=== PATIENT | female | born 1950 | race Caucasian/White ===

== ENCOUNTER 2019-05-27 09:10 | Outpatient (CLI) | payer MEDICARE, SELFPAY ==
--- NOTE | ~2019-05-27 | MM_ITS ---
EXAMINATION: MM screening ben BI w sharan HISTORY: Screening mammogram TECHNIQUE: Craniocaudal and mediolateral oblique 3-D tomosynthesis images were obtained and synthetic 2-D images were generated. CAD analysis was submitted and interpreted. COMPARISON: 05/25/2018 bilateral digital screening mammogram BREAST PARENCHYMAL COMPOSITION: There are scattered areas of fibroglandular density. FINDINGS: There is an approximately 4.7 mm circumscribed low-density opacity anteriorly in the right breast in the lateral periareolar area and a similar slightly larger approximately 6.6 mm circumscrib ed opacity anteriorly in the left lateral subareolar area. The circumscribed margins are suggestive of benign process. Further supporting benign impression inst ability of these opacities since 05/25/2018. Occasional benign calcifications are noted. No suspicious mass or architectural distortion is evident. IMPRESSION: 1. No mammographic evidence of malignancy. 2. Recommend routine screening mammography in one year. BI-RADS Category 2: Benign finding(s). Reviewed, dictated and finalized at location A. O NEWS WRITER
== END 2019-05-27 09:11 | disposition home or self-care (01) ==
LOC: ANHIMG 09:17
PROVIDERS: PCP Internal Medicine; Visit Provider Obstetrics & Gynecology
DX: Z12.31 Encounter for screening mammogram for malignant neoplasm of breast (principal)
CPT/HCPCS: 77063; 77067

== ENCOUNTER 2019-12-11 10:45 | Emergency (ER) | payer MEDICARE, SELFPAY ==
--- NOTE | ~2019-12-11 | CT_ITS ---
EXAMINATION: CTA BRAIN/CAROTID DATE: 12/11/2019 12:26 INDICATION: Headache, vision changes and paresthesias TECHNIQUE: Computed tomographic angiography (CTA) of the head and neck was performed with 100 mL Omni paque-350 intravenous contrast. Multiplanar reconstructions and maximum intensity projection 3D-recon structions of the carotid arteries and of the intracranial arteries were created by the technologist on a separate workstation. Precontrast CT of the head was also obtained. Automated exposure control and iterative reconstruction technique were employed.The dose-length product was 1477.93 mGy-cm. COMPARISON: None. FINDINGS: Carotid arteries: There is mild atherosclerotic plaque with 0% stenosis of the left and right carotid bulbs relative to normal distal artery lumen diameter (NASCET criteria). Short segments of the more cephalad left and right internal carotid arteries are obscured by motion artifact. Cervical soft tissues are unremarkab le. Moderate cervical spondylosis with straightening of the normal cervical lordosis. Visualized port ions of the airway and apices of lungs are clear. Head: No acute intracranial hemorrhage, acute infarction or abnormal extra axial fluid collection. Ventricl es are normal and symmetric. No mass/mass effect. Abnormally enhancing brain lesions. The orbits, par anasal sinuses and mastoid air cells are normal. Intracranial arteries There is no hemodynamically significant stenosis in the vertebral, basilar and internal carotid arter ies. Vertebral arteries are codominant. There are no aneurysms identified. Both A1 and P1 segments a re patent. Cerebral arterial arborization appears symmetric. IMPRESSION: 1. 0% stenosis of the left and right carotid bulbs relative to normal distal artery lumen diameter (N ASCET criteria). 2. No acute intracranial process or abnormally enhancing brain lesions. 3. Normal cerebral angiogram. Reviewed, dictated and finalized at location A. IMPRESSION: 1. 0% stenosis of the left and right carotid bulbs relative to normal distal ar rosa lumen diameter (NASCET criteria). 2. No acute intracranial process or abnormally enhancing brain lesions. 3. Normal cerebral angiogram.
[2019-12-11 10:54] VITALS: BP 144/69; PULSE 65; RESP 18; TEMP 36.6; O2SAT 100
--- NOTE | 2019-12-11 11:10 | ECG_ITS ---
Measurements Intervals [place] Rate: 60 P: 49 AR: 193 QRS: -47 QRSD: 98 T: 7 QT: 387 QTc: 387 Interpretive Statements SINUS RHYTHM LEFT ANTERIOR FASCICULAR BLOCK BORDERLINE T WAVE ABNORMALITY- ANTERIOR LEADS ABNORMAL ECG Electronically Signed On 12-11-2019 11:58:34 CDT by Ulices Garcia D.O.
--- NOTE | 2019-12-11 11:13 | ED.NEUROSD ---
HPI - Neuro Symptoms/Deficit General Chief Complaint: Neuro Symptoms/Deficit <Yamileth Byrne PA-C - Last Filed: 12/11/19 14:24> Stated Complaint: stroke symptoms <CANDIE Lomas Last Filed: 12/11/19 14:24> Time Seen by Provider: 12/11/19 11:01 <CANDIE Lomas Last Filed: 12/11/19 14:24> Source: patient <CANDIE Lomas Last Filed: 12/11/19 14:24> Mode of arrival: ambulatory <CANDIE Lomas Last Filed: 12/11/19 14:24> Limitations: no limitations <CANDIE Lomas Last Filed: 12/11/19 14:24> History of Present Illness HPI Narrative: This is a 69-year-old female that presents the emergency department for headache since yesterday. Reports yesterday she started to have some flashes in her eyes. Reports she then developed a headache. Reports she started to get very anxious and had tingling in her hands. Reports she then went to see her eye doctor who told her everything looked good with her vision. She had a similar episode this morning which prompted her to be seen in the ED. Reports a mild headache right now, otherwise has no complaints. Denies fever, stiff neck, vomiting, numbness, or weakness. <CANDIE Lomas Last Filed: 12/11/19 14:24> Related Data Home Medications: Home Medications Medication Instructions Recorded Confirmed alprazolam 0.25 mg PO PRN 12/11/19 atorvastatin 20 mg PO DAILY 12/11/19 ergocalciferol (vitamin D2) 1,250 mcg PO 12/11/19 escitalopram oxalate 10 mg PO DAILY 12/11/19 montelukast [Singulair] 4 mg PO 12/11/19 <CANDIE Lomas Last Filed: 12/11/19 14:24> Allergies/Adverse Reactions: Allergies Allergy/AdvReac Type Severity Reaction Status Date / Time No Known Allergies Allergy Unknown Verified 12/11/19 11:01 <CANDIE Lomas Last Filed: 12/11/19 14:24> Review of Systems Review of Systems: Narrative: CONSTITUTIONAL: Denies fever EYES: Reports visual changes ENT: Denies rhinorrhea, congestion, sore throat CARDIOVASCULAR: Denies chest pain RESPIRATORY: Denies dyspnea. GASTROINTESTINAL: Denies vomiting NEUROLOGIC: Reports headache. Denies numbness, or weakness. <Yamileth Byrne PA-C - Last Filed: 12/11/19 14:24> All systems reviewed & are unremarkable except as noted in HPI and below <Yamileth Byrne PA-C - Last Filed: 12/11/19 14:24> PMFSH Past Medical History Medical History: Medical History (Updated 12/11/19 @ 14:24 by Yamileth Byrne PA-C) History of anxiety History of hyperlipidemia <Yamileth Byrne PA-C - Last Filed: 12/11/19 14:24> Social History Social History: Social History (Updated 12/11/19 @ 11:16 by Yamileth Byrne PA-C) Smoking status: Never smoker Alcohol intake: current Substance use: never Gender identity (if verbalized by the patient): Female <Yamileth Byrne PA-C - Last Filed: 12/11/19 14:24> Exam Narrative: Exam Narrative: GENERAL: Well-appearing, well-nourished, and in no acute distress. HEAD: Normocephalic, atraumatic. EYES: PERRLA and EOMI. ENT: Nares clear, no rhinorrhea or epistaxis. Mucous membranes moist. Oropharynx without tonsillar hypertrophy exudate or other lesions. Bilateral TMs pearly becerra non-bulging NECK: Supple. No adenopathy or masses. No carotid bruits or JVD CHEST: Clear to auscultation. No respiratory distress. No wheezes rales or rhonchi HEART: Regular rate and rhythm. No murmur heard. Normal peripheral pulses. ABDOMEN: Soft, nontender, nondistended, normal active bowel sounds. EXTREMITIES: Normal range of motion. No edema. Strength equal in bilateral upper and lower extremities (5/5) SKIN: Warm, dry, no rash. NEURO: No focal deficits. Alert and oriented x3. Cranial nerves II through XII grossly intact. Normal [id number] PSYCH: Normal mood and affect <Yamileth Byrne PA-C - Last Filed: 12/11/19 14:24> Course Vital Signs Vital signs: Vital Signs Temperature 36.6 C
[2019-12-11 11:16] VITALS: BP 115/47; PULSE 61; RESP 26; O2SAT 96
[2019-12-11 11:30] LABS: Glucose Point of Care 101 (65-105)
[2019-12-11 11:35] LABS: Basophils Absolute Auto 0.1 K/mm3 (0.0-0.1); Basophils Percent Auto 0.8 % (0.2-1.2); Eosinophils Absolute Auto 0.1 K/mm3 (0-0.3); Eosinophils Percent Auto 1.1 % (0-4.4); Hemoglobin 12.7 g/dL (12.0-15.0); Immature Granulocyte Absolute 0.02 K/mm3 (0.00-0.031); Immature Granulocyte Percent A 0.3 % (0-0.5); Lymphocytes Absolute Auto 1.29 K/mm3 (0.9-3.2); Mean Corpuscular HGB Conc 33.4 g/dl (32-36); Mean Corpuscular Hemoglobin 26.4 pg (26-34); Mean Platelet Volume 9.4 fl (7.4-10.4); Monocytes Absolute Auto 0.5 K/mm3 (0.1-0.6); Monocytes Percent Auto 7.7 % (2.6-8.5); Neutrophils Absolute Auto 4.2 K/mm3 (1.3-6.7); Neutrophils Percent Auto 69.1 % (45.5-73.1); Platelet Count Result 328 k/mm3 (150-375); Red Blood Count 4.81 M/mm3 (4.2-5.4); Red Cell Distribution Width 13.7 % (11.5-14.5); White Blood Count 6.1 K/mm3 (4.5-10.0)
[2019-12-11 11:45] LABS: INR 1.1; Partial Thromboplastin Time 26.2 SECONDS (22.3-36.8); Prothrombin Time 13.4 Seconds (11.1-14.7)
[2019-12-11 11:49] LABS: Anion Gap 8 mmol/L (8-16); Blood Urea Nitrogen 13 mg/dL (7-17); Calcium 8.8 mg/dL (8.4-10.2); Carbon Dioxide 24 mmol/L (22-30); Chloride 96 mmol/L (98-107); Estimated CRCL calculation 37 ml/min; Estimated Glomerular Filt Rate 49; Glucose 99 mg/dL (65-105); Potassium 4.3 mmol/L (3.4-5.0); Sodium 128 mmol/L (137-145)
[2019-12-11 11:58] LABS: Troponin I < 0.012 ng/mL (0.000-0.034)
[2019-12-11 13:31] VITALS: BP 118/67; PULSE 61; RESP 25; O2SAT 99
[2019-12-11 13:46] VITALS: BP 111/62; PULSE 59; RESP 26; O2SAT 100
== END 2019-12-11 15:04 | disposition home or self-care (01) ==
PROVIDERS: Physician Assistant; Emergency Provider Emergency Medicine; PCP Internal Medicine
DX: R51 Headache (principal); F41.9 Anxiety disorder, unspecified; E78.5 Hyperlipidemia, unspecified; I44.4 Left anterior fascicular block; R94.31 Abnormal electrocardiogram [ECG] [EKG]; E87.1 Hypo-osmolality and hyponatremia
CPT/HCPCS: 36415; 70496; 70498; 80048; 82948; 84484; 85025; 85610; 85730; 93005; 99284; Q9967

== ENCOUNTER 2020-02-10 12:03 | Outpatient (CLI) | payer MEDICARE, SELFPAY ==
--- NOTE | ~2020-02-10 | XR_ITS ---
XR chest 2V DATE: 02/10/2020 12:24 INDICATION: Hypoosmolality TECHNIQUE: PA and lateral views COMPARISON: 06/02/2017 AP and lateral chest FINDINGS: Normal heart size. No hilar or mediastinal enlargement. The lungs are hyperinflated but [place] ar of infiltrate or consolidation. No pleural effusion or pulmonary vascular congestion or pneumothor ax. No hilar or mediastinal enlargement. There is aortic arch calcification. There is thoracic and lumbar scoliosis and degenerative change. IMPRESSION: Bilateral hyperinflation; no active cardiac pulmonary disease Reviewed, dictated and finalized at location A.
== END 2020-02-10 12:04 | disposition home or self-care (01) ==
PROVIDERS: PCP Internal Medicine; Visit Provider Internal Medicine Nephrology
DX: E87.1 Hypo-osmolality and hyponatremia (principal); R91.8 Other nonspecific abnormal finding of lung field
CPT/HCPCS: 71046

== ENCOUNTER 2020-05-31 13:39 | Outpatient (CLI) | payer MEDICARE, SELFPAY ==
--- NOTE | ~2020-05-31 | MM_ITS ---
EXAMINATION: MM screening [facility] BI w sharan HISTORY: Screening TECHNIQUE: Craniocaudal and mediolateral oblique 3-D tomosynthesis images were obtained and synthetic 2-D images were generated. CAD analysis was submitted and interpreted. COMPARISON: Comparison to multiple prior studies sequentially, with oldest reviewed study dated 05/25. BREAST PARENCHYMAL COMPOSITION: There are scattered areas of fibroglandular density. FINDINGS: There are stable benign-appearing bilateral breast masses. There is no evidence of suspicio us mass, calcification, or architectural distortion to suggest malignancy in either breast. There has been no suspicious interval change. IMPRESSION: 1. No mammographic evidence of malignancy. 2. Recommend routine screening mammography in one year. BI-RADS Category 2: Benign finding(s). Reviewed, dictated and finalized at location A. OGRAPHIC PRINTING PRESS OPERATOR
== END 2020-05-31 13:40 | disposition home or self-care (01) ==
LOC: ANHIMG 13:42
PROVIDERS: PCP Internal Medicine; Visit Provider Obstetrics & Gynecology
DX: Z12.31 Encounter for screening mammogram for malignant neoplasm of breast (principal)
CPT/HCPCS: 77063; 77067

== ENCOUNTER 2020-08-06 12:31 | Emergency (ER) | payer MEDICARE, SELFPAY ==
[2020-08-06] VITALS (9 sets, daily range): BP systolic 100–136; BP diastolic 54–59; PULSE 56–71; RESP 16–24; TEMP 36; O2SAT 81–100
--- NOTE | ~2020-08-06 | CT_ITS ---
EXAMINATION: CT brain wo con DATE: 08/06/2020 13:12 INDICATION: Expressive aphasia. TECHNIQUE: Computed tomography (CT) of the head was performed without intravenous contrast. The mA wa s adjusted according to patient size. Iterative reconstruction technique was employed. The dose-lengt h product was 605.33 mGy-cm. COMPARISON: Head CT 12/11/2019 FINDINGS: There is no intracranial hemorrhage, acute infarction, or abnormal intracranial mass lesion . The ventricles are normal in size. There are likely changes of ocular lens replacement surgeries. T he paranasal sinuses are clear. The mastoid air cells are normal. IMPRESSION: 1. Normal brain. Reviewed, dictated and finalized at location A. IMPRESSION: 1. Normal brain.
--- NOTE | ~2020-08-06 | XR_ITS ---
EXAMINATION: XR chest 2V DATE: 08/06/2020 13:30 INDICATION: Slurred speech. Headache. TECHNIQUE: Frontal and lateral views of the chest were obtained. COMPARISON: Chest 2 views 02/10/2020 FINDINGS: The chest demonstrates clear lungs without pneumonia, pleural effusion, or pneumothorax. Th e heart size is normal. There is mild chronic anterior wedging of multiple thoracolumbar vertebral tarah dies. IMPRESSION: 1. No acute cardiopulmonary disease. Reviewed, dictated and finalized at location A.
--- NOTE | 2020-08-06 12:45 | ECG_ITS ---
Measurements Intervals [place] Rate: 61 P: 46 [place]: 135 QRS: -50 QRSD: 101 T: 42 QT: 382 QTc: 385 Interpretive Statements SINUS RHYTHM LEFT ANTERIOR FASCICULAR BLOCK BASELINE ARTIFACT- I, III, V3 ABNORMAL ECG Electronically Signed On 08-06-2020 14:16:43 CDT by Ulices Garcia D.O.
[2020-08-06] MEDS: diphenhydrAMINE HCl INJ 50 MG/ML VIAL 25 MG IV PUSH (13:19)
[2020-08-06] MEDS: KETOROLAC 15 MG/ML VIAL (*BKC) IV PUSH (13:19)
--- NOTE | 2020-08-06 13:19 | ED.NEUROSD ---
HPI - Neuro Symptoms/Deficit General Chief Complaint: Neuro Symptoms/Deficit Stated Complaint: Possible TIA Time Seen by Provider: 08/06/20 12:31 History of Present Illness HPI Narrative: Patient is a 70-year-old female who presents ER with concerns for TIA. She reports that earlier today she began to have visual disturbance where there are lights going through her vision. They are multicolored. They wax and wane in intensity. She is still able to read and she has no double vision. No photophobia. Patient denies headache. She then reports that she started getting a little confused and could not do some math when she was finishing breakfast around 11 AM. She then called her daughter and was having difficulty having a conversation. Patient reports she could physically speak and make sense but she could not carry on a conversation due to inability to express her thoughts because she cannot gather her thoughts. No facial droop or focal weakness in arm or leg. No previous history of CVA. Patient had similar episodes this in November 2019 that were diagnosed as headache, potentially atypical migraine but patient has no history of migraines. At that time she had a CTA that was normal. Related Data Home Medications Medication Instructions Recorded Confirmed alprazolam 0.25 mg PO PRN 12/11/19 atorvastatin 20 mg PO DAILY 12/11/19 ergocalciferol (vitamin D2) 1,250 mcg PO 12/11/19 escitalopram oxalate 10 mg PO DAILY 12/11/19 montelukast [Singulair] 4 mg PO 12/11/19 denosumab 60 mg/mL subcutaneous 60 mg SUB-Q [id number] 12/29/19 syringe cyclosporine [Restasis] drp 08/06/20 loteprednol etabonate [Lotemax SM] drp 08/06/20 Allergies Allergy/AdvReac Type Severity Reaction Status Date / Time No Known Allergies Allergy Unknown Verified 08/06/20 12:42 Review of Systems Review of Systems: All systems reviewed & are unremarkable except as noted in HPI and below Constitutional: Constitutional: Denies chills, Denies fever(s) and Denies weakness Eyes: Eyes: Reports change in vision and Denies photophobia ENT: Denies nasal congestion and Denies sore throat Cardiovascular: Cardiovascular: Denies chest pain and Denies rapid heart rate Respiratory: Respiratory: Denies cough and Denies dyspnea Gastrointestinal: Gastrointestinal: Denies nausea and Denies vomiting Neurologic: Reports confusion, Denies dizziness, Denies headache(s), Denies focal weakness, Denies numbness and Denies weakness PMFSH Past Medical History Medical History (Updated 08/06/20 @ 14:57 by Tyler Bowles MD) History of anxiety History of hyperlipidemia Surgical History Surgical History (Updated 07/25/20 @ 14:58 by Yamilet Becerra [facility]) History of bladder surgery Hx of breast reduction, elective Family History Family History (Updated 07/25/20 @ 14:58 by Yamilet Becerra [facility]) Mother Hypertension Cancer Father Hypertension Grandparent Cancer Alzheimers disease Social History Social History (Updated 07/25/20 @ 14:59 by Yamilet Becerra [facility]) Smoking status: Never smoker Alcohol intake: current Substance use: never Substance use type: does not use Gender identity (if verbalized by the patient): Female Exam Narrative: Exam Narrative: GENERAL: Well-appearing, well-nourished, and in no acute distress. HEAD: Normocephalic, atraumatic. EYES: PERRLA and EOMI. ENT: Mucous membranes moist. CHEST: Clear to auscultation. No respiratory distress. HEART: Regular rate and rhythm. No murmur heard. Normal peripheral pulses. ABDOMEN: Soft, nontender, nondistended. EXTREMITIES: Normal range of motion. No edema. SKIN: Warm, dry, no rash. NEURO: Cranial nerves II through XII intact. No upper or lower extremity drift. Normal finger-nose testing and [id number] testing. No expressive aphasia or dysarthria. Alert and oriented x3.. Course Course Emergency Course: Informed of results. Sx resolved with reglan/toradol/benadryl/iv
[2020-08-06] MEDS: METOCLOPRAMIDE HCL INJ 10 MG/2 ML VIAL IV PUSH (13:20)
[2020-08-06] MEDS: SODIUM CHLORIDE 0.9% IV 1,000 ML 999 ML IV CONT (13:20)
[2020-08-06 13:35] LABS: Basophils Absolute Auto 0.1 K/mm3 (0.0-0.1); Basophils Percent Auto 0.8 % (0.2-1.2); Eosinophils Absolute Auto 0.1 K/mm3 (0-0.3); Eosinophils Percent Auto 1.1 % (0-4.4); Hematocrit 42.2 % (37.0-47.0); Hemoglobin 13.5 g/dL (12.0-15.0); Immature Granulocyte Absolute 0.01 K/mm3 (0.00-0.031); Immature Granulocyte Percent A 0.2 % (0-0.5); Lymphocytes Absolute Auto 1.76 K/mm3 (0.9-3.2); Lymphocytes Percent Auto 28.5 % (18.3-44.2); Mean Corpuscular Hemoglobin 26.4 pg (26-34); Mean Corpuscular Volume 82.4 fl (80-100); Mean Platelet Volume 9.7 fl (7.4-10.4); Monocytes Absolute Auto 0.4 K/mm3 (0.1-0.6); Monocytes Percent Auto 6.6 % (2.6-8.5); Neutrophils Absolute Auto 3.9 K/mm3 (1.3-6.7); Neutrophils Percent Auto 62.8 % (45.5-73.1); Platelet Count Result 323 k/mm3 (150-375); Red Blood Count 5.12 M/mm3 (4.2-5.4); Red Cell Distribution Width 14.1 % (11.5-14.5); White Blood Count 6.2 K/mm3 (4.5-10.0)
[2020-08-06 13:39] LABS: Add Urine Microscopic? YES; Appearance Urine Clear (Clear); Bilirubin Urine Negative (Negative); Blood Urine 1+ (Negative); Color Urine Straw (Yellow); Glucose Urine UA Negative (Negative); Ketones Urine Negative (Negative); Leukocyte Esterase Ur Negative LEU/UL (Negative); Mucus Urine Rare /lpf; Nitrate Urine Negative (Negative); Protein Urine Negative (Negative); RBC Urine 0-2 /hpf (0-2); Specific Grav Ur 1.008 (1.001-1.035); Squamous Epithelial Cell Urine Rare /hpf (Few); Urobilinogen Urine Negative mg/dL (<2.0); WBC Urine 0-3 /hpf
[2020-08-06 13:44] LABS: Anion Gap 6 mmol/L (8-16); Blood Urea Nitrogen 18 mg/dL (7-17); Calcium 9.4 mg/dL (8.4-10.2); Carbon Dioxide 29 mmol/L (22-30); Chloride 101 mmol/L (98-107); Estimated CRCL calculation 31 ml/min; Estimated Glomerular Filt Rate 40; Glucose 121 mg/dL (65-105); Potassium 3.7 mmol/L (3.4-5.0); Sodium 136 mmol/L (137-145)
[2020-08-06 13:50] LABS: INR 0.9; Prothrombin Time 12.7 Seconds (11.1-14.7)
[2020-08-06 13:56] LABS: Troponin I < 0.012 ng/mL (0.000-0.034)
== END 2020-08-06 15:17 | disposition home or self-care (01) ==
PROVIDERS: Emergency Provider Emergency Medicine; PCP Internal Medicine
DX: G43.909 Migraine, unspecified, not intractable, without status migrainosus (principal); F41.9 Anxiety disorder, unspecified; E78.5 Hyperlipidemia, unspecified; I44.4 Left anterior fascicular block
CPT/HCPCS: 36415; 70450; 71046; 80048; 81001; 84484; 85025; 85610; 85730; 93005; 96361; 96374; 96375; 99284; J1200; J1885; J2765; J7030

== ENCOUNTER 2020-11-16 12:34 | Outpatient (CLI) | payer MEDICARE, SELFPAY ==
--- NOTE | ~2020-11-16 | NM_ITS ---
EXAMINATION: NM renal flow and function DATE: 11/16/2020 14:50 INDICATION: Gauge 3 be chronic kidney disease TECHNIQUE: 8 mCi Tc-99m MAG3 was administered IV. The patient was scanned in the supine position. A posterior abdominal radionuclide angiogram was obtained. A subsequent time course of static images of the kidneys, ureters, and bladder was obtained. COMPARISON: None FINDINGS: The posterior abdominal radionuclide angiogram and sequential static images show normal size, positio n, and morphology of the kidneys. Peak renal parenchymal uptake was 2.5 min in left kidney and 2.5 mi n in right kidney (normal peak 3-5 minutes). The relative early renal uptake was 36.9% on the left a nd 63.1% on the right (<40% is abnormal). No abnormalities of the ureters or bladder are seen. T1/2 for clearance of activity from the left kidney and proximal collecting system was 9 minutes. T1/2 for clearance of activity from the right kidney and proximal collecting system was 24 minutes. IMPRESSION: 1. Mildly decreased relative renal function of the left kidney which contributes 36.9% of total tra l function. 2. Delayed activity clearance from the right kidney with T1/2 of 24 minutes. This could be due to no nspecific nephropathy, obstruction or a patulous collecting system. Given that the T1/2 remains lexi l in the left kidney which provides a lesser degree of total renal function and the fact that the jayro ority of the activity on the delayed images at the right kidney appears localized to the renal hilum would favor either obstruction or patulous collecting system. Would recommend renal ultrasound to ass ess for hydronephrosis. Could also consider diuretic renography. Reviewed, dictated and finalized at location A. IMPRESSION: 1. Mildly decreased relative renal function of the left kidney which contribut es 36.9% of total renal function. 2. Delayed activity clearance from the right kidney with T1/2 of 24 minutes. T his could be due to nonspecific nephropathy, obstruction or a patulous collecti ng system. Given that the T1/2 remains normal in the left kidney which provides a lesser degree of total renal function and the fact that the majority of the activity on the delayed images at the right kidney appears localized to the noah al hilum would favor either obstruction or patulous collecting system. Would re commend renal ultrasound to assess for hydronephrosis. Could also consider diur etic renography.
== END 2020-11-16 12:35 | disposition home or self-care (01) ==
LOC: ANHIMG 12:35
PROVIDERS: PCP Internal Medicine; Visit Provider Internal Medicine Nephrology
DX: N18.32 Chronic kidney disease, stage 3b (principal)
CPT/HCPCS: 78707; A9562

== ENCOUNTER 2020-12-06 15:22 | Outpatient (CLI) | payer MEDICARE, SELFPAY ==
--- NOTE | ~2020-12-06 | US_ITS ---
EXAMINATION: US renal BI DATE: 12/06/2020 15:43 INDICATION: Stage III B chronic kidney disease TECHNIQUE: Multiple ultrasound grayscale images of the kidneys were obtained. COMPARISON: 03/10/2018 FINDINGS: The right kidney measures 8.2 x 4.1 x 4.1 cm. The left kidney measures 8.6 x 3.8 x 4.9 cm. The kidney s demonstrate normal echogenicity. There is no hydronephrosis in either kidney. No stones identified . The bladder is normal. IMPRESSION: 1. Likely age-related mild bilateral renal atrophy. Otherwise normal kidneys with no hydronephrosis. Reviewed, dictated and finalized at location B. IMPRESSION: 1. Likely age-related mild bilateral renal atrophy. Otherwise normal kidneys w ith no hydronephrosis.
== END 2020-12-06 15:23 | disposition home or self-care (01) ==
LOC: ANHIMG 15:23
PROVIDERS: PCP Internal Medicine; Visit Provider Internal Medicine Nephrology
DX: N18.32 Chronic kidney disease, stage 3b (principal)
CPT/HCPCS: 76775

== ENCOUNTER 2021-07-12 15:32 | Outpatient (CLI) | payer MEDICARE, SELFPAY ==
--- NOTE | ~2021-07-12 | MM_ITS ---
EXAMINATION: MM screening ben BI w sharan HISTORY: Screening mammogram, family history of breast cancer in her sister. TECHNIQUE: Craniocaudal and mediolateral oblique 3-D tomosynthesis images were obtained and synthetic 2-D images were generated. CAD analysis was submitted and interpreted. COMPARISON: 05/31/2020, 05/27/2019, 05/25/2018 BREAST PARENCHYMAL COMPOSITION: There are scattered areas of fibroglandular density. FINDINGS: There is no suspicious mass, calcification, or architectural distortion to suggest malignan cy in either breast. There has been no suspicious interval change. IMPRESSION: 1. No mammographic evidence of malignancy. 2. Recommend routine screening mammography in one year. BI-RADS Category 1: Negative Reviewed, dictated and finalized at location A.
== END 2021-07-12 15:33 | disposition home or self-care (01) ==
PROVIDERS: PCP Internal Medicine; Visit Provider Obstetrics & Gynecology
DX: Z12.31 Encounter for screening mammogram for malignant neoplasm of breast (principal)
CPT/HCPCS: 77063; 77067

== ENCOUNTER 2021-12-03 13:30 | Outpatient (RCR) | payer MEDICARE, SELFPAY ==
--- NOTE | 2021-11-07 13:31 | PTOPEVAL ---
PHYSICAL THERAPY INITIAL EVALUATION. Thank you for referring Lucia Blas to [facility].? The patient is scheduled to be seen for therapy? 1x/week for 4 weeks. Please review, sign, date and return this plan of care PRIYA. I agree with and certify that the following plan of care is medically necessary. Referring Physician Date Attending Provider: Arie Ramey, MD *PT Outpatient Evaluation Start: 11/07/21 Evaluation Information Diagnosis low back pain Subjective Information Pt reports a long history of Query Text:As Reported By Patient/ mild low back pain with some Family scoliosis. Pt states a couple of months ago she was trying to move her refrigerator away from the wall. She states initially she had pain on both sides with pain radiating down into her R leg. She states the radiating symptoms down her leg have since stopped. She reports the back is still sore, her soreness increases with activity. She is now able to sleep through the night without pain. She states she can sit for as long as she wants, and her standing time has always been limited. Pain Assessment Lower Back Reported Pain Level 0 Pain Description Aching,Soreness,Tightness Lowest Pain Intensity 0 Greatest Pain Intensity 4 Pain Aggravating Factors Bending,Exercise/Activity Lumbar ROM Lumbar Flexion (0-90) 60 Lumbar Flexion Active Floor Lumbar Extension (0-40) 30 Lateral Flexion able to reach lateral knee Query Text:Active Hands to: joint line bilaterally Lateral Rotation Right (0-45) 35 Lateral Rotation Left (0-45) 35 Lumbar ROM 75% of Normal Lumbar Comments Majority of motion through hip flexion Lower Extremity Range of Motion General Lower Extremity Range of Motion WFL/Left,WFL/Right Lower Extremity Muscle Strength Testing General Lower Extremity Strength WFL/Left,WFL/Right Gross Lower Extremity Strength José LE grossly 4+/5 josé hip abduction 3/5 Muscle Length Testing Piriformis w/Hip Flexion <90 Degrees (R) WFL,(L) WFL Right Prone Hip Internal Rotator Length 30 Left Prone Hip Internal Rotator Length ( 30 Right Prone Hip External Rotator Length 60 Left P
--- NOTE | 2021-12-03 14:11 | PTOPEVAL ---
PHYSICAL THERAPY PROGRESS REPORT AND DISCHARGE SUMMARY. Thank you for referring Lucia Blas to [facility].? The patient is to be discharged from skilled physical therapy services at this time. Please review, sign, date and return this plan of care PRIYA. I agree with and certify that the following plan of care is medically necessary. Referring Physician Date Attending Provider: Arie Ramey, MD *PT Outpatient Evaluation Start: 11/07/21 Evaluation Information Diagnosis low back pain Subjective Information Pt states things are getting Query Text:As Reported By Patient/ better. She states her Family exercises help a lot. She states she is as good as she thinks she can get considering the arthritis in her back. She reports being able to stand for at least 20 min still prior to needing to sit. Pt reports she pulled weeds this morning. Pain Assessment Lower Back Reported Pain Level 0 Pain Description Aching Greatest Pain Intensity 2 Lumbar ROM Lumbar Flexion (0-90) 60 Lumbar Flexion Active Floor Lumbar Extension (0-40) 30 Lateral Flexion able to reach lateral knee Query Text:Active Hands to: joint line bilaterally Lateral Rotation Right (0-45) 40 Lateral Rotation Left (0-45) 40 Lumbar ROM 75% of Normal Lumbar Comments Majority of motion through hip flexion Lower Extremity Range of Motion General Lower Extremity Range of Motion WFL/Left,WFL/Right Lower Extremity Muscle Strength Testing General Lower Extremity Strength WFL/Left,WFL/Right Gross Lower Extremity Strength José LE grossly 4+/5 josé hip abduction 4-/5 - able to lift and carry 20lb from ground level without deviations Gait Assessment Gait Pattern Narrow Based Gait Other Gait Observations mild increased lateral hip sway 2 Minute Walk Total Distance Walked (feet) 470 2 Minute Walk Gait Speed Score (feet/s) 3.91 2 Minute Walk Test Comments Initally: 425ft - Increased reports of thoracic pain after 12/03/21: 470ft - no report of increase back pain Stair Climbing Assessment Stair Climbing Assistive Devices None Technique Alternating Steps Stair Climbing Direction Both Up and Down Stair Climbing Comments no notable deviations Yarelis
== END 2021-12-14 15:30 | disposition home or self-care (01) ==
LOC: ANHGOSHPT 13:30
PROVIDERS: PCP Internal Medicine; Visit Provider Internal Medicine
DX: M54.50 Low back pain, unspecified (principal)
CPT/HCPCS: 97110; 97112; 97140; 97161; 97530

== ENCOUNTER 2022-09-10 11:40 | Emergency (ER) | payer MEDICARE, SELFPAY ==
[2022-09-10] VITALS (18 sets, daily range): BP systolic 115–137; BP diastolic 43–70; PULSE 62–76; RESP 13–27; TEMP 36.3; O2SAT 99–100
--- NOTE | ~2022-09-10 | XR_ITS ---
EXAMINATION: XR chest 2V DATE: 09/10/2022 13:14 INDICATION: Chest pain. TECHNIQUE: Frontal and lateral views of the chest were obtained. COMPARISON: Chest 2 views 08/06/2020 FINDINGS: The chest demonstrates clear lungs without pneumonia, pleural effusion, or pneumothorax. Th e heart size is normal. There are prominent paracardial fat pads. There is a chronic compression frac ture in lower thoracic spine. IMPRESSION: 1. No acute cardiopulmonary disease. Reviewed, dictated and finalized at location L.
--- NOTE | 2022-09-10 11:42 | ECG_ITS ---
Measurements Intervals [place] Rate: 57 P: 62 MA: 168 QRS: -50 QRSD: 102 T: 41 QT: 379 QTc: 372 Interpretive Statements SINUS BRADYCARDIA POSSIBLE LEFT ATRIAL ENLARGEMENT LEFT ANTERIOR FASCICULAR BLOCK CANNOT RULE OUT SEPTAL INFARCT, AGE INDETERMINATE ABNORMAL ECG COMPARED TO ECG 08/06/2020 12:44:26 SINUS BRADYCARDIA NOW PRESENT Electronically Signed On 09-10-2022 15:39:32 CDT by Ulices Garcia D.O.
[2022-09-10 12:45] LABS: Alanine Aminotransferase 22 U/L (6-35); Alkaline Phosphatase 61 U/L (38-126); Anion Gap 7 mmol/L (8-16); Aspartate Amino Transferase 30 U/L (14-36); Bilirubin,Total 0.9 mg/dL (0.2-1.3); Blood Urea Nitrogen 15 mg/dL (7-17); Calcium 9.2 mg/dL (8.4-10.2); Carbon Dioxide 27 mmol/L (22-30); Chloride 96 mmol/L (98-107); Estimated Glomerular Filt Rate 49; Glucose 115 mg/dL (65-110); INR 0.9; Lipase 98 U/L (23-300); Sodium 130 mmol/L (137-145)
[2022-09-10 12:46] LABS: Partial Thromboplastin Time 25.4 SECONDS (22.3-36.8)
[2022-09-10 12:54] LABS: Troponin I < 0.012 ng/mL (0.000-0.034)
--- NOTE | 2022-09-10 13:37 | ED.GENADULT ---
HPI - General Adult General Chief complaint: Chest Pain Stated complaint: UPPER CHEST PRESSURE AFTER EATING Time Seen by Provider: 09/10/22 13:03 History of Present Illness HPI narrative: 72-year-old female presented the ED for evaluation of intermittent difficulty swallowing. Patient states over the course of the last few months she has had some increased difficulty swallowing. Patient states over the last few days it acutely worsened. Patient states yesterday she was trying to eat some vegetable soup and felt that she was unable to get it down. Patient is handling her secretions. Patient states she was able to get liquids and ice cream down without issue. Patient denies any emesis. Patient has had a previous scope by GI and did call her primary care physician today and got set up for outpatient follow-up with Dr. Johnson. Does take Raymondcydney RUSSO. Related Data Home Medications Medication Instructions Recorded Confirmed alprazolam 0.25 mg tablet 0.25 mg PO PRN anxiety 12/11/19 01/11/22 atorvastatin 20 mg tablet 20 mg PO DAILY 12/11/19 01/11/22 ergocalciferol (vitamin D2) 1,250 1,250 mcg PO 12/11/19 01/11/22 mcg (50,000 unit) capsule escitalopram oxalate 10 mg tablet 10 mg PO DAILY 12/11/19 01/11/22 denosumab 60 mg/mL subcutaneous 60 mg subcut [id number] 12/29/19 01/11/22 syringe (Prolia) Allergies Allergy/AdvReac Type Severity Reaction Status Date / Time No Known Allergies Allergy Unknown Verified 05/29/22 15:04 Review of Systems Review of Systems: All systems reviewed & are unremarkable except as noted in HPI and below PMFSH Past Medical History Medical History EDER positive (~2019) History of anxiety History of hyperlipidemia Renal insufficiency Surgical History Surgical History History of bladder surgery Hx of breast reduction, elective Family History Family History Mother Hypertension Cancer Father Hypertension Grandparent Cancer Alzheimers disease Social History Social History Smoking status: Never smoker Alcohol intake: current Substance use: never Substance use type: does not use Lack of Transportation: No Lack of Food: Never True Current Housing: I Have Housing Concerned About Future Housing: No Difficulty Paying Gas/Electric Bills: No Difficulty Paying for Meds: No Currently Unemployed: No Education: Associate Degree Difficulty w/ Childcare or Family Care: No Gender identity (if verbalized by the patient): Female Exam Narrative: APPEARANCE: Well appearing, no pain, no distress, well-nourished. HEAD: normocephalic, atraumatic. EYES: PERRLA/EOMI, conjunctivae clear. NOSE: Normal no drainage NECK: Supple. No adenopathy, no masses. RESPIRATORY: Airway patent, respirations nonlabored. Clear to auscultation bilaterally, no rales, rhonchi, wheezing. CARDIOVASCULAR: Regular rate and rhythm without murmurs rubs or gallops. ABDOMINAL: Soft, nontender, nondistended, normal bowel sounds MUSCULOSKELETAL: Moves all extremities. Strength/ROM intact, No edema, No calf tenderness. NEURO: Alert. Cranial nerves II through XII intact. Grossly intact SKIN: Warm, dry. Normal Color Course Course Emergency Course: Attempting a p.o. challenge. Patient has a CMP that is similar to her baseline. Chest x-ray showed no acute cardiopulmonary process. Patient does take Pepcid AC. Patient is able to tolerate liquids. Case was discussed with Dr. Johnson and he was comfortable with the patient having outpatient follow-up. Patient believes she already does have follow-up scheduled but she was told to call her primary care physician just to make sure that the referral has been processed correctly. Vital Signs Vital signs: Vital Signs Temperature 97.3 F L 0
[2022-09-10 13:50] LABS: Basophils Percent Auto 0.4 % (0.2-1.2); Eosinophils Percent Auto 0.3 % (0-4.4); Hemoglobin 12.6 g/dL (12.0-15.0); Immature Granulocyte Absolute 0.04 K/mm3 (0.00-0.031); Immature Granulocyte Percent A 0.5 % (0-0.5); Lymphocytes Absolute Auto 1.25 K/mm3 (0.9-3.2); Lymphocytes Percent Auto 16.9 % (18.3-44.2); Mean Corpuscular HGB Conc 32.3 g/dl (32-36); Mean Corpuscular Hemoglobin 26.6 pg (26-34); Mean Corpuscular Volume 82.3 fl (80-100); Mean Platelet Volume 9.7 fl (7.4-10.4); Monocytes Absolute Auto 0.4 K/mm3 (0.1-0.6); Monocytes Percent Auto 5.3 % (2.6-8.5); Neutrophils Absolute Auto 5.7 K/mm3 (1.3-6.7); Neutrophils Percent Auto 76.6 % (45.5-73.1); Platelet Count Result 352 k/mm3 (150-375); Red Blood Count 4.74 M/mm3 (4.2-5.4); Red Cell Distribution Width 13.8 % (11.5-14.5); White Blood Count 7.4 K/mm3 (4.5-10.0)
[2022-09-10 15:14] LABS: Troponin I < 0.012 ng/mL (0.000-0.034)
== END 2022-09-10 15:56 | disposition home or self-care (01) ==
PROVIDERS: General Practice; Emergency Provider Emergency Medicine; PCP Internal Medicine
DX: R13.10 Dysphagia, unspecified (principal); E78.5 Hyperlipidemia, unspecified; N28.9 Disorder of kidney and ureter, unspecified; F41.9 Anxiety disorder, unspecified
CPT/HCPCS: 36415; 71046; 80053; 83690; 84484; 85025; 85610; 85730; 93005; 99284

== ENCOUNTER 2022-09-19 10:24 | Outpatient (CLI) | payer MEDICARE, SELFPAY ==
--- NOTE | ~2022-09-19 | MM_ITS ---
EXAMINATION: MM screening ben BI w sharan HISTORY: Screening TECHNIQUE: Craniocaudal and mediolateral oblique 3-D tomosynthesis images were obtained and synthetic 2-D images were generated. CAD analysis was submitted and interpreted. COMPARISON: Comparison to multiple prior studies sequentially, with oldest reviewed study dated 05/25. BREAST PARENCHYMAL COMPOSITION: There are scattered areas of fibroglandular density. FINDINGS: There is no evidence of suspicious mass, calcification, or architectural distortion to sugg est malignancy in either breast. There has been no suspicious interval change. IMPRESSION: 1. No mammographic evidence of malignancy. 2. Recommend routine screening mammography in one year. BI-RADS Category 1: Negative Reviewed, dictated and finalized at location A.
== END 2022-09-19 10:25 | disposition home or self-care (01) ==
PROVIDERS: PCP Internal Medicine; Visit Provider Obstetrics & Gynecology
DX: Z12.31 Encounter for screening mammogram for malignant neoplasm of breast (principal)
CPT/HCPCS: 77063; 77067

== ENCOUNTER 2022-10-09 01:43 | Day surgery (SDC) | payer MEDICARE, SELFPAY ==
[2022-09-27 14:30] VITALS: BMI 24.0
--- NOTE | 2022-10-08 16:26 | PM.HPGS ---
History of Present Illness History of Present Illness Consent: Risks, benefits, and alternatives have been discussed and questions answered. Patient agrees to proceed with procedure. Chief complaint: Upper Abdominal Pain Narrative: Lucia Blas is a 72 year old female with difficulty swallowing. Not only is it difficult to get things to go down but she has pressure in her chest afterwards. she notices particularly when she was using Flonase frequently. She has some heartburn for which she usually uses an [id number] medication as needed. Review of Systems Review of Systems: All systems reviewed & are unremarkable except as noted in HPI and below PMFSH Past Medical History Medical History EDER positive (~2019) History of anxiety History of hyperlipidemia Renal insufficiency Surgical History Surgical History History of bladder surgery Hx of breast reduction, elective Family History Family History Mother Hypertension Cancer Father Hypertension Grandparent Cancer Alzheimers disease Social History Social History Smoking status: Never smoker Alcohol intake: current Alcohol use details: occasionally Substance use: never Substance use type: does not use Lack of Transportation: No Lack of Food: Never True Current Housing: I Have Housing Concerned About Future Housing: No Difficulty Paying Gas/Electric Bills: No Difficulty Paying for Meds: No Currently Unemployed: No Education: Associate Degree Difficulty w/ Childcare or Family Care: No Living arrangements: with family Additional living arrangements comments: lives with disabled Gender identity (if verbalized by the patient): Female Spiritual care concerns: No Meds Home Medications and Allergies Home Medications Medication Instructions Recorded Confirmed Type alprazolam 0.25 mg tablet 0.25 mg PO PRN anxiety 12/11/19 09/27/22 History atorvastatin 20 mg tablet 20 mg PO DAILY 12/11/19 09/27/22 History ergocalciferol (vitamin D2) 1,250 See Rx Instructions .Route .COMPLEX 12/11/19 09/27/22 History mcg (50,000 unit) capsule escitalopram oxalate 10 mg tablet 10 mg PO DAILY 12/11/19 10/09/22 History denosumab 60 mg/mL subcutaneous 60 mg subcut [id number] 12/29/19 09/27/22 History syringe (Prolia) aspirin 81 mg tablet 81 mg PO DAILY 09/27/22 09/27/22 History Allergies Allergy/AdvReac Type Severity Reaction Status Date / Time No Known Allergies Allergy Unknown Verified 10/09/22 09:34 Exam Const: General: alert Orientation/consciousness: patient oriented x3 Resp: Auscultation: clear to auscultation bilaterally Cardio: Rhythm: regular rhythm GI: GI Palp: Yes Soft to palpation and No Tenderness to palpation present (GI) Neuro: General: patient oriented x3 Assessment and Plan Assessment and plan (1) Difficulty in swallowing: Code(s): R13.10 - Dysphagia, unspecified Status: Inactive Assessment and Plan: EGD with possible biopsy or dilatation or cautery.
[2022-10-09 09:35] VITALS: BP 127/53; PULSE 67; RESP 16; TEMP 36.1; O2SAT 100
[2022-10-09] MEDS: LACTATED RINGERS 1,000 ML 150 ML IV CONT (09:45)
--- NOTE | 2022-10-09 10:20 | WPDANESEPPF ---
Anes - Initial Pre Proc Eval Procedure: Operation Date: 10/09/22 10:45 Proposed Procedures p Esophagogastroduodenoscopy - Maurizio Johnson MD Date/Time: 10/09/22 10:20 Surgeon: Maurizio Johnson MD Pre Op Diagnosis: Upper Abdominal Pain Patient Data Age: 72 Gender: F Height: 1.63 m Weight: 63.5 kg Last Vital Signs Temp 97 F L 10/09/22 09:35 Pulse 67 10/09/22 09:35 Resp 16 10/09/22 09:35 BP 127/53 L 10/09/22 09:35 Pulse Ox 100 10/09/22 09:35 O2 Del Method Room Air 10/09/22 09:35 Allergies Allergy/AdvReac Type Severity Reaction Status Date / Time No Known Allergies Allergy Unknown Verified 10/09/22 09:34 Home Medications Medication Instructions Recorded Confirmed Type alprazolam 0.25 mg tablet 0.25 mg PO PRN anxiety 12/11/19 09/27/22 History atorvastatin 20 mg tablet 20 mg PO DAILY 12/11/19 09/27/22 History ergocalciferol (vitamin D2) 1,250 See Rx Instructions .Route .COMPLEX 12/11/19 09/27/22 History mcg (50,000 unit) capsule escitalopram oxalate 10 mg tablet 10 mg PO DAILY 12/11/19 10/09/22 History denosumab 60 mg/mL subcutaneous 60 mg subcut [id number] 12/29/19 09/27/22 History syringe (Prolia) aspirin 81 mg tablet 81 mg PO DAILY 09/27/22 09/27/22 History Patient hx anesthesia problems: none Family hx anesthesia problems: none Results Review: All pre-operative results and documents have been reviewed as part of the pre-operative evaluation. [facility] Past Medical History Medical History EDER positive (~2019) History of anxiety History of hyperlipidemia Renal insufficiency Surgical History Surgical History History of bladder surgery Hx of breast reduction, elective Family History Family History Mother Hypertension Cancer Father Hypertension Grandparent Cancer Alzheimers disease Social History Social History Smoking status: Never smoker Alcohol intake: current Alcohol use details: occasionally Substance use: never Substance use type: does not use Lack of Transportation: No Lack of Food: Never True Current Housing: I Have Housing Concerned About Future Housing: No Difficulty Paying Gas/Electric Bills: No Difficulty Paying for Meds: No Currently Unemployed: No Education: Associate Degree Difficulty w/ Childcare or Family Care: No Living arrangements: with family Additional living arrangements comments: lives with disabled Gender identity (if verbalized by the patient): Female Spiritual care concerns: No Anes - Eval Final PreProcedure Day of Procedure 10/09/22 10:20 Patient weight: normal Heart: regular rate and rhythm Lungs: clear to auscultation Neurological: alert and oriented Last oral intake: >/= 8 hours ASA classification: III Emergent: no Anesthetic plan: proceed Anesthesia type and monitoring: general GIVS and standard monitoring Results Review: All pre-operative results and documents have been reviewed as part of the pre-operative evaluation. Informed Consent: The patient's anesthetic plan and its attendant risks and benefits were discussed with the patient/family/POA. Questions were solicited and answers provided to the satisfaction of the patient/family/POA.
[2022-10-09] MEDS: SIMETHICONE ORAL SUSPENSION 20 MG/0.3 ML 30 ML BOTTLE 0.6 ML IRRIGATION (10:46)
[2022-10-09 10:54] VITALS: BP 89/54; PULSE 75; RESP 19; O2SAT 99
[2022-10-09 11:04] VITALS: BP 111/62; PULSE 61; RESP 16; O2SAT 100
[2022-10-09 11:14] VITALS: BP 116/77; PULSE 63; RESP 17; O2SAT 100
== END 2022-10-09 11:22 | disposition home or self-care (01) ==
PROVIDERS: PCP Internal Medicine; Visit Provider Internal Medicine Gastroenterology
PROC: 0DJ08ZZ Inspection of Upper Intestinal Tract, Via Natural or Artificial Opening Endoscopic (ICD-10-PCS; CPT 43235; principal; 2022-10-09 10:45)
DX: R13.10 Dysphagia, unspecified (principal); K44.9 Diaphragmatic hernia without obstruction or gangrene; E78.5 Hyperlipidemia, unspecified; F41.9 Anxiety disorder, unspecified; R76.0 Raised antibody titer; Z79.620 Long term (current) use of immunosuppressive biologic
CPT/HCPCS: 43239; 87081; 88305; J2704; J7120

== ENCOUNTER 2023-05-27 01:07 | Day surgery (SDC) | payer MEDICARE, SELFPAY ==
[2023-03-27 12:12] VITALS: BMI 23.6
--- NOTE | 2023-05-01 09:38 | PC.NURSE ---
Pt's colonoscopy was rescheduled from 04/22/2023 to now 05/27/2023. PAT call was completed in March. Pt states no changes in health history or medications since then. Pt aware of new date and time 05/27/2023 at 0930/1100.
--- NOTE | 2023-05-23 11:09 | SUR.PREOP ---
Patient called regarding upcoming procedure. VOICEMAIL LEFT REGARDING UPCOMING APPOINTMENT. INSTRUCTED TO CALL WITH ANY QUESTIONS. CONFIRMED TIME AND DATE.
[2023-05-27 09:42] VITALS: BMI 22.4
[2023-05-27 09:45] VITALS: BP 103/46; PULSE 75; RESP 20; TEMP 36; O2SAT 100
[2023-05-27] MEDS: LACTATED RINGERS 1,000 ML 150 ML IV CONT (09:47)
--- NOTE | 2023-05-27 10:37 | WPDANESEPPF ---
Anes - Initial Pre Proc Eval Procedure: Operation Date: 05/27/23 11:00 Proposed Procedures p Colonoscopy - Maurizio Johnson MD Date/Time: 05/27/23 10:37 Surgeon: Maurizio Johnson MD Pre Op Diagnosis: Diarrhea Patient Data Age: 73 Gender: F Height: 1.63 m Weight: 59.1 kg Last Vital Signs Temp 96.8 F L 05/27/23 09:45 Pulse 75 05/27/23 09:45 Resp 20 05/27/23 09:45 BP 103/46 L 05/27/23 09:45 Pulse Ox 100 05/27/23 09:45 O2 Del Method Room Air 05/27/23 09:45 Allergies Allergy/AdvReac Type Severity Reaction Status Date / Time No Known Allergies Allergy Unknown Verified 05/27/23 09:40 Home Medications Medication Instructions Recorded Confirmed Type alprazolam 0.25 mg tablet 0.25 mg PO PRN anxiety 12/11/19 05/27/23 History atorvastatin 20 mg tablet 20 mg PO DAILY 12/11/19 05/27/23 History denosumab 60 mg/mL subcutaneous 60 mg subcut [id number] 12/29/19 05/27/23 History syringe (Prolia) escitalopram oxalate 10 mg tablet 5 mg PO DAILY 11/26/22 05/27/23 History aspirin 81 mg tablet 81 mg PO .qed 12/05/22 05/27/23 History tizanidine 4 mg capsule 4 mg PO TID PRN spasms #20 caps 03/05/23 05/27/23 Rx Pepcid AC 10 mg PO DAILY 03/27/23 05/27/23 History Patient hx anesthesia problems: none Family hx anesthesia problems: none Results Review: All pre-operative results and documents have been reviewed as part of the pre-operative evaluation. [facility] Past Medical History Medical History EDER positive (~2019) History of anxiety History of hyperlipidemia Renal insufficiency Surgical History Surgical History History of bladder surgery Hx of breast reduction, elective Family History Family History Mother Hypertension Cancer Father Hypertension Grandparent Cancer Alzheimers disease Social History Social History Social History: Caffeine- coffee/tea Smoking status: Never smoker Alcohol intake: current Drinks per week: 2 Alcohol use details: occasionally Substance use: never Substance use type: does not use Lack of Transportation: No Lack of Food: Never True Current Housing: I Have Housing Concerned About Future Housing: No Difficulty Paying Gas/Electric Bills: No Difficulty Paying for Meds: No Currently Unemployed: No Education: Associate Degree Difficulty w/ Childcare or Family Care: No Living arrangements: with family Additional living arrangements comments: lives with disabled Occupation/Education: retired Gender identity (if verbalized by the patient): Female Spiritual care concerns: No Anes - Eval Final PreProcedure Day of Procedure 05/27/23 10:37 Patient weight: normal Heart: regular rate and rhythm Lungs: clear to auscultation Airway: Mallampati scale class II Neurological: alert and oriented Last oral intake: >/= 8 hours ASA classification: III Emergent: no Anesthetic plan: proceed Anesthesia type and monitoring: general GIVS and standard monitoring Results Review: All pre-operative results and documents have been reviewed as part of the pre-operative evaluation. Informed Consent: The patient's anesthetic plan and its attendant risks and benefits were discussed with the patient/family/POA. Questions were solicited and answers provided to the satisfaction of the patient/family/POA.
[2023-05-27 11:06] VITALS: BP 94/54; PULSE 67; RESP 24; O2SAT 98
[2023-05-27 11:16] VITALS: BP 96/61; PULSE 65; RESP 19; O2SAT 100
[2023-05-27 11:23] VITALS: BP 111/65; PULSE 62; RESP 16; O2SAT 100
--- NOTE | 2023-05-28 16:56 | PM.HPGS ---
History of Present Illness History of Present Illness Consent: Risks, benefits, and alternatives have been discussed and questions answered. Patient agrees to proceed with procedure. Chief complaint: Diarrhea Narrative: Lucia Blas is a 73 year old female referred for colonoscopy due to chronic diarrhea. Review of Systems Review of Systems: All systems reviewed & are unremarkable except as noted in HPI and below PMFSH Past Medical History Medical History EDER positive (~2019) History of anxiety History of hyperlipidemia Renal insufficiency Surgical History Surgical History History of bladder surgery Hx of breast reduction, elective Family History Family History Mother Hypertension Cancer Father Hypertension Grandparent Cancer Alzheimers disease Social History Social History Social History: Caffeine- coffee/tea Smoking status: Never smoker Alcohol intake: current Drinks per week: 2 Alcohol use details: occasionally Substance use: never Substance use type: does not use Lack of Transportation: No Lack of Food: Never True Current Housing: I Have Housing Concerned About Future Housing: No Difficulty Paying Gas/Electric Bills: No Difficulty Paying for Meds: No Currently Unemployed: No Education: Associate Degree Difficulty w/ Childcare or Family Care: No Living arrangements: with family Additional living arrangements comments: lives with disabled Occupation/Education: retired Gender identity (if verbalized by the patient): Female Spiritual care concerns: No Meds Home Medications and Allergies Home Medications Medication Instructions Recorded Confirmed Type alprazolam 0.25 mg tablet 0.25 mg PO PRN anxiety 12/11/19 05/27/23 History atorvastatin 20 mg tablet 20 mg PO DAILY 12/11/19 05/27/23 History denosumab 60 mg/mL subcutaneous 60 mg subcut [id number] 12/29/19 05/27/23 History syringe (Prolia) escitalopram oxalate 10 mg tablet 5 mg PO DAILY 11/26/22 05/27/23 History aspirin 81 mg tablet 81 mg PO .qed 12/05/22 05/27/23 History tizanidine 4 mg capsule 4 mg PO TID PRN spasms #20 caps 03/05/23 05/27/23 Rx Pepcid AC 10 mg PO DAILY 03/27/23 05/27/23 History Allergies Allergy/AdvReac Type Severity Reaction Status Date / Time No Known Allergies Allergy Unknown Verified 05/27/23 09:40 Exam Const: General: alert Orientation/consciousness: patient oriented x3 Resp: Auscultation: clear to auscultation bilaterally Cardio: Rhythm: regular rhythm GI: GI Palp: Yes Soft to palpation and No Tenderness to palpation present (GI) Neuro: General: patient oriented x3 Assessment and Plan Assessment and plan (1) Chronic diarrhea: Code(s): K52.9 - Noninfective gastroenteritis and colitis, unspecified Status: Acute Assessment and Plan: Colonoscopy with possible biopsy or polypectomy or cautery or injection of substances.
== END 2023-05-27 11:43 | disposition home or self-care (01) ==
PROVIDERS: PCP Internal Medicine; Visit Provider Internal Medicine Gastroenterology
PROC: 0DJD8ZZ Inspection of Lower Intestinal Tract, Via Natural or Artificial Opening Endoscopic (ICD-10-PCS; CPT 45378; principal; 2023-05-27 11:00)
DX: K52.832 Lymphocytic colitis (principal); K57.30 Diverticulosis of large intestine without perforation or abscess without bleeding; E78.5 Hyperlipidemia, unspecified; Z79.82 Long term (current) use of aspirin
CPT/HCPCS: 45380; 88305; J2704; J7120

== ENCOUNTER 2023-10-26 08:37 | Emergency (ER) | payer MEDICARE, SELFPAY ==
--- NOTE | ~2023-10-26 | XR_ITS ---
EXAMINATION: XR chest 2V DATE: 10/26/2023 09:17 INDICATION: Productive cough TECHNIQUE: PA and lateral views of the chest were obtained. COMPARISON: Chest radiograph dated 09/10/2022 FINDINGS: Mild linear discoid atelectasis at the right costophrenic angle and at the left lower lung zone. No o ther airspace opacities, pulmonary edema, pleural effusion or pneumothorax. The cardiomediastinal sandra houette is normal. Mild lower thoracic levocurvature and mild kyphosis with chronic mild anterior com pression fracture of a lower thoracic vertebral body. Moderate thoracic spondylosis. IMPRESSION: 1. Minimal scattered discoid atelectasis in the bilateral lower lungs. No other acute cardiopulmonary disease. Reviewed, dictated and finalized at location A.
[2023-10-26 08:50] VITALS: BP 121/73; PULSE 72; RESP 16; TEMP 36.7; O2SAT 99
--- NOTE | 2023-10-26 08:54 | ED.URI ---
HPI - URI/Sore Throat General Chief Complaint: Upper Respiratory Infection Stated Complaint: COUGH/CONGESTION Time Seen by Provider: 10/26/23 08:54 Source: patient, RN notes reviewed and old records reviewed Mode of arrival: ambulatory Limitations: no limitations History of Present Illness HPI Narrative: patient presents today with complaints of productive cough for approximately 1 week. She denies any fever, chills, sweats. She denies any shortness of breath or wheezing. She is a nonsmoker. She voices no other concerns or complaints at this time. Related Data Home Medications Medication Instructions Recorded Confirmed alprazolam 0.25 mg tablet 0.25 mg PO PRN anxiety 12/11/19 10/26/23 atorvastatin 20 mg tablet 20 mg PO DAILY 12/11/19 10/26/23 denosumab 60 mg/mL subcutaneous 60 mg subcut [id number] 12/29/19 10/26/23 syringe (Prolia) escitalopram oxalate 10 mg tablet 5 mg PO DAILY 11/26/22 10/26/23 Pepcid AC 10 mg PO DAILY 03/27/23 10/26/23 multivitamin 1 tablet PO DAILY 10/26/23 10/26/23 Allergies Allergy/AdvReac Type Severity Reaction Status Date / Time No Known Allergies Allergy Unknown Verified 07/22/23 10:56 Review of Systems Review of Systems: All systems reviewed & are unremarkable except as noted in HPI and below Constitutional: Constitutional: Reports no additional constitutional complaints ENT: Reports system reviewed and no additional complaints, except as documented Cardiovascular: Cardiovascular: Reports no additional cardiovascular complaints Respiratory: Respiratory: Reports no additional respiratory complaints, Denies chest congestion, Reports cough, Reports excessive phlegm production and Denies wheezing Gastrointestinal: Gastrointestinal: Reports no additional gastrointestinal complaints [facility] Past Medical History Medical History EDER positive (~2019) History of anxiety History of hyperlipidemia Lymphocytic colitis Renal insufficiency Surgical History Surgical History History of bladder surgery Hx of breast reduction, elective Family History Family History Mother Hypertension Cancer Father Hypertension Grandparent Cancer Alzheimers disease Social History Social History (Reviewed 10/26/23 @ 09:09 by LEEANN Macario Social History: Caffeine- coffee/tea Smoking status: Never smoker Alcohol intake: current Drinks per week: 2 Alcohol use details: occasionally Substance use: never Substance use type: does not use Do You Feel Safe in your Home?: Yes Lack of Transportation: No Lack of Food: Never True Current Housing: I Have Housing Concerned About Future Housing: No Difficulty Paying Gas/Electric Bills: No Difficulty Paying for Meds: No Currently Unemployed: No Education: Associate Degree Difficulty w/ Childcare or Family Care: No Living arrangements: with family Additional living arrangements comments: lives with disabled Occupation/Education: retired Gender identity (if verbalized by the patient): Female Spiritual care concerns: No Comments At the time of my signature, I reviewed and agree with the nursing past medical, surgical, social, and family history. There is no relevant family history pertinent to the patient complaint. Exam Const: General: cooperative, no acute distress, alert and awake Orientation/consciousness: oriented to person, oriented to place and oriented to time HENMT: Head: normal to inspection Resp: Effort & Inspection: normal respiratory effort and able to speak in complete sentences Auscultation: clear to auscultation bilaterally, no crackles, no rales, no rhonchi and no wheezes Cardio: Palpation: normal PMI Rate: regular rate Rhythm: regular rhythm Heart sounds: S1 normal heart sound present and S2 normal heart
== END 2023-10-26 09:50 | disposition home or self-care (01) ==
PROVIDERS: Emergency Provider Nurse Practitioner Family; PCP Internal Medicine
DX: J18.9 Pneumonia, unspecified organism (principal); E78.5 Hyperlipidemia, unspecified; F41.9 Anxiety disorder, unspecified
CPT/HCPCS: 71046; 99213; G0463

== ENCOUNTER 2023-11-05 10:22 | Outpatient (CLI) | payer MEDICARE, SELFPAY ==
--- NOTE | ~2023-11-05 | XR_ITS ---
EXAMINATION: XR chest 2V 11/05/2023 10:35 INDICATION: Pneumonia PROCEDURE: 2 view chest COMPARISON: 10/26/2023 FINDINGS: The lungs are clear. The cardiomediastinal silhouette is within normal limits. There are no pleural effusions. There is no pneumothorax suspected. There is a hiatal hernia. There are multi ple wedge compression deformities which appear chronic in the lower thoracic and upper lumbar spine. IMPRESSION: 1: NO ACUTE CARDIOPULMONARY DISEASE. Reviewed, dictated and finalized at location B.
== END 2023-11-05 10:23 ==
LOC: GOSHIMG 10:24
PROVIDERS: PCP Internal Medicine; Visit Provider Internal Medicine
DX: J18.9 Pneumonia, unspecified organism (principal)
CPT/HCPCS: 71046

== ENCOUNTER 2023-12-05 07:28 | Outpatient (CLI) | payer MEDICARE, SELFPAY ==
--- NOTE | ~2023-12-05 | MM_ITS ---
EXAMINATION: MM screening ben BI w sharan HISTORY: Screening TECHNIQUE: Craniocaudal and mediolateral oblique 3-D tomosynthesis images were obtained and synthetic 2-D images were generated. CAD analysis was submitted and interpreted. COMPARISON: Comparison to multiple prior studies sequentially, with oldest reviewed study dated 05/25. BREAST PARENCHYMAL COMPOSITION: Not dense: There are scattered areas of fibroglandular density. FINDINGS: There are developing asymmetries in the upper outer quadrant of the right breast, middle th ird. Stable small bilateral benign-appearing breast masses. There are benign right breast calcificati ons. IMPRESSION: 1. Developing right breast focal asymmetry upper outer quadrant middle third. 2. Additional mammographic views and possible breast ultrasound are recommended. BI-RADS Category 0: Incomplete: Needs additional imaging evaluation. Reviewed, dictated and finalized at location B. IMPRESSION: 1. Developing right breast focal asymmetry upper outer quadrant middle third. 2. Additional mammographic views and possible breast ultrasound are recommended . BI-RADS Category 0: Incomplete: Needs additional imaging evaluation.
== END 2023-12-05 07:29 | disposition home or self-care (01) ==
PROVIDERS: PCP Internal Medicine; Visit Provider Obstetrics & Gynecology
DX: Z12.31 Encounter for screening mammogram for malignant neoplasm of breast (principal); R92.8 Other abnormal and inconclusive findings on diagnostic imaging of breast
CPT/HCPCS: 77063; 77067

== ENCOUNTER 2023-12-25 11:31 | Outpatient (CLI) | payer MEDICARE, SELFPAY ==
--- NOTE | ~2023-12-25 | MM_ITS ---
EXAMINATION: MM diagnostic ben RT w sharan HISTORY: Asymmetric density right breast TECHNIQUE: Additional 3-D tomosynthesis images of the right breast were performed and synthetic 2-D i mages were generated. CAD analysis was submitted and interpreted. COMPARISON: 12/05/2023, 6023, 07/12/2021, 05/31/2020 BREAST PARENCHYMAL COMPOSITION:Not Dense. There are scattered areas of fibroglandular density. FINDINGS: The area of asymmetry in the right breast effaces with spot compression. It is relatively s imilar to prior exams. No suspicious mass or distortion seen. No suspicious macrocalcification. IMPRESSION: No mammographic evidence for malignancy. BI-RADS Category 1: Negative Reviewed, dictated and finalized at location .
== END 2023-12-25 11:32 | disposition home or self-care (01) ==
PROVIDERS: PCP Internal Medicine; Visit Provider Obstetrics & Gynecology
DX: R92.8 Other abnormal and inconclusive findings on diagnostic imaging of breast (principal)
CPT/HCPCS: 77061; 77065; G0279

== ENCOUNTER 2024-03-30 09:12 | Outpatient (CLI) | payer MEDICARE, SELFPAY ==
--- NOTE | ~2024-03-30 | XR_ITS ---
XR_[id number]_CR Ordering provider: Arie Ramey, History: . Neck pain . Comparison: None. FINDINGS: VERTEBRAL BODIES: Normal height and alignment. No visible fracture or subluxation. The dens is intact . Degenerative changes of the spine. DISK SPACES: Narrowing of the disc C4-C5, C5-C6 and C6-C7. Multilevel uncovertebral joint osteoarthri tic changes. PARASPINOUS SOFT TISSUES: No prevertebral soft tissue swelling. IMPRESSION: No acute osseous abnormality cervical spine. Multilevel degenerative disc disease. Reviewed, dictated and finalized at location A. [employer]
--- NOTE | ~2024-03-30 | XR_ITS ---
XR shoulder RT min 2V Ordering provider: Arie Ramey, History: . R shoulder pain . Comparison: None. FINDINGS: BONES: Lucency in the midshaft of the clavicle which may indicate a fracture. Clinical correlation an d follow-up advised. JOINT SPACES: The acromioclavicular joint is normal. The glenohumeral joint is normal. SOFT TISSUES: Normal. IMPRESSION: Possible fracture in the midshaft of the clavicle. Follow-up advised. Reviewed, dictated and finalized at location A. [employer]TENA[employer]CE
== END 2024-03-30 09:13 | disposition home or self-care (01) ==
PROVIDERS: PCP Internal Medicine; Visit Provider Internal Medicine
DX: M50.321 Other cervical disc degeneration at C4-C5 level (principal); M50.322 Other cervical disc degeneration at C5-C6 level; M50.323 Other cervical disc degeneration at C6-C7 level; M25.511 Pain in right shoulder
CPT/HCPCS: 72040; 73030

== ENCOUNTER 2024-07-12 10:15 | Outpatient (RCR) | payer MEDICARE, SELFPAY ==
--- NOTE | 2024-06-17 11:16 | OPREHPOC ---
Outpatient Therapy Plan of Care This is a Multidisciplinary Plan of Care that may contain components documented by all disciplines (PT, OT, and ST.) PT Problem 1 PT Problem #1 Knowledge Deficit PT Goal 1 Goal / Goal Update 1. Pt to be IND with issued HEP. Target Visit 10 PT Problem 2 PT Problem #2 Pain PT Goal 1 Goal / Goal Update 1. pt to report back/neck pain no greater than 3/ 10 in the last week 2. pt to decline radicular symptoms in the last week 3. pt to be able to sleep through the night without being woken d/t pain. Target Visit 10 PT Problem 3 PT Problem #3 Impaired Strength PT Goal 1 Goal / Goal Update 1. Pt to improve josé shoulder strength to 4/5 globally 2. Pt to be able to lift 5lb overhead Target Visit 10
--- NOTE | 2024-06-17 11:16 | PTOPEVAL1 ---
Assessment and note entered by Dee Freire, PT, DPT Evaluation Information Assessment Status Evaluation Diagnosis neck pain ICD-10 Condition Codes (PT) Cervicalgia M54.2,Radiculopathy, cervical M54.13, Pain in right shoulder M25.511 Subjective Information Pt reports upper back pain with josé radicular symptoms. Imaging shows narrowing of the discs at C3-C7. Pt complains of upper back pain, across her shoulder blades, and into her shoulders. She states this pain has been going on for 6 months, states it is worse at night, she sleeps on her side. Reports frequency L sided tingling down to the wrist, with intermittent R sided symptoms down to the elbow. She also has DDD of the lumbar spine, for this she sees pain management. Reported Pain Level Pain Score 2: Self Report Assessment PT Clinical Summary Pt presents to therapy today for her initial evaluation with a diagnosis of cervical spondylosis. She demonstrates symptoms consistent with this, as well as other symptoms likely d/t her postural asymmetry and potential R shoulder tendonitis. She demonstrates limited cervical ROM, decreased thoracic mobility, postural asymmetries , R shoulder weakness, and L sided radicular symptoms. Skilled therapy services are indicated to address the deficits noted above, to manage pain, and to improve functional mobility. Plan of Care Interventions Electrical Stimulation,Gait Training,Hot Pack/Cold Pack,Manual Therapy,Mechanical Traction,Neuro Re- education,Patient/Caregiver Education,Therapeutic Activities,Therapeutic Exercise PT Services Indicated Yes Treatment Frequency and 2x/wk for 10 visits Duration These treatments will address the objective and functional deficits as defined above. The patient will be advanced safely and appropriately in order for the patient to progress towards his/her prior level of function. Additional exercises will be introduced and as well as a comprehensive home exercise program upon discharge, if needed, ?to ensure carryover of functional gains achieved in the clinic. This treatment plan has been reviewed and agreement upon by the patient.
--- NOTE | 2024-07-12 11:18 | OPREHPOC ---
Outpatient Therapy Plan of Care This is a Multidisciplinary Plan of Care that may contain components documented by all disciplines (PT, OT, and ST.) PT Problem 1 PT Problem #1 Knowledge Deficit PT Goal 1 Goal / Goal Update 1. Pt to be IND with issued HEP. Target Visit 10 Progress Met PT Problem 2 PT Problem #2 Pain PT Goal 1 Goal / Goal Update 1. pt to report back/neck pain no greater than 3/ 10 in the last week 2. pt to decline radicular symptoms in the last week 3. pt to be able to sleep through the night without being woken d/t pain. 07/12/24: 1-3. not met Target Visit 10 PT Problem 3 PT Problem #3 Impaired Strength PT Goal 1 Goal / Goal Update 1. Pt to improve josé shoulder strength to 4/5 globally 2. Pt to be able to lift 5lb overhead 07/07/24: 1. progressing Target Visit 10
--- NOTE | 2024-07-12 11:19 | PTOPDC ---
Assessment and note entered by Dee Freire, PT, DPT Evaluation Information Assessment Status Discharge Diagnosis neck pain ICD-10 Condition Codes (PT) Cervicalgia M54.2,Radiculopathy, cervical M54.13, Pain in right shoulder M25.511 Subjective Information Pt states she feels like she is getting better overall. States she did some raking last week and was pretty sore from that. States even with some prolonged standing yesterday, her back and shoulders hurt today, and are still tingling. Declines pain currently but reports L hand tingling. Reported Pain Level Pain Score 0: Self Report Assessment PT Clinical Summary Pt presents to therapy today for her progress report following 9 visits of skilled therapy to treat her diagnosis of cervical spondylosis. She demonstrates demonstrates improved postural awareness, improved cervical and shoulder ROM, and improved pain reports. Her radicular symptoms have improved as well. She reports independence with her HEP and plans to continue this on her own for now. Plan of Care PT Services Indicated No
== END 2024-07-12 12:23 | disposition home or self-care (01) ==
LOC: ANHGOSHPT 10:15
PROVIDERS: PCP Nurse Practitioner Adult Health; Visit Provider Nurse Practitioner Adult Health
DX: M47.812 Spondylosis without myelopathy or radiculopathy, cervical region (principal)
CPT/HCPCS: 97110; 97140; 97161; 97530

== ENCOUNTER 2024-08-06 06:34 | Outpatient (CLI) | payer MEDICARE, SELFPAY ==
--- NOTE | ~2024-08-06 | MR_ITS ---
MRI of the cervical spine Clinical History: Spondylosis Technique: Axial T2-weighted and gradient images, and sagittal T1-weighted, T2-weighted, and STIR wanda ges were acquired. Findings: No acute fracture seen. There is 3 mm anterolisthesis of C5 over C6. No suspicious bone mar row signal abnormality seen. At C2-C3, there is no significant disc bulge or herniation. No spinal canal stenosis, cord compressio n, or neural foraminal narrowing. At C3-C4, there is no significant disc bulge or herniation. There is mild bilateral facet arthropathy . No spinal canal stenosis, cord compression, or left neural foraminal narrowing. Probable minimal ri ght neural foraminal narrowing. At C4-C5, there is mild degenerative disc narrowing without significant disc bulge or herniation. The re is bilateral facet hypertrophy with mild bilateral neural foraminal narrowing. No canal stenosis o r cord compression. At C5-C6, there is mild disc osteophyte complex. There is bilateral facet arthropathy. There is sever e right neural foraminal narrowing. Left neural foramen preserved. No canal stenosis or cord compress ion. At C6-C7, there is mild disc osteophyte complex. There is probable right neural foraminal narrowing. Left neural foramen preserved. No canal stenosis or cord compression. No abnormal signal seen in the spinal cord. Paravertebral soft tissues are unremarkable. Impression: Mild degenerative spondylosis overall, as above. Reviewed, dictated and finalized at [facility]. Impression: Mild degenerative spondylosis overall, as above.
--- OUTSIDE RECORDS SUMMARY | 2024-08-06 06:36 | XMS_ITS | Clinical Summary ---
Author Organization [facility] Address [address] [place] [address] Phone Care Team Providers Care Business Development Name Role Phone Arie Ramey MD Primary Care Provider [phone] Allergies Active Allergy Reactions Criticality Noted Date Comments Other 02/02/2020 Prochlorperazine 11/10/2019 Other reaction(s): Unknown Medications ALPRAZolam (XANAX) 0.25 MG tablet TK 1 T PO BID PRN 01/25/2020 Active atorvastatin (LIPITOR) 20 MG tablet TK 1 T PO QD 11/11/2019 Active Denosumab (Prolia) 60 MG/ML solution prefilled syringe 1 mL Active ergocalciferol (VITAMIN D2) 1.25 MG (11130 UT) capsule TK 1 C PO Q OTHER WK 11/29/2019 Active fexofenadine (NOVA) 180 MG tablet Take 180 mg by mouth 1 (one) time each day Active pseudoephedrine (SUDAFED) 30 MG tablet Take 30 mg by mouth every 4 (four) hours if needed Active famotidine (PEPCID) 10 MG tablet Take by mouth Active butalbital-acet aminophen-caffe ine 50-300-40 MG capsule butalbital-a cetaminophen -caffeine 50 mg-300 mg-40 mg capsule TAKE 1 CAPSULE BY MOUTH THREE TIMES DAILY NEEDED FOR PAIN Active aspirin (ST VERN) 81 MG EC tablet Take 81 mg by mouth 1 (one) time each day Active escitalopram (LEXAPRO) 10 MG tablet Take 10 mg by mouth 1 (one) time each day Active Active Problems Problem Noted Date Diagnosed Date Microscopic hematuria 03/01/2020 Overview (04/27/2020): Added automatically from request for surgery [id number] Vitamin D deficiency 01/28/2020 Pure hypercholesterolemia 01/28/2020 Gastroesophageal reflux disease 01/28/2020 Stage 3b chronic kidney disease 01/28/2020 Osteoarthritis 07/12/2018 Immunizations Immunization Administration Dates Next Due Fluzone High-Dose 12/31/2019 Influenza (IM) Preservative Free 02/08/2014,01/13 Influenza Split High Dose Pr eservative Free IM 01/21/2021,12/31/2019,12/31/2019,01/11,01/11/2019,01/19/2018,01/19/2018 ,01/21/2017,01/21/2017,01/25/2016,01/12,01/27/2015,01/27/2015 Influenza TIV (IM) 02/05/2021 Pfizer Sars-cov-2 Vaccination 02/21/2021, 021,06/11/2020 Pneumococcal Conjugate 13-Valent 10/21/2017,10/12 Pneumococcal Polysaccharide 11/02/2019 Pneumococcal, Unspecified 11/02/2019 Zoster 09/30/2012,09/30/2012 Zoster Recombinant 12/29/2018, 9,10/13/2018,10/13 Family History Medical History Relation Comments Hyponatremia Neg Hx Kidney disease Neg Hx Social History Tobacco Use Types Packs/Day Years Used Date Smoking Tobacco: Never Smokeless Tobacco: Never Alcohol Use Standard Drinks/Week Comments Yes 0 (1 standard drink = 0.6 oz pur e alcohol) rare Comments Unknown Sex and Gender Information Value Date Recorded Sex Assigned at Female 03/07/2021 6:43 AM MST Legal Sex Female 8:06 AM MDT Gender Identity Female 03/07/2021 6:43 AM [facility] Sexual Orientation Straight 03/07/2021 6: 43 AM [facility] Last Filed Vital Signs Vital Sign Reading Time Taken Comments Blood Pressure 112/70 11/14/2021 3:13 PM CDT Pulse 72 11/14/2021 3:13 PM CDT Temperature 35.8 C (96.5 F) 11/14/2021 3:13 PM CDT Respiratory Rate - - Oxygen Saturation - - Inhaled Oxygen Concentration - - Weight 70.8 kg (156 lb) 11/14/2021 3:13 PM CDT Height 162.6 cm (5' 4 ) 11/14/2021 3:13 PM CDT Body Mass Index 26.78 11/14/2021 3:13 PM CDT Plan of Treatment Health Maintenance Due Date Last Done Comments COVID-19 Vaccine ( season) 2023 02/21/2021, 07/02/2020, 06/11/2020 Influenza Vaccine (Season Ended) 2024 02/05/2021, 02/08/2014, 02/08/2014 Pneumococcal PPSV23/PCV13 65 + Years / Low and Medium Risk Completed 11/02/2019, 10/21/2017, 10/21/2017 Insurance [employer] Care Teams Business Development Relationship Specialty Start Date End Date Arie Ramey MD [address] [address] PCP - General Family Medicine 12/22/19
--- OUTSIDE RECORDS SUMMARY | 2024-08-06 06:36 | XMS_ITS | Encounter Summary ---
Author Organization [facility] Address [address] [place] [address] Care Team Providers Care Assessment Coordinator Name Role Phone Arie Ramey MD Primary Care Provider [phone] Encounter Details Date Type Department Care Team (Latest Contact Info) Description 07/15/2005 Outpatient Historical [facility] Chas Robin MD [address] [facility] [address] [place] [phone] Other Screening Mammogram (Primary Dx) Social History Tobacco Use Types Packs/Day Years Used Date Smoking Tobacco: Never Assessed Comments Unknown Sex and Gender Information Value Date Recorded Sex Assigned at Not on file Legal Sex Female 4:57 AM [employer] OPER[employer] Gender Identity Not on file Sexual Orientation Not on file documented as of this encounter Plan of Treatment Not on file documented as of this encounter Visit Diagnoses Diagnosis Other screening mammogram- Primary documented in this encounter Care Teams Assessment Coordinator Relationship Specialty Start Date End Date Arie Ramey MD [address] [place] [address] PCP - General 05/24/02 documented as of this encounter
--- OUTSIDE RECORDS SUMMARY | 2024-08-06 06:36 | XMS_ITS | Encounter Summary ---
Author Organization [facility] Address [address] [place] [address] Care Team Providers Care Clinic Office Manager Name Role Phone Arie Ramey MD Primary Care Provider [phone] Encounter Details Date Type Department Care Team (Latest Contact Info) Description 09/07/2008 Outpatient Historical [facility] Maria C Domínguez MD [address] [facility] [address] [place] [address] Other Screening Mammogram Social History Tobacco Use Types Packs/Day Years Used Date Smoking Tobacco: Never Assessed Comments Unknown Sex and Gender Information Value Date Recorded Sex Assigned at Not on file Legal 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 [place], [place] [address] Admit Date: 09/07/2008 LUCIA BLAS Sex: F Admit Prov: MARIA C DOMÍNGUEZ Date: 1950 Primary Care Prov: ARIE RAMEY CMRN: [id number] [id number] [facility] Ordering Prov: MARIA C DOMÍNGUEZ Accession Number: [id number] Interpretation BILATERAL FULL FIELD DIGITAL SCREENING MAMMOGRAM WITH CAD. Date: 09/07/2008 History: Routine Screening. Technique: Full field digital craniocaudal and mediolateral oblique projections of both breasts were obtained. Computer aided diagnosis was performed. Comparison: August 2007 and July 2006. Breast Parenchymal Composition: Scattered fibroglandular densities. Findings: No suspicious mass, suspicious microcalcifications, or architectural distortion in either breast is identified. Since the prior study, there has been no significant interval change. The computer aided diagnosis detects no significant abnormality. Overall Assessment: BI-RADS category 1: Negative. Recommendation: Annual mammography is recommended. This exam was reviewed with Dr. Cassandra Tavarez. Dictated by Beka Stanley MD. Assessment BIRADS: 1-Negative Recommendation: Normal interval follow-up Dictated by: CASSANDRA TAVAREZ Electronically signed by: CASSANDRA TAVAREZ 09/12/2008 08:12 Transcribed: 09/09/2008 23:54 SDJ Procedure Note Cassandra Tavarez - 09/12/2008 [place] [place], [place] [address] Admit Date: 09/07/2008 LUCIA BLAS Sex: F Admit Prov: MARIA C DOMÍNGUEZ Date: 1950 Primary Care Prov: ARIE RAMEY CMRN: [id number] [phone] [facility] Ordering Prov: MARIA C DOMÍNGUEZ Interpretation BILATERAL FULL FIELD DIGITAL SCREENING MAMMOGRAM WITH CAD. Date: 09/07/2008 History: Routine Screening. Technique: Full field digital craniocaudal and mediolateral oblique projections of both breasts were obtained. Computer aided diagnosiswas performed. Comparison: August 2007 and July 2006. Breast Parenchymal Composition: Scattered fibroglandular densities. Findings: No suspicious mass, suspicious microcalcifications, or architectural distortion in either breast is identified. Since theprior study, there has been no significant interval change. The computeraided diagnosis detects no significant abnormality. Overall Assessment: BI-RADS category 1: Negative. Recommendation: Annual mammography is recommended. This exam was reviewed with Dr. Cassandra Tavarez. Dictated by MD Zeenat. Assessment BIRADS: 1-Negative Recommendation: Normal interval follow-up Dictated by: CASSANDRA TAVAREZ Electronically signed by: CASSANDRA TAVAREZ 09/12/2008 08:12 Transcribed: 09/09/2008 23:54 SDJ Maria C Domínguez MD MAMMO ORDERABLES Final Result documented in this encounter Visit Diagnoses Diagnosis Other screening mammogram documented in this encounter Care Teams Clinic Office Manager Relationship Specialty Start Date End Date Arie Ramey MD [address] [place] [address] PCP - General 05/24/02 documented as of this encounter
--- OUTSIDE RECORDS SUMMARY | 2024-08-06 06:36 | XMS_ITS | Encounter Summary ---
Author Organization [facility] Address [address] [place] [address] Care Team Providers Care Sales Floor Manager Name Role Phone Arie Ramey MD Primary Care Provider [phone] Encounter Details Date Type Department Care Team (Latest Contact Info) Description 09/09/2007 Outpatient Historical HIS IMG-[facility] Maria C Domínguez MD [address] [facility] [address] [place] [address] Other Screening Mammogram Social History Tobacco Use Types Packs/Day Years Used Date Smoking Tobacco: Never Assessed Comments Unknown Sex and Gender Information Value Date Recorded Sex Assigned at Not on file 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 [place], [place] [address] Admit Date: 09/09/2007 LUCIA BLAS Sex: F Admit Prov: MARIA C DOMÍNGUEZ Date: 1950 Primary Care Prov: ARIE RAMEY CMRN: [id number] [id number] Ordering Prov: MARIA C DOMÍNGUEZ Accession Number: [id number] Interpretation DIGITAL SCREENING MAMMOGRAM WITH COMPUTER ASSISTED DIAGNOSIS FINDINGS The breasts were imaged with digital mammographic technique. The parenchyma is moderately dense. There is no mass, malignant calcification, lymphadenopathy or other sign of malignancy. There has been no significant change since 07/18. The CAD system does not highlight any suspicious areas. CONCLUSION No mammographic evidence of malignancy. Assessment BIRADS: 1-Negative Recommendation: Normal interval follow-up Dictated by: BROCK SUGGS Electronically signed by: BROCK SUGGS 09/10/2007 09:42 Transcribed: 09/10/2007 09:42 [facility] Procedure Note Provider, Historical - 09/10/[address] [address] Admit Date: 09/09/2007 TREVNIJAYNA ELYLB Lema Sex: F Admit Prov: MARIA C DOMÍNGUEZ Date: 1950 Primary Care Prov: ARIE RAMEY CMRN: [id number] [id number] [facility] Ordering Prov: MARIA C DOMÍNGUEZ Interpretation DIGITAL SCREENING MAMMOGRAM WITH COMPUTER ASSISTED DIAGNOSIS FINDINGS The breasts were imaged with digital mammographic technique. Theparenchyma is moderately dense. There is no mass, malignant calcification, lymphadenopathy or other sign of malignancy. There has been nosignificant change since 07/18. The CAD system does not highlight any suspicious areas. CONCLUSION No mammographic evidence of malignancy. Assessment BIRADS: 1-Negative Recommendation: Normal interval follow-up Dictated by: BROCK SUGGS Electronically signed by: BROCK SUGGS 09/10/2007 09:42 Transcribed: 09/10/2007 09:42 [facility] Maria C Domínguez MD MAMMO ORDERABLES Final Result documented in this encounter Visit Diagnoses Diagnosis Other screening mammogram documented in this encounter Care Teams Sales Floor Manager Relationship Specialty Start Date End Date Arie Ramey MD [address] [place] [address] PCP - General 05/24/02 documented as of this encounter
--- OUTSIDE RECORDS SUMMARY | 2024-08-06 06:36 | XMS_ITS | Encounter Summary ---
Author Organization [facility] Address [address] [place] [address] Care Team Providers Care Equipment Detailer Name Role Phone Arie Ramey MD Primary Care Provider [phone] Encounter Details Date Type Department Care Team (Latest Contact Info) Description 08/04/2006 Outpatient Historical HIS IMG-LAB [facility] Chas Robin MD [address] [facility] [address] [place] [id number] Other Screening Mammogram (Primary Dx) Social History Tobacco Use Types Packs/Day Years Used Date Smoking Tobacco: Never Assessed Comments Unknown Sex and Gender Information Value Date Recorded Sex Assigned at Not on file 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
--- OUTSIDE RECORDS SUMMARY | 2024-08-06 06:37 | XMS_ITS | CONTINUITY OF CARE DOCUMENT ---
Author Name sarah smith Address Unknown Organization [facility] Address [id number] [place] [address] [address] [place] [address] Phone [phone] Care Team Providers Care Siderographer Name Role Phone sarah smith Unavailable Unavailable INSURANCE PROVIDERS Payer name Policy type / Coverage type [place] red democrat ID [facility] [id number]
--- OUTSIDE RECORDS SUMMARY | 2024-08-06 06:37 | XMS_ITS | Data Portability ---
Author [facility] Address [address] [place] [address] Care Team Providers Care Silk Screener Name Role Phone ROBERT RAMEY Primary Care Provider ROSANA HAND Fixed Route Bus Operator [facility] Pain Management Assessment Encounter Date Assessment Date Assessment LastModified by Organization Details LastModified Time 07/28/2023 07/28/2023 Up-to-date on immunizations and screenings for chronic medical problems have been discussed in detail and the management of them has been discussed as well all questions have been answered she will follow-up with me in 4 months. [email or web address] Not available 07/28/2023 13:45:57 10/30/2023 10/30/2023 chest x-ray follow up for pneumonia we will get that done a couple of weeks. She will keep her regular follow up unless she develops problems [email or web address] Not available 11/15/2023 13:09:18 12/01/2023 12/01/2023 pneumonia has resolved other medical problems have been discussed we will see her back in about 3 or 4 months continue current therapy mammograms ordered by metalizer [email or web address] Not available 12/06/2023 14:46:02 12/25/2023 12/25/2023 assessments and immunizations and screenings discussed all questions answered ordered screenings and immunizations were appropriate and patient agreeable [email or web address] Not available 12/27/2023 14:43:14 03/29/2024 03/29/2024 x-ray cervical spine x-ray right shoulder healthy lifestyle care instructions other medicines we will continue we will start the taper her generic Lexapro she will drop 1 day a week every week until she is done she has blood work coming up with her kidney doctor in about a week so she wants to hold off on getting anything that I will order until then she will see me back in 3-4 months she has a local chiropractor she wants to see for her neck and for her shoulder I told her that is okay but no rapid movements of the neck [email or web address] Not available 03/29/2024 23:23:56 Plan of Treatment Reminders Order Date Submit Date Provider Last Modified By Organization Details Last Modified Time Details Appointments ANY 15 2024 09:15A M Robert Ramey MD Not available Not available Not available Lab None recorded. Referral None recorded. Procedures None recorded. Surgeries None recorded. Imaging XR, cervical spine 2023 [facility], [address], [place], [address], 03/30/2024 13:16:37 XR, shoulder 2023 024 [facility], [address], [place], [address], 03/30/2024 13:06:24 XR, chest 2023 024 [facility] Not available 11/05/2023 14:28:05 Medication Orders None recorded. Patient TargetsNo targets recorded. Patient Instructions Encounter Date Encounter Id Patient Instructions Last Modified By Organization Details Last Modified Time 12/25/2023 [id number] Medicare Well[employer] [facility] Preventive Checklist [email or web address] Not available 12/25/2023 11:56:18 03/29/2024 [id number] A healthy lifestyle: care instructions [email or web address] Not available 03/29/2024 17:52:57 Reason for Referral None Reported. Results Created Date Observation Date Name Description Value Unit Range Abnormal Flag Note LastModifiedBy Organization Detail LastModifiedTime 10/26/1910/26/2023 XR, chest , 2 view No observ ation record ed. [facility] [address], [place], [address], 10/29/2023 12:42:51 11/05/19 24 11/05/2023 XR, chest No observ ation record ed. [facility] [address], [place], [address], 11/13/2023 16:35:07 12/05/19 24 12/05/2023 MAMMO , scree arina, digit al, bilat eral No observ ation record ed. [facility] [address], [place], [address], 12/11/2023 15:22:12 12/23/19 24 09/06/2022 bone densi ty No observ ation record ed. Not Available 2023 12:56:06 12/25/19 24 12/25/2023 MAMMO , diagn ostic , tomos ynthe sis, unila teral No observ ation record ed. [email or web address] [facility] [address], [place], [address], 12/28/2023 22:01:26 03/30/20 24 03/30/2024 XR, shoul kimberly No observ ation record ed. [facility] [address], [place], [address], 04/13/2024 10:34:03 03/30/20 24 03/30/2024 XR, cervi albertina spine No observ ation record ed. [facility] [address], [place], [address], 04/13/2024 10:34:04 03/30/20 24 03/30/2024 XR, shoul kimberly No observ ation record ed. [facility] [address], [place], [address], 03/31/2024 14:42:36 03/31/20 XR, cervi albertina spine No observ ation record ed. [facility] [address], [place], [address], 03/31/2024 14:42:35 Result Notes None recorded. Problems Name Problem SNOMED Code Status Onset Date Resolution Date Notes Provider Name and Address Organization Details Recorded Time Pneumonia 321501013 Active 2023 Jaycee Castellanos [place] null, [place] - [facility] 4 10:51:22 Gastroesophage al reflux disease without esophagitis 360717563 Active 2023 Jaycee Castellanos [place] [facility] 4 10:52:13 Anxiety 89966649 Active 2023 Jaycee Castell[place] [facility] 4 10:52:19 Hyperlipidemia 00117329 Active 2023 Jaycee Castell[place] [facility] 4 10:52:24 Osteoporosis 33847789 Active 2023 Jaycee Castell[place] [facility] 4 10:52:29 Chronic kidney disease stage 2 283570774 Active 2023 Jaycee Castell[place] [facility] 4 10:52:43 Microscopic colitis 314670486 Active 2023 Jaycee Castellanos [place] [facility] 4 10:53:02 Problem Notes None recorded. Procedures Surgical History Date Name Laterality Status Provider Name and Address Organization Details Recorded Time Eye Surgery completed LUCINA Law - [facility] 07/28/2023 11:20:30 Tonsillectomy completed LUCINA Law - [facility] 07/28/2023 11:20:41 Breast reduction completed LUCINA Law - [facility] 07/28/2023 11:20:52 Imaging Results Imaging Date Name Status LastModified by Organiz ation Details LastModified Time 10/26/2023 XR, chest, 2 view completed [facility] [address], [place], [address], 10/29/2023 12:42:51 11/05/2023 XR, chest completed [facility] [address], [place], [address], 11/13/2023 16:35:07 12/05/2023 MAMMO, screening, digital, bilateral completed [address], [place], [address], 12/11/2023 15:22:12 09/06/2022 bone density completed [facility] Information not available 12/23/2023 12:56:06 12/25/2023 MAMMO, diagnostic, tomosynthesis, unilateral completed [place] [address] [facility] [address] [address], [place], [address], 12/28/2023 22:01:26 03/30/2024 XR, shoulder completed [facility] [address], [place], [address], 04/13/2024 10:34:03 03/30/2024 XR, cervical spine completed [facility] [address], [place], [address], 04/13/2024 10:34:04 03/30/2024 XR, shoulder completed [facility] [address], [place], [address], 03/31/2024 14:42:36 03/31/2024 XR, cervical spine completed [facility] [address], [place], [address], 03/31/2024 14:42:35 Procedure Notes None recorded. Medical Equipment None Reported. Allergies Allergen ID Allergen Name Allergen Category Reaction Reaction Severity Criticality Documentation Date Start Date Code Code System Note Provider Name and Address Organization Details Recorded Time 599620 ragweed pollen environme nt other Not available Not available 07/28/2023 00564 UNK runny nose, sneez ing Sirisha ortiz [place] - [facility] 11:41:36 Medications Name Sig Start Date Stop Date Status Note LastModified by Organization Details LastModified Time atorvastat in 20 mg tablet TAKE 1 TABLET BY MOUTH DAILY 2024 active Not Available Not Available Not Avai lable fluconazol e 150 mg tablet TAKE 1 TABLET BY MOUTH DAILY active Not Available Not Available No t Available sulfametho xazole 800 mg-trimeth oprim 160 mg tablet TAKE 1 TABLET BY MOUTH TWICE DAILY active Not Available Not Available No t Available alprazolam 0.25 mg tablet TAKE 1 TABLET BY MOUTH DAILY 2024 active Not Available Not Available Not Avai lable ergocalcif francisco (vitamin D2) 1,250 mcg (50,000 unit) capsule TAKE 1 CAPSULE BY MOUTH EVERY OTHER WEEK 07/27 completed Not Available Not Available Not Available budesonide DR - ER 3 mg capsule,de layed,exte nded release TAKE 3 CAPSULES BY MOUTH DAILY 11/30 completed Not Available Not Available Not Available estradiol 0.01% (0.1 mg/gram) vaginal cream INSERT 1 GRAM VAGINALL Y 2 NIGHTS PER WEEK active Not Available Not Available No t Available albuterol sulfate HFA 90 mcg/actuat ion aerosol inhaler INHALE 2 PUFFS BY MOUTH FOUR TIMES DAILY NEEDED FOR SHORTNES S OF BREATH OR WHEEZING 12/24 completed Per patient , no longer needed Not Available Not Available Not Available cefdinir 300 mg capsule TAKE 1 CAPSULE BY MOUTH EVERY 12 HOURS 12/24 completed Not Available Not Available Not Available escitalopr am 10 mg tablet TAKE 1 TABLET BY MOUTH EVERY DAY 07/27 completed Not Available Not Available Not Available Pepcid AC 20 mg tablet Take 1 tablet every day by oral route. active Not Available Not Available No t Available escitalopr am 5 mg tablet TAKE 1 TABLET BY MOUTH EVERY DAY 2024 active Not Available Not Available Not Avai lable nitrofuran toin monohydrat e/macrocry stals 100 mg capsule TAKE 1 CAPSULE BY MOUTH TWICE DAILY active Not Available Not Available No t Available tizanidine 4 mg capsule TAKE 1 CAPSULE BY MOUTH THREE TIMES DAILY NEEDED FOR SPASMS 07/27 completed Not Available Not Available Not Available butalbital -acetamino phen-caffe ine 50 mg-300 mg-40 mg capsule TAKE 1 CAPSULE BY MOUTH THREE TIMES DAILY NEEDED FOR PAIN 10/29 completed Not Available Not Available Not Available Prolia 60 mg/mL subcutaneo us syringe Inject 1mL under the skin every six months as directed for osteopor osis active Not Available Not Available No t Available Vitals Date Recorded Body weight Body mass index (BMI) Body height Heart rate Oxygen saturation Oxygen saturation in Arterial blood by Pulse oximetry Systolic blood pressure Diastolic blood pressure Provider Name and Address Organization Details Last Updated DateTime 4 54910.3 4 g 23.9 kg/m2 162.56 cm 63 /min 99 % 99 % 114 mm[Hg] 80 mm[Hg] Kiki Orozco MA [facility] 4 11:27:59 Date Recorded Body height Body mass index (BMI) Body weight Heart rate Oxygen saturation Oxygen saturation in Arterial blood by Pulse oximetry Systolic blood pressure Diastolic blood pressure Provider Name and Address Organization Details Last Updated DateTime 4 162.56 cm 24.2 kg/m2 66359.5 2 g 67 /min 96 % 96 % 118 mm[Hg] 82 mm[Hg] Kiki Orozco MA [facility] 4 10:24:41 Date Recorded Body height Body mass index (BMI) Body weight Heart rate Oxygen saturation Oxygen saturation in Arterial blood by Pulse oximetry Systolic blood pressure Diastolic blood pressure Provider Name and Address Organization Details Last Updated DateTime 4 162.56 cm 24.2 kg/m2 27651.5 2 g 62 /min 99 % 99 % 118 mm[Hg] 76 mm[Hg] Kristel Lopez MA [facility] 4 11:00:48 Date Recorded Body height Heart rate Oxygen saturation Oxygen saturation in Arterial blood by Pulse oximetry Body mass index (BMI) Body weight Systolic blood pressure Diastolic blood pressure Provider Name and Address Organization Details Last Updated DateTime 4 162.56 cm 71 /min 99 % 99 % 24.5 kg/m2 33953.9 9 g 132 mm[Hg] 66 mm[Hg] Rajwinder Vasques MA [facility] 4 11:37:07 Date Recorded Pain severity - 0-10 verbal numeric rating [Score] - Reported Provider Name and Address Organization Details Last Updated DateTime 12/25/2023 0 Sirisha Sesay [facility] 12/25/2023 11:39:59 Date Recorded Body height Body mass index (BMI) Body weight Heart rate Oxygen saturation Oxygen saturation in Arterial blood by Pulse oximetry Systolic blood pressure Diastolic blood pressure Provider Name and Address Organization Details Last Updated DateTime 162.56 cm 25 kg/m2 80157.4 1 g 74 /min 95 % 95 % 118 mm[Hg] 62 mm[Hg] Rajwinder Vasques MA [facility] 11:11:07 Social History Question Answer Notes LastModified by Organizat ion Details LastModified Time Tobacco Smoking Status Never Smoker Kiki Orozco MA null, [place] - [facility] 07/28/2023 11:19:17 Do You Have An Advance Directive? Yes Information not available 07/28/2023 What Is Your Level Of Alcohol Consumption? Occasional Information not available 07/28/2023 Are You Blind Or Do You Have Difficulty Seeing? No Information not available 07/28/2023 What Is Your Level Of Caffeine Consumption? Occasional Information not available 12/25/2023 In The 14 Days Before Symptom Onset, Have You Had Close Contact With A Laboratory-confir med COVID-19 While That Case Was Ill? No Information not available 03/29/2024 In The 14 Days Before Symptom Onset, Have You Had Close Contact With A Person Who Is Under Investigation For COVID-19 While That Person Was Ill? No Information not available 03/29/2024 Have You Been To An Area Known To Be High Risk For COVID-19? No Information not available 03/29/2024 Are You Currently Employed? No Retired Information not available 07/28/2023 Are You Deaf Or Do You Have Serious Difficulty Hearing? No Information not available 07/28/2023 What Type Of Diet Are You Following? REGULAR Information not available 07/28/2023 What Is The Highest Grade Or Level Of School You Have Completed Or The Highest Degree You Have Received? [id number] Information not available 12/25/2023 Are There Any Guns Present In Your Home? No Information not available 12/25/2023 In The Past 7 Days, How Many Days Did You Exercise? 0 Information not available 12/25/2023 In The Past 7 Days, How Much Pain Have You [place]? Some Information not available 12/25/2023 In General, Would You Say You Health Is: Very Good Information not available 12/25/2023 How Would You Describe The Condition Of Your Mouth And Teeth- Including False Teeth Or Dentures? Very Good Information not available 12/25/2023 Each Night, How Many Hours Of Sleep Do You Get? 7 Information no t available 12/25/2023 Has Anyone Ever Told You That You Snore? No Information not available 12/25/2023 In The Past 7 Days, How Often Have You [place] Sleepy In The Daytime? Rarely Information not available 12/25/2023 # Alcohol Drinks Per Week 0 Information not available 12/25/2023 What Was The Date Of Your Most Recent Tobacco Screening? 03/29/2024 Information not available 03/29/2024 What Is Your Relationship Status? Information not available 07/28/2023 Do You Use Your Seat Belt Or Car Seat Routinely? Yes Information not available 07/28/2023 Do You Have Smoke And Carbon Monoxide Detectors In Your Home? Yes Information not available 07/28/2023 Do You Feel Stressed (tense, Restless, Nervous, Or Anxious, Or Unable To Sleep At Night)? [id number] Information not available 10/30/2023 Do You Use Any Illicit Or Recreational Drugs? No Information not available 07/28/2023 Do You Use Sunscreen Routinely? Yes Information not available 07/28/2023 Has Tobacco Cessation Counseling Been Provided? No Information not available 07/28/2023 Do You Or Have You Ever Used Any Other Forms Of Tobacco Or Nicotine? No Information not available 07/28/2023 Sex: Female Functional Status Question Answer Note LastModified by Organizat ion Details LastModified Time Are you able to care for yourself? Yes Information not available 07/28/2023 What is your exercise level? Occasional Information not available 12/25/2023 Mental Status None recorded. Family History Relationship Description Onset Age of this Age Resolved Age Notes LastModified by Organization Details LastModified Time Father Cerebrovascu lar accident bandersonma Not available 0 07/28/2023 11:18:38 Father Hypercholest erolemia bandersonma Not available 07/13 11:18:46 Father Hypertensive disorder bandersonma Not available 07/13 11:18:54 Mother Hypercholest erolemia bandersonma Not available 07/13 11:18:46 Mother Hypertensive disorder bandersonma Not available 07/13 11:18:54 Maternal Grandmother Alzheimer's disease Not available 2023 11:49:48 Maternal Aunt Alzheimer's disease Not available 2023 11:49:48 Medical History Condition Response Coronary Artery Disease N Other N High Blood Pressure Y Atrial Fibrillation N Kidney or Bladder Problems Y Thyroid Problems N GI Problems Y Depression N COPD N Blood Clots N Have you had a mammogram in the last yea r? Y Skin Problems N Anemia N Heart Attack ([place]) N Anxiety Disorder Y Diabetes N Muscle, Joint, or Bone Problems N Seizures/Epilepsy N Have you had a colonoscopy in the last 1 0 years? Y Acid Reflux (GERD) Y Cancer N Stroke N Asthma N Allergies N Have you had a PSA blood test in the las t year? N High Cholesterol Y Hepatitis N Liver Disease N Headaches N Osteoporosis N Heart Failure N Gynecological History Statement/Question Response If Post Menopausal, Age at Menopause 54 Obstetrics History GPAL:G 2 P 2 0 0 1 Type Value Full Term 2 Living 1 Total 2 Immunizations Vaccine Type Date Status Note Provider Nam e and Address Organization Details Recorded Time zoster recombinant 9 completed Kiki Orozco [place], [place] - [facility] 10/30/2023 10:14:25 zoster recombinant 9 completed Kiki Oroz[place] [facility] 10/30/2023 10:14:25 Influenza, high-dose, quadrivalent, PF 0 completed Kiki Oroz[place] [facility] 10/30/2023 10:14:25 Influenza, high-dose, quadrivalent, PF 1 completed Kiki Oroz[place] [facility] 10/30/2023 10:14:25 Influenza, high-dose, quadrivalent, PF 1 completed Kiki Oroz[place] [facility] 10/30/2023 10:14:25 Influenza, adjuvanted, quadrivalent, PF 3 completed Kiki Oroz[place] [facility] 10/30/2023 10:14:25 Influenza, adjuvanted, quadrivalent, PF 2 completed Kiki [place]roz[place] [facility] 10/30/2023 10:14:25 COVID-19, mRNA, LNP-S, PF, 30 mcg/0.3 mL dose 1 completed Kiki [place]roz[place] [facility] 10/30/2023 10:14:25 COVID-19, mRNA, LNP-S, PF, 30 mcg/0.3 mL dose 1 completed Kiki [place] [facility] 10/30/2023 10:14:25 COVID-19, mRNA, LNP-S, PF, 30 mcg/0.3 mL dose 1 completed Kiki [place]roz[place] [facility] 10/30/2023 10:14:25 COVID-19, mRNA, LNP-S, PF, 30 mcg/0.3 mL dose, soniya-sucrose 2 completed Kiki [place] [facility] 10/30/2023 10:14:25 pneumococcal polysaccharide PPV23 0 completed Kiki [place] [facility] 10/30/2023 10:14:25 Pneumococcal conjugate PCV 13 8 completed Kiki [place] [facility] 10/30/2023 10:14:25 zoster live 3 completed Kiki [place] [facility] 10/30/2023 10:14:25 Influenza, high-dose, trivalent, PF 9 completed Kiki [place] [facility] 10/30/2023 10:14:25 Influenza, high-dose, trivalent, PF 8 completed Kiki [place] [facility] 10/30/2023 10:14:25 Influenza, high-dose, trivalent, PF 7 completed Kiki [place] [facility] 10/30/2023 10:14:25 Influenza, high-dose, trivalent, PF 6 completed Kiki Orozco [place] null, [place] [facility] 10/30/2023 10:14:25 Influenza, high-dose, trivalent, PF 5 completed LUCINA Law, [place] [facility] 10/30/2023 10:14:25 Influenza, split virus, trivalent, PF 4 completed LUCINA [place] [facility] 10/30/2023 10:14:25 Past Encounters Encounter ID Performer Location Encounter Start Date Encounter Closed Date Diagnosis/Indication Diagnosis SNOMED-CT Code Diagnosis ICD10 Code Diagnosis Note [id number] Robert Ramey MD [facility] [employer] [facility] [place] [address] [place] [address] 07/28/2023 10:54:04 07/28/2023 12:28:43 Gastroesophageal reflux disease without esophagitis 555836845 K21.9 Anxiety 74849747 F41.9 Hyperlipidemia 77371284 E78.5 Osteoporosis 13374165 M8 1.0 Chronic ki dney disease stage 2 883244104 N18.2 Microscopic colitis 2357 38185 K52.567 [id number] Robert Ramey MD [facility] [employer] [facility] [place] [address] [place] [address] 10/30/2023 10:01:39 10/30/2023 10:50:31 Pneumonia 695172409 J18.9 [id number] Robert Ramey MD [facility] [employer] [facility] [place] [address] [place] [address] 12/01/2023 10:46:53 12/01/2023 12:15:17 Anxiety 11246821 F41.9 Chronic ki dney disease stage 2 751444597 N18.2 Gastroesop hageal reflux disease without esophagitis 464616468 K21.9 Hyperlipidemia 11728546 E78.5 Microscopic colitis 2357 26462 K52.839 Osteoporosis 51577588 M8 1.0 [id number] Robert Ramey MD [facility] [employer] [facility] [place] [address] [place] [address] 12/25/2023 11:30:07 12/25/2023 12:17:30 Adult health examination 772242550 Z00.00 Health Risk Assessment collected and reviewed [id number] Robert Ramey MD [facility] [employer] [facility] [place] [address] [place] [address] 03/29/2024 10:55:55 03/29/2024 12:02:09 Neck pain 97982219 M54.2 Pain of ri ght shoulder joint 1102490425 7351491 M25.511 Overweight 806574016 E66 .3 Anxiety 52968885 F41.9 Gastroesop hageal reflux disease without esophagitis 922972921 K21.9 Chronic ki dney disease stage 2 168659955 N18.2 Hyperlipidemia 32523142 E78.5 Microscopic colitis 2357 52630 K52.839 Health Concerns Section Related Observation LastModified by Organization Detai ls LastModified Time None Recorded Concern Status LastModified by Organization Details LastModified Time None Recorded Advance Directives Directive Y: Payers Encounter Date Sequence Insurance Name Policy Number Policy Jones Covered Member ID Jones Member ID Guarantor Name 07/28/2023 1 [employer] (MEDICARE REPLACEMENT PPO) [id number] Lucia L Roopa [id number] Lucia L Roopa 10/30/2023 1 [employer] (MEDICARE REPLACEMENT PPO) [id number] 1 Lucia L Roopa [id number] Lucia L Roopa 12/01/2023 1 [employer] (MEDICARE REPLACEMENT PPO) [id number] 1 Lucia L Oropa [id number] Lucia L Roopa 12/25/2023 1 [employer] (MEDICARE REPLACEMENT PPO) [id number] 1 Lucia L Roopa [id number] Lucia L Roopa 03/29/2024 1 [employer] (MEDICARE REPLACEMENT PPO) [id number] 1 Lucia Blas [id number] Lucia Blas Notes Date Note Type Note Provider Name and Address Organization Details Recorded Time 07/28/2023 text/html 73-year-old with a history of GERD anxiety hyperlipidemia osteoporosis CKD 2 and microscopic colitis recently diagnosed and been placed on steroids and feeling a little bit better. Regards been doing fine anxiety she lost her in the last couple of months but has been doing great she is good very supportive family hyperlipidemia does try to watch her diet osteoporosis she is taking the Prolia without any side effects. She recently saw her kidney specialist and everything checked out there. Robert Ramey MD Attn: [address] [place], [address], [facility] - [facility] 07/28/2023 13:46:16 10/30/2023 text/html Pneumonia had so me cough she is feeling better. Robert Ramey MD Attn: [address] [place], [address], [facility] - [place] 11/15/2023 13:09:37 12/01/2023 text/html pneumonia improv ed dyslipidemia trying to watch her diet microscopic colitis she still has a little bit of twinge of abdominal discomfort she will consider seeing GI again anxiety has been doing fine osteoporosis taking Prolia Robert Ramey MD Attn: [address] [place], [address], [facility] - [place] 12/06/2023 14:46:23 12/25/2023 text/html MAW 2Reported bypatient.Diet and Nutrition:healthy diet Fracture Risk:no sudden unexplained fractures;history of fractures(7th grade broke collar bone, 2007 broke left wrist) Concentration and Memory:no decreased concentrating ability; no memory lapses or loss; does not forget words Speech/Motor difficulties:no speech difficulties; no difficulty expressing formulated concepts; no difficulty with fine manipulative tasks; no difficulty writing/copying; no slowed reaction time; does not knock things over when trying to pick them up Hearing:no loss of hearing Vision:no vision problems Activities of Daily Living:able to bathe with limited or no assistance; able to contol urination and bowels; able to dress with limited or no assistance; able to feed self with limited or no assistance; able to get out of chair or bed with limited or no assistance; able to groom with limited or no assistance; able to toilet with limited or no assistance Instrumental Activities of Daily Living:able to do house work with limited or no assistance; able to grocery shop with limited or no assistance; able to manage medications with limited or no assistance; able to manage money with limited or no assistance; able to prepare meals with limited or no assistance; able to use the phone with limited or no assistance Falls Risk Assessment:no frequent falls while walking; no fall in the past year; no fall since last visit; no dizziness/vertigo Home Safety:no unsafe travis hazzards; no unsafe stairs; working smoke/CO detectors; practicing 'safer sex'; no fire arms; has hand bars in the bathroom/shower; good lighting in the home Robert Ramey MD Attn: Accounting[address] [place], [address], [facility] [place]/27/2023 14:43:27 03/29/2024 text/html GERD no nausea n o vomiting at this time CKD 2 no referable complaints to that dyslipidemia does eat pretty healthy microscopic colitis she will have diarrhea every 3 or 4 days little bit she will take a couple of Imodium and that is doing fine no blood in her stool no fever no chills. She is not using any anti-inflammatories at this time atraumatic pain in her neck from time to time that radiates to her right shoulder no specific injury Robert Ramey MD Attn: [address]ing[address] [place], [address], [facility] [place] 03/29/2024 23:24:15 OBGyn Episode No OBEpisode recorded.
--- OUTSIDE RECORDS SUMMARY | 2024-08-06 06:37 | XMS_ITS | Encounter Summary ---
Author Organization [facility] Address [address] [place] [address] Care Team Providers Care Sewing Room Supervisor Name Role Phone Arie Ramey MD Primary Care Provider [phone] Encounter Details Date Type Department Care Team (Latest Contact Info) Description 06/16/2003 Outpatient Historical [facility] Chas Robin MD [address] [place] [phone] SCREENING MAMM-MAILG NEOPL-OTHER (Primary Dx) Social History Tobacco Use Types Packs/Day Years Used Date Smoking Tobacco: Never Assessed Comments Unknown Sex and Gender Information Value Date Recorded Sex Assigned at Not on file 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
--- OUTSIDE RECORDS SUMMARY | 2024-08-06 06:37 | XMS_ITS | Encounter Summary ---
Author Organization [facility] Address [address] [place] [address] Care Team Providers Care Structural Technician Name Role Phone Arie Ramey MD Primary Care Provider [phone] Encounter Details Date Type Department Care Team (Latest Contact Info) Description 07/02/2004 Outpatient Historical [facility] Chas Robin MD [address] [facility] [address] [place] [phone] SCREENING MAMM-MAILG NEOPL-OTHER (Primary Dx) Social History Tobacco Use Types Packs/Day Years Used Date Smoking Tobacco: Never Assessed Comments Unknown Sex and Gender Information Value Date Recorded Sex Assigned at Not on file 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
--- OUTSIDE RECORDS SUMMARY | 2024-08-06 06:37 | XMS_ITS | Clinical Summary ---
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 Gender Identity Not on file Sexual Orientation Not on file Occupation Industry Job Start Date Job End Date Not on file Not on file Not on file Not on file Plan of Treatment Health Maintenance Due Date Last Done Comments DTAP/TDAP/TD VACCINES (1 - Tdap) 1968 COLORECTAL SCREENING 1994 Colorectal Cancer Screening 1994 FIT-DNA Q 3 years 1994 FIT/FOBT Q 1 year 1994 Flex Sig/CT Colonography Q 5 years 1994 PNEUMOCOCCAL VACCINE 50+ YEARS (1 of 1 - PCV) 05/01/19 00 ZOSTER VACCINE (1 of 2) 1999 OSTEOPOROSIS SCREENING 2014 INFLUENZA VACCINE (#1) 2023 RSV VACCINE (60+ or ) (1 - 1-dose 75+ series) 2024 Care Teams Computer Systems Support Specialist Relationship Specialty Start Date End Date Arie Ramey MD [address] [place] [address] PCP - General 05/24/02
--- OUTSIDE RECORDS SUMMARY | 2024-08-06 06:37 | XMS_ITS | Data Portability ---
Author Organization [place] - [facility] incred[facility], Main Office Address [address] [place] [address] Care Team Providers Care Phlebotomy Support Tech Name Role Phone ROBERT RAMEY Primary Care Provider [phone] ROBERT RAMEY Referring Provider Assessment Encounter Date Assessment Date Assessment LastModified by Organization Details LastModified Time 08/15/2022 08/15/2022 I will see her in a month start to back off of the Lexapro because of her sodium of 132 she will cut down by 5 mg daily each week which means starting this next week she will take 1 day which she will take 5 mg the rest of the day she will take 10 following week they will be 2 days of 5 mg week after that 3 days of 5 mg and so on. I will get set up with [facility] And as stated I will see her in a month and see are weight is doing [email or web address] Not available 08/17/2022 16:03:17 09/03/2022 09/03/2022 Continuing to deescalate the Lexapro wellness questionnaire completed DEXA and mammogram ordered follow-up 3 my [email or web address] Not available 09/07/2022 16:00:36 11/21/2022 11/21/2022 Continue current therapy discussed her medications will follow-up with me in 4 [email or web address] Not available 11/21/2022 14:48:22 01/30/2023 01/30/2023 X-ray mandible blood work and stool studies for diarrhea CT abdomen pelvis without contrast given her history of renal insufficiency follow-up with me in 3-4 weeks will hold Prolia for a little bit Not available 01/30/2023 21:42:32 03/13/2023 03/13/2023 She has been sent to pain management per her surgeon other medications will continue she will follow-up with me in 4 months. Will get colonoscopy done [email or web address] Not available 03/13/2023 14:09:43 Plan of Treatment Reminders Order Date Submit Date Provider Last Modified By Organization Details Last Modified Time Details Appointments None recorded. Lab O&P (ova & parasites), stool 2022 023 [email or web address] Not available 4 11:03:38 culture, stool 2022 023 LUPE Not available 3 07:58:48 urinalysis, microscopic 2022 023 [email or web address] Not available 4 11:03:39 culture, urine + sensitivity 2022 023 cyahl Not available 4 11:03:39 CMP, serum or plasma 2022 023 LUPE Not available 3 18:25:43 CBC w/ auto diff 2022 023 LUPE Not available 3 18:10:09 T4, free, serum 2022 023 LUPE Not available 3 18:27:09 T3, free, serum or plasma 2022 023 LUPE Not available 3 18:27:14 TSH, serum or plasma 2022 023 LUPE Not available 3 18:45:46 Referral None recorded. Procedures None recorded. Surgeries None recorded. Imaging CT, abdomen + pelvis, w/o contrast - approved [id number] 01/31/23-2022 023 LUPE Not available 3 12:30:34 XR, mandible 2022 023 cyahl Not available 4 10:49:01 DEXA 2022 023 cyahl Not available 3 08:55:23 Medication Orders Prolia 60 mg/mL subcutaneou s syringe 2022 023 [id number], [address] , [place], [place], [id number], 12:21:19 Patient TargetsNo targets recorded. Patient Instructions Encounter Date Encounter Id Patient Instructions Last Modified By Organization Details Last Modified Time 09/03/2022 [id number] dementia rating scale-2* [email or web address] Not available 09/03/2022 12:21:19 alcohol misuse* Not available 09/03/2022 12:21:19 depression screening* [email or web address] Not available 09/03/2022 12:21:19 multi-dimensiona l health assessment questionnaire* [email or web address] Not available 09/03/2022 12:21:19 Personalized Hea lth Plan and Screening Recommendations Advance Directives - Do you have one? Yes Advance Directives - Do we have your advance directive on file in your health record? No, please bring in a copy at your earliest convenience Primary Prevention/Interven tion (prevents or decreases the chance of common diseases from occurring) Smoking Risk: Non Smoker Alcohol Misuse Screening: Negative Weight: Appropriate Physical activity: Need more exercise/physical activity Nutrition: Good Average Fall Risk (screened today): Low Vaccines Pneumococcal: Ordered Recommended today Recommended today, but you have declined No further needed Influenza: Your next one in the fall of this year Chronic Disease Risks Stroke: Low Risk Intermediate Risk I have no recommendations Act yazmin diagnosis, Continue current treatment plan Heart Attack: Low risk Intermediate Risk I have no recommendations Act yazmin diagnosis, Continue current treatment plan Clogging of the Arteries: Low risk Intermediate Risk I have no recommendations Act yazmin diagnosis, Continue current treatment plan Diabetes: Low Risk I have no recommendations Secondary Prevention/Interven tion (detects treatable diseases before they may cause symptoms, disability, or ) Breast Cancer Screening with mammogram: Your next mammogram: Ordered Recommended today Cervical/Uterine/Ov ernie Cancer Screening: No screening necessary Osteoporosis Screening: Your next DEXA in: Ordered Recomme nded today Date Screening Last Performed: Colon Cancer Screening: Colonoscopy Fecal Occult Blood Cologuard (DNA stool test) Date Screening Last Performed: Eye Disease Screening: Dementia Risk: Low I have no recommendations Depression Screening: Negative [email or web address] Not available 09/03/2022 11:08:43 Reason for Referral None Reported. Results Created Date Observation Date Name Description Value Unit Range Abnormal Flag Note LastModifiedBy Organization Detail LastModifiedTime 08/15/1908/14/2022 CBC/C OMPLE TE BLD COUNT W/DIF F white blood cells 7.5 x10'3 /uL 4.2-10 .8 Not Available [facility] (Lab) [address] [place], [address], 08/14/2022 18:22:57 08/15/1908/14/2022 CBC/C OMPLE TE BLD COUNT W/DIF F red blood cells 5.03 x10'6 /uL 3.80-5 .20 Not Available [facility] (Lab) [address] [place], [address], 08/14/2022 18:22:57 08/15/1908/14/2022 CBC/C OMPLE TE BLD COUNT W/DIF F hemoglobin 13.4 g/dL 12.0-1 5.6 Not Available [facility] (Lab) [address] [place], [address], 08/14/2022 18:22:57 08/15/1908/14/2022 CBC/C OMPLE TE BLD COUNT W/DIF F hematocrit 41.9 % 35.7-4 5.7 Not Available [facility] (Lab) [address] [place], [address], 08/14/2022 18:22:57 08/15/1908/14/2022 CBC/C OMPLE TE BLD COUNT W/DIF F mean red cell volume 83.3 fL 82.0-9 9.0 Not Available [facility] (Lab) [address] [place], [address], 08/14/2022 18:22:57 08/15/19 23 08/14/2022 CBC/C OMPLE TE BLD COUNT W/DIF F mean red cell hemoglobin 26.6 pg 27.0-3 3.0 low Not Available [facility] (Lab) [address] [place], [address], 08/14/2022 18:22:57 08/15/19 23 08/14/2022 CBC/C OMPLE TE BLD COUNT W/DIF F mean RBC HGB concentratio n 32.0 g/dL 31.0-3 6.0 Not Available [facility] (Lab) [address] [facility] [place], [address], 08/14/2022 18:22:57 08/15/19 23 08/14/2022 CBC/C OMPLE TE BLD COUNT W/DIF F red cell distribution width 14.3 % 11.8-1 5.5 Not Available [facility] (Lab) [address] [place], [address], 08/14/2022 18:22:57 08/15/19 23 08/14/2022 CBC/C OMPLE TE BLD COUNT W/DIF F platelets 379 x10'3 /uL 150-40 0 Not Available [facility] (Lab) [address] [place], [address], 08/14/2022 18:22:57 08/15/19 23 08/14/2022 CBC/C OMPLE TE BLD COUNT W/DIF F mean platelet volume 9.8 fL 9.0-12 .4 Not Available [facility] (Lab) [address] [place], [address], 08/14/2022 18:22:57 08/15/19 23 08/14/2022 CBC/C OMPLE TE BLD COUNT W/DIF F neutrophils 69.4 % 39.0-7 2.0 Not Available [facility] (Lab) [address] [facility] [place], [address], 08/14/2022 18:22:57 08/15/19 23 08/14/2022 CBC/C OMPLE TE BLD COUNT W/DIF F lymphocytes 22.3 % 16.0-4 7.0 Not Available [facility] (Lab) [address] [place], [address], 08/14/2022 18:22:57 08/15/19 23 08/14/2022 CBC/C OMPLE TE BLD COUNT W/DIF F monocytes 6.4 % 5.0-12 .0 Not Available [facility] (Lab) [address] [place], [address], 08/14/2022 18:22:57 08/15/19 23 08/14/2022 CBC/C OMPLE TE BLD COUNT W/DIF F eosinophils 0.9 % 1.0-7. 0 low Not Available [facility] (Lab) [address] [place], [address], 08/14/2022 18:22:57 08/15/19 23 08/14/2022 CBC/C OMPLE TE BLD COUNT W/DIF F basophils 0.7 % 0.0-2. 0 Not Available [facility] (Lab) [address] [place], [address], 08/14/2022 18:22:57 08/15/19 23 08/14/2022 CBC/C OMPLE TE BLD COUNT W/DIF F immature granulocytes 0.3 % 0.00-0 .50 Not Available [facility] (Lab) [address] [place], [address], 08/14/2022 18:22:57 08/15/19 23 08/14/2022 CBC/C OMPLE TE BLD COUNT W/DIF F neutrophils, absolute count 5.21 x10'3 /uL 1.5-8. 0 Not Available [facility] (Lab) [address] [place], [address], 08/14/2022 18:22:57 08/15/19 23 08/14/2022 CBC/C OMPLE TE BLD COUNT W/DIF F lymphocytes, absolute count 1.67 x10'3 /uL 1.07-3 .43 Not Available [facility] (Lab) [address] [place], [address], 08/14/2022 18:22:57 08/15/19 23 08/14/2022 CBC/C OMPLE TE BLD COUNT W/DIF F monocytes, absolute count 0.48 x10'3 /uL 0.29-0 .99 Not Available [facility] (Lab) [address] [place], [address], 08/14/2022 18:22:57 08/15/19 23 08/14/2022 CBC/C OMPLE TE BLD COUNT W/DIF F eosinophils, absolute count 0.07 x10'3 /uL 0.02-0 .53 Not Available [facility] (Lab) [address] [place], [address], 08/14/2022 18:22:57 08/15/19 23 08/14/2022 CBC/C OMPLE TE BLD COUNT W/DIF F basophils, absolute count 0.05 x10'3 /uL 0.01-0 .08 Not Available [facility] (Lab) [address] [place], [address], 08/14/2022 18:22:57 08/15/19 23 08/14/2022 CBC/C OMPLE TE BLD COUNT W/DIF F immature granulocytes ,absolute 0.02 x10'3 /uL 0.00-0 .05 Not Available [facility] (Lab) [address] [place], [address], 08/14/2022 18:22:57 08/15/19 23 08/14/2022 CBC/C OMPLE TE BLD COUNT W/DIF F nucleated red blood cells 0.0 % -0 Not Available [facility] (Lab) [address] [place], [address], 08/14/2022 18:22:57 08/15/19 23 08/14/2022 CBC/C OMPLE TE BLD COUNT W/DIF F NRBC# 0.00 x10'3 /uL Not Available [facility] (Lab) [address] [place], [address], 08/14/2022 18:22:57 08/15/19 23 08/14/2022 COMPR EHENS YAZMIN METAB OLIC PANEL sodium 132 mmol/ L 137-14 5 low Not Available [facility] (Lab) [address] [place], [address], 08/14/2022 18:23:03 08/15/19 23 08/14/2022 COMPR EHENS YAZMIN METAB OLIC PANEL potassium 4.7 mmol/ L 3.5-5. 1 Not Available [facility] (Lab) [address] [place], [address], 08/14/2022 18:23:03 08/15/19 23 08/14/2022 COMPR EHENS YAZMIN METAB OLIC PANEL chloride 98 mmol/ L 98-107 Not Available [facility] (Lab) [address] [place], [address], 08/14/2022 18:23:03 08/15/19 23 08/14/2022 COMPR EHENS YAZMIN METAB OLIC PANEL carbon dioxide 25 mmol/ L 22-30 Not Available [facility] (Lab) [address] [place], [address], 08/14/2022 18:23:03 08/15/19 23 08/14/2022 COMPR EHENS YAZMIN METAB OLIC PANEL anion gap 13.7 mmol/ L 14-22 low Not Available [facility] (Lab) [address] [place], [address], 08/14/2022 18:23:03 08/15/19 23 08/14/2022 COMPR EHENS YAZMIN METAB OLIC PANEL glucose 100 mg/dL 70-99 high Not Available [facility] (Lab) [address] [place], [address], 08/14/2022 18:23:03 08/15/19 23 08/14/2022 COMPR EHENS YAZMIN METAB OLIC PANEL BUN 13 mg/dL 8-19 Not Available [facility] (Lab) [address] [place], [address], 08/14/2022 18:23:03 08/15/19 23 08/14/2022 COMPR EHENS YAZMIN METAB OLIC PANEL creatinine 1.10 mg/dL 0.66-1 .25 Not Available [facility] (Lab) [address] [place], [address], 08/14/2022 18:23:03 08/15/19 23 08/14/2022 COMPR EHENS YAZMIN METAB OLIC PANEL GFR 49 Refer ence Range : [place] ge GFR Healt hy Adult : >60 mL/mi n/1.7 3 m2 Chron ic Kidne y Disea se: 15-60 mL/mi n/1.7 3 m2 Kidne y Failu re: <15/m L/min /1.73 m2 www.n iddk. nih.g ov The MDRD study equat ion has not been valid ated in child noah <18 years of age; pregn ant women ; the elder ly >85 years of age; or in some racia l or ethni c subgr oups, such as Hispa nics. Outsi de the valid ated luiz eters , estim ated GFR is less accur ate, requi ring clini albertina judgm ent on a case- by-ca se basis . Clini albertina inter preta tion for other races and ages must be made by the clini dali. The MDRD study equat ion has not been valid ated for the evalu ation of serum creat inine relat ed to nutri renetta l statu s or medic ation usage . For perso ns <18 years of age, a pedia tric GFR calcu lator is avail able on the [facility] websi te: https ://ministerio reina.missael myrick/pr ofess ional s/kdo qi/gf r_cal culat or Not Available [facility] (Lab) [address] [place], [address], 08/14/2022 18:23:03 08/15/19 23 08/14/2022 COMPR EHENS YAZMIN METAB OLIC PANEL alkaline phosphatase 67 U/L 38-126 Not Available [facility] (Lab) [address] [place], [address], 08/14/2022 18:23:03 08/15/19 23 08/14/2022 COMPR EHENS YAZMIN METAB OLIC PANEL alanine aminotransfe rase 24 U/L 0-35 Not Available [facility] (Lab) [address] [place], [address], 08/14/2022 18:23:03 08/15/19 23 08/14/2022 COMPR EHENS YAZMIN METAB OLIC PANEL aspartate aminotransfe rase 33 U/L 15-37 Not Available [facility] (Lab) [address] [place], [address], 08/14/2022 18:23:03 08/15/19 23 08/14/2022 COMPR EHENS YAZMIN METAB OLIC PANEL bilirubin, total 1.10 mg/dL 0.20-1 .30 Not Available [facility] (Lab) [address] [place], [address], 08/14/2022 18:23:03 08/15/19 23 08/14/2022 COMPR EHENS YAZMIN METAB OLIC PANEL calcium 9.5 mg/dL 8.4-10 .2 Not Available [facility] (Lab) [address] [place], [address], 08/14/2022 18:23:03 08/15/19 23 08/14/2022 COMPR EHENS YAZMIN METAB OLIC PANEL total protein 7.1 g/dL 6.3-8. 2 Not Available [facility] (Lab) [address] [place], [address], 08/14/2022 18:23:03 08/15/19 23 08/14/2022 COMPR EHENS YAZMIN METAB OLIC PANEL albumin 4.3 g/dL 3.0-4. 4 Not Available [facility] (Lab) [address] [place], [address], 08/14/2022 18:23:03 08/15/19 23 08/14/2022 COMPR EHENS YAZMIN METAB OLIC PANEL globulin 2.8 g/dL 2.6-4. 2 Not Available [facility] (Lab) [address] [place], [address], 08/14/2022 18:23:03 08/15/19 23 08/14/2022 COMPR EHENS YAZMIN METAB OLIC PANEL A/G ratio 1.5 ratio 1.0-2. 0 Not Available [facility] (Lab) [address] [place], [address], 08/14/2022 18:23:03 08/15/19 23 08/14/2022 T3 FREE free T3 4.1 pg/mL 2.77-5 .27 Not Available [facility] (Lab) [address] [place], [address], 08/14/2022 18:43:57 08/15/19 23 08/14/2022 T4 FREE free T4 1.72 NG/dL 0.78-2 .19 Not Available [facility] (Lab) [address] [place], [address], 08/14/2022 18:43:59 08/15/19 23 08/14/2022 TSH thyroid-stim ulating hormone 2.150 uIU/m L 0.465- 4.680 Not Available [facility] (Lab) [address] [place], [address], 08/14/2022 18:48:06 02/04/2002/03/2023 CBC/C OMPLE TE BLD COUNT W/DIF F white blood cells 7.2 x10'3 /uL 4.2-10 .8 Not Available [facility] (Lab) [address] [place], [address], 02/03/2023 18:10:08 02/04/2002/03/2023 CBC/C OMPLE TE BLD COUNT W/DIF F red blood cells 4.85 x10'6 /uL 3.80-5 .20 Not Available [facility] (Lab) [address] [place], [address], 02/03/2023 18:10:08 02/04/2002/03/2023 CBC/C OMPLE TE BLD COUNT W/DIF F hemoglobin 13.1 g/dL 12.0-1 5.6 Not Available [facility] (Lab) [address] [place], [address], 02/03/2023 18:10:08 02/04/2002/03/2023 CBC/C OMPLE TE BLD COUNT W/DIF F hematocrit 41.1 % 35.7-4 5.7 Not Available [facility] (Lab) [address] [place], [address], 02/03/2023 18:10:08 02/04/2002/03/2023 CBC/C OMPLE TE BLD COUNT W/DIF F mean red cell volume 84.7 fL 82.0-9 9.0 Not Available [facility] (Lab) [address] [place], [address], 02/03/2023 18:10:08 02/04/2002/03/2023 CBC/C OMPLE TE BLD COUNT W/DIF F mean red cell hemoglobin 27.0 pg 27.0-3 3.0 Not Available [facility] (Lab) [address] [place], [address], 02/03/2023 18:10:08 02/04/2002/03/2023 CBC/C OMPLE TE BLD COUNT W/DIF F mean RBC HGB concentratio n 31.9 g/dL 31.0-3 6.0 Not Available [facility] (Lab) [address] [place], [address], 02/03/2023 18:10:08 02/04/2002/03/2023 CBC/C OMPLE TE BLD COUNT W/DIF F red cell distribution width 13.9 % 11.8-1 5.5 Not Available [facility] (Lab) [address] [place], [address], 02/03/2023 18:10:08 02/04/2002/03/2023 CBC/C OMPLE TE BLD COUNT W/DIF F platelets 369 x10'3 /uL 150-40 0 Not Available [facility] (Lab) [address] [place], [address], 02/03/2023 18:10:08 02/04/2002/03/2023 CBC/C OMPLE TE BLD COUNT W/DIF F mean platelet volume 9.9 fL 9.0-12 .4 Not Available [facility] (Lab) [address] [place], [address], 02/03/2023 18:10:08 02/04/2002/03/2023 CBC/C OMPLE TE BLD COUNT W/DIF F neutrophils 73.9 % 39.0-7 2.0 high Not Available [facility] (Lab) [address] [place], [address], 02/03/2023 18:10:08 02/04/2002/03/2023 CBC/C OMPLE TE BLD COUNT W/DIF F lymphocytes 18.9 % 16.0-4 7.0 Not Available [facility] (Lab) [address] [place], [address], 02/03/2023 18:10:08 02/04/2002/03/2023 CBC/C OMPLE TE BLD COUNT W/DIF F monocytes 6.4 % 5.0-12 .0 Not Available [facility] (Lab) [address] [place], [address], 02/03/2023 18:10:08 02/04/2002/03/2023 CBC/C OMPLE TE BLD COUNT W/DIF F eosinophils 0.1 % 1.0-7. 0 low Not Available [facility] (Lab) [address] [place], [address], 02/03/2023 18:10:08 02/04/2002/03/2023 CBC/C OMPLE TE BLD COUNT W/DIF F basophils 0.6 % 0.0-2. 0 Not Available [facility] (Lab) [address] [place], [address], 02/03/2023 18:10:08 02/04/2002/03/2023 CBC/C OMPLE TE BLD COUNT W/DIF F immature granulocytes 0.1 % 0.00-0 .50 Not Available [facility] (Lab) [address] [place], [address], 02/03/2023 18:10:08 02/04/2002/03/2023 CBC/C OMPLE TE BLD COUNT W/DIF F neutrophils, absolute count 5.33 x10'3 /uL 1.5-8. 0 Not Available [facility] (Lab) [address] [place], [address], 02/03/2023 18:10:08 02/04/2002/03/2023 CBC/C OMPLE TE BLD COUNT W/DIF F lymphocytes, absolute count 1.36 x10'3 /uL 1.07-3 .43 Not Available [facility] (Lab) [address] [place], [address], 02/03/2023 18:10:08 02/04/2002/03/2023 CBC/C OMPLE TE BLD COUNT W/DIF F monocytes, absolute count 0.46 x10'3 /uL 0.29-0 .99 Not Available [facility] (Lab) [address] [place], [address], 02/03/2023 18:10:08 02/04/2002/03/2023 CBC/C OMPLE TE BLD COUNT W/DIF F eosinophils, absolute count 0.01 x10'3 /uL 0.02-0 .53 low Not Available [facility] (Lab) [address] [place], [address], 02/03/2023 18:10:08 02/04/2002/03/2023 CBC/C OMPLE TE BLD COUNT W/DIF F basophils, absolute count 0.04 x10'3 /uL 0.01-0 .08 Not Available [facility] (Lab) [address] [place], [address], 02/03/2023 18:10:08 02/04/2002/03/2023 CBC/C OMPLE TE BLD COUNT W/DIF F immature granulocytes ,absolute 0.01 x10'3 /uL 0.00-0 .05 Not Available [facility] (Lab) [address] [place], [address], 02/03/2023 18:10:08 02/04/2002/03/2023 CBC/C OMPLE TE BLD COUNT W/DIF F nucleated red blood cells 0.0 % -0 Not Available [facility] (Lab) [address] [place], [address], 02/03/2023 18:10:08 02/04/2002/03/2023 CBC/C OMPLE TE BLD COUNT W/DIF F NRBC# 0.00 x10'3 /uL Not Available [facility] (Lab) [address] [place], [address], 02/03/2023 18:10:08 02/04/2002/03/2023 URINE MICRO SCOPI C EXAM/ IRIS white blood cells 0-8 /i??h pfi?? 0-8 Not Available [facility] (Lab) [address] [facility] [place], [address], 02/03/2023 18:11:00 02/04/2002/03/2023 URINE MICRO SCOPI C EXAM/ IRIS red blood cells 11-20 /i??h pfi?? 0-4 abnormal Not Available [facility] (Lab) [address] [place], [address], 02/03/2023 18:11:00 02/04/2002/03/2023 URINE MICRO SCOPI C EXAM/ IRIS bacteria NONE Not Available [facility] (Lab) [address] [place], [address], 02/03/2023 18:11:00 02/04/2002/03/2023 URINE MICRO SCOPI C EXAM/ IRIS mucous MODERA TE /i??l pfi?? abnormal Not Available [facility] (Lab) [address] [place], [address], 02/03/2023 18:11:00 02/04/2002/03/2023 URINE MICRO SCOPI C EXAM/ IRIS squamous epithelial FEW /i??l pfi?? abnormal Not Available [facility] (Lab) [address] [place], [address], 02/03/2023 18:11:00 02/04/2002/03/2023 URINE MICRO SCOPI C EXAM/ IRIS hyaline cast PACKED FIELD /i??l pfi?? none seen- abnormal Not Available [facility] (Lab) [address] [place], [address], 02/03/2023 18:11:00 02/04/2002/03/2023 URINE MICRO SCOPI C EXAM/ IRIS calcium oxalate crystal MODERA TE /i??h pfi?? none seen- abnormal Not Available [facility] (Lab) [address] [place], [address], 02/03/2023 18:11:00 02/04/2002/03/2023 COMPR EHENS YAZMIN METAB OLIC PANEL sodium 135 mmol/ L 137-14 5 low Not Available [facility] (Lab) [address] [place], [address], 02/03/2023 18:25:43 02/04/2002/03/2023 COMPR EHENS YAZMIN METAB OLIC PANEL potassium 4.1 mmol/ L 3.5-5. 1 Not Available [facility] (Lab) [address] [place], [address], 02/03/2023 18:25:43 02/04/2002/03/2023 COMPR EHENS YAZMIN METAB OLIC PANEL chloride 102 mmol/ L 98-107 Not Available [facility] (Lab) [address] [place], [address], 02/03/2023 18:25:43 02/04/2002/03/2023 COMPR EHENS YAZMIN METAB OLIC PANEL carbon dioxide 28 mmol/ L 22-30 Not Available [facility] (Lab) [address] [place], [address], 02/03/2023 18:25:43 02/04/2002/03/2023 COMPR EHENS YAZMIN METAB OLIC PANEL anion gap 9.1 mmol/ L 14-22 low Not Available [facility] (Lab) [address] [place], [address], 02/03/2023 18:25:43 02/04/2002/03/2023 COMPR EHENS YAZMIN METAB OLIC PANEL glucose 95 mg/dL 70-99 Not Available [facility] (Lab) [address] [place], [address], 02/03/2023 18:25:43 02/04/2002/03/2023 COMPR EHENS YAZMIN METAB OLIC PANEL BUN 17 mg/dL 8-19 Not Available [facility] (Lab) [address] [place], [address], 02/03/2023 18:25:43 02/04/2002/03/2023 COMPR EHENS YAZMIN METAB OLIC PANEL creatinine 1.15 mg/dL 0.66-1 .25 Not Available [facility] (Lab) [address] [place], [address], 02/03/2023 18:25:43 02/04/2002/03/2023 COMPR EHENS YAZMIN METAB OLIC PANEL GFR 46 Refer ence Range : [place] ge GFR Healt hy Adult : >60 mL/mi n/1.7 3 m2 Chron ic Kidne y Disea se: 15-60 mL/mi n/1.7 3 m2 Kidne y Failu re: <15/m L/min /1.73 m2 www.n iddk. nih.g ov The MDRD study equat ion has not been valid ated in child noah <18 years of age; pregn ant women ; the elder ly >85 years of age; or in some racia l or ethni c subgr oups, such as Hispa nics. Outsi de the valid ated luiz eters , estim ated GFR is less accur ate, requi ring clini albertina judgm ent on a case- by-ca se basis . Clini albertina inter preta tion for other races and ages must be made by the clini dali. The MDRD study equat ion has not been valid ated for the evalu ation of serum creat inine relat ed to nutri renetta l statu s or medic ation usage . For perso ns <18 years of age, a pedia tric GFR calcu lator is avail able on the [facility] websi te: https ://ministerio w.carey nuno.o rg/pr ofess ional s/kdo qi/gf r_cal culat or Not Available [facility] (Lab) [address] [place], [address], 02/03/2023 18:25:43 02/04/2002/03/2023 COMPR EHENS YAZMIN METAB OLIC PANEL alkaline phosphatase 61 U/L 38-126 Not Available [facility] (Lab) [address] [place], [address], 02/03/2023 18:25:43 02/04/2002/03/2023 COMPR EHENS YAZMIN METAB OLIC PANEL alanine aminotransfe rase 21 U/L 0-35 Not Available [facility] (Lab) [address] [place], [address], 02/03/2023 18:25:43 02/04/2002/03/2023 COMPR EHENS YAZMIN METAB OLIC PANEL aspartate aminotransfe rase 29 U/L 15-37 Not Available [facility] (Lab) [address] [place], [address], 02/03/2023 18:25:43 02/04/2002/03/2023 COMPR EHENS YAZMIN METAB OLIC PANEL bilirubin, total 1.00 mg/dL 0.20-1 .30 Not Available [facility] (Lab) [address] [place], [address], 02/03/2023 18:25:43 02/04/2002/03/2023 COMPR EHENS YAZMIN METAB OLIC PANEL calcium 9.9 mg/dL 8.4-10 .2 Not Available [facility] (Lab) [address] [place], [address], 02/03/2023 18:25:43 02/04/2002/03/2023 COMPR EHENS YAZMIN METAB OLIC PANEL total protein 6.7 g/dL 6.3-8. 2 Not Available [facility] (Lab) [address] [place], [address], 02/03/2023 18:25:43 02/04/2002/03/2023 COMPR EHENS YAZMIN METAB OLIC PANEL albumin 4.0 g/dL 3.0-4. 4 Not Available [facility] (Lab) [address] [place], [address], 02/03/2023 18:25:43 02/04/2002/03/2023 COMPR EHENS YAZMIN METAB OLIC PANEL globulin 2.7 g/dL 2.6-4. 2 Not Available [facility] (Lab) [address] [place], [address], 02/03/2023 18:25:43 02/04/2002/03/2023 COMPR EHENS YAZMIN METAB OLIC PANEL A/G ratio 1.5 ratio 1.0-2. 0 Not Available [facility] [facility] [address] [place], [address], 02/03/2023 18:25:43 02/04/2002/03/2023 T4 FREE free T4 1.42 NG/dL 0.78-2 .19 Not Available [facility] (Lab) [address] [place], [address], 02/03/2023 18:27:09 02/04/2002/03/2023 T3 FREE free T3 4.8 pg/mL 2.77-5 .27 Not Available [facility] (Lab) [address] [place], [address], 02/03/2023 18:27:14 02/04/2002/03/2023 TSH thyroid-stim ulating hormone 2.070 uIU/m L 0.465- 4.680 Not Available [facility] (Lab) [address] [place], [address], 02/03/2023 18:45:46 02/05/2002/05/2023 SHIGA (E.CO LI) TOXIN STOOL toxin 1 NEGATI VE Not Available [facility] (Lab) [address] [place], [address], 02/05/2023 08:31:08 02/05/2002/05/2023 SHIGA (E.CO LI) TOXIN STOOL toxin 2 NEGATI VE THIS TEST IS FOR THE RAPID DETEC TION OF SHIGA TOXIN -PROD UCING STRAI NS OF ENTER OHEMO RRAGH IC E. COLI. Not Available [facility] (Lab) [address] [place], [address], 02/05/2023 08:31:08 02/05/2002/05/2023 SHIGA (E.CO LI) TOXIN STOOL QC pos POSITI VE Not Available [facility] (Lab) [address] [place], [address], 02/05/2023 08:31:08 02/05/2002/05/2023 SHIGA (E.CO LI) TOXIN STOOL QC neg NEGATI VE Not Available [facility] (Lab) [address] [place], [address], 02/05/2023 08:31:08 02/05/2002/14/2023 OVA + NAYE ITE EXAM ova + parasite exam Final report These resul ts were obtai denise using wet prepa ratio n(s) and trich david stain ed smear . This test does not inclu de testi ng for Crypt ospor idium parvu m, Cyclo spora , or Micro spori rasheed. Not Available [facility] (Lab) [address] [place], [address], 02/14/2023 19:08:35 02/05/20 23 02/14/2023 OVA + NAYE ITE EXAM result 1 Commen t No ova, cysts , or naye ites seen. . One negat yazmin speci men does not rule out the possi bilit y of a naye itic infec tion. Perfo rmed at: - [facility] [address] [facility], [place] [id number] [facility] Lab Direc tor: Bossman francisco PhD, Phone : [phone] Not Available [facility] (Lab) [address] [place], [address], 02/14/2023 19:08:35 09/07/19 23 [facility] [address] [place] [address] [phone] Patien t Name: JAYSON BLAS Access ion #: [id number] Sex: F : 1950 6 Locati on: RA2 Attend ing Physic yaneth: CHU RAMEY Orderi Physic yaneth: CHU RAMEY Exam Date: 023 9:56 AM Exam Name: XR DEXA AXIAL/ HIP/PE LVIS/S PINE Admitt ing Diagno sis(es ): RADIOL OGY REPORT - FINAL EXAM: XR DEXA AXIAL/ HIP/PE LVIS/S PINE HISTOR Y: osteop enia 72-yea r-old female with osteop orosis screen ing. COMPAR HOMAR: DEXA scan dated 2020 TECHNI QUE: Dual energy x-ray of absorp tion examin ation of the bilate ral hips and lumbar spine in AP projec tion was perfor med. FINDIN GS: Lumbar Spine (L1-L4 ): The mean bone minera l densit y is 1.305 g/cm2 hydrox yapati te, correl ating with a T-scor e of 0.9. BMD of the lumbar spine is increa sed 2.7% since the prior study. Bilate ral hips: The mean bone minera l densit y is 0.829 g/cm2 calciu m Page 1 of 2 [facility] Mare t Name: JAYSON BLAS ion #: [id number] Sex: F : 1950 6 Exam Date: 9:56 AM Exam Name: XR DEXA AXIAL/ HIP/PE LVIS/S PINE Admitt ing Diagno sis(es ): hydrox yapati te, correl ating with a T-scor e of -1.4. BMD of hips is decrea sed 1.7% since the prior study. IMPRES SANTY: 1. The patien t's lumbar spine T-scor e is consis tent with normal bone minera l densit y. 2. The patien t's bilate ral hip T-scor e is consis tent with osteop enia. Accord ing to the World Health Organi zation , T-scor e values greate r than -1.0 are normal , values betwee n -1.0 and -2.5 are catego rized as osteop enia, T-scor e of -2.5 or more are catego rized as osteop orosis . Create d and electr onical ly signed by: Jj freedman MD Signed Date: 10:12 AM (CT) Dictat ed by: Jj freedman MD DD: 10:12 AM (CT) DT: 10:12 AM (CT) Page 2 of 2 [facility] (Imaging) [address] [place], [address], 01/01/2023 08:55:22 09/11/19 23 09/10/2022 XR, chest , 2 view No observ ation record ed. [address], [place], [address], 02/22/2023 18:28:48 09/20/1909/19/2022 MAMMO , scree arina, digit al, bilat eral No observ ation record ed. [address], [place], [address], 02/22/2023 18:28:49 02/04/20 XR, kenneth ble [facility] [address] [place] [address] Patien t Name: ROOPA , JAYSON Vernon Access ion #: [id number] Sex: F : 1950 4 Dictat ed By: Clay Hanson Attend ing Physic yaneth: CHU RAMEY Orderi Physic yaneth: CHU RAMEY Exam Date: 2022 10:48 AM Exam Name: XR MANDIB LE 4V+ Admitt ing Diagno sis(es ): Mandib le radiog raph CLINIC AL INDICA TION: Pain TECHNI QUE: 2 radiog raphic views of the bilate ral jaw were obtain ed. Compar homar: FINDIN GS: There is no eviden ce of acute fractu re or disloc ation. The visual ized joint space is well mainta ined. The alignm ent is anatom ical. Soft tissue s are unrema rkable . IMPRES SANTY: No acute fractu re or disloc ation. Electr onical ly Signed by: Clay Hanson at 2022 15:31: 30 PM Page 1 [facility] (Imaging) [address] [facility], [place], [address], 04/30/2023 10:49:00 02/05/20 CT, abdom en + pelvi s, w/o contr ast [facility] [address] [place] [address] [phone] Patien t Name: ROOPA JAYSON Access ion #: [id number] Sex: F : 1950 8 Dictat ed By: Wong Parry Attend ing Physic yaneth: CHU RAMEY Physic yaneth: CHU RAMEY Exam Date: 2022 09:41 AM Exam Name: CT ABDOME N/PELV IS WO Admitt ing Diagno sis(es ): Exam: CT abdome n and Pelvis withou t contra st Clinic al Indica tion: pain CT imagin g perfor med at this locati on utiliz es radiat ion dose optimi zation techni ques which includ e one or more of the follow ing: -Autom ated exposu re contro l -Adjus tment of the mA and/or kV accord ing to patien t size -Use of iterat yazmin recons tructi on techni que CT Radiat ion Dose DLP Compar homar: None Techni que: Multi- detect or CT imagin g of the abdome n and pelvis is perfor med withou t contra st. Moore l and sagitt al recons tructi ons were obtain ed. IV CONTRA ST: none GI CONTRA ST: Oral contra st was admini stered . FINDIN GS: CT ABDOME N : LUNG BASES: Unrema rkable . ABDOMI NAL SOLID ORGANS : The liver shows no focal mass lesion s. The gallbl adder is normal Normal appear ing pancre as with no inflam matory change s. Normal adrena l glands . No mass lesion s are seen The pancre as shows no focal mass or inflam matory change s. No ductal dilita tion. The spleen is intact . The kidney s show normal size contou r and axis. No renal calcul i or hydron ephros is. Page 1 [facility] [address] [place] [phone] Patien t Name: JAYSON BLAS Access ion #: [id number] Sex: F : 1950 8 Dictat ed By: Wong Parry Attend ing Physic yaneth: SHIRA DAY Physic yaneth: CHU RAMEY Exam Date: 2022 09:41 AM Exam Name: CT ABDOME N/PELV IS WO Admitt ing Diagno sis(es ): STOMAC H AND BOWEL: The stomac h is unrema rkable . Small bowel loops visual ized are normal calibe r. The colon in the abdome n are unrema rkable . PERITO NEUM AND RETROP ERITON EUM: There is no abdomi nal lympha denopa thy. There is no pneumo perito neum or abdomi nal ascite s. There are no retrop eriton eal abnorm alitie s. VASCUL AR STRUCT URES: The abdomi nal aorta is unrema rkable withou t aneury sm. The inferi or vena cava is unrema rkable . The mesent tamar vessel s and portal veinou s struct ures are grossl y patent . OSSEOU S STRUCT URES: There are no signif icant osseou s abnorm alitie s seen. ------ - CT PELVIS : BOWEL: Rectos igmoid colon is unrema rkable . PERITO CHAVA AND EXTRAP ERITON EAL REGION S: There is no pelvic free fluid or lympha denopa thy. The inguin al region s are unrema rkable . BLADDE R / : The bladde r is unrema rkable . OSSEOU S STRUCT URES: There are no signif icant osseou s abnorm alitie s seen. ----- IMPRES SANTY: 1. No acute abdomi nal or pelvic findin gs. END IMPRES SANTY: Electr onical ly Signed by: Wong Parry at 2022 11:29: 19 AM Page [address] (Imaging) [address] [place], [address], 02/05/2023 17:03:41 11/05/1911/05/2023 XR, chest , 2 view No observ ation record ed. [email or web address] [facility] [address], [address], 12/25/2023 11:31:12 Result Notes None recorded. Problems Name Problem SNOMED Code Status Onset Date Resolution Date Notes Provider Name and Address Organization Details Recorded Time Renewal of prescripti on Active 2021 Not Available [facility] 3 22:47:58 Gastroesop hageal reflux disease 931186608 Active Not Available [facility] 3 22:47:58 Pure hyperchole sterolemia 758278283 Active Not Available [facility] 3 22:47:58 Low back pain 546256590 Active Not Available [facility] 3 22:47:58 Chest discomfort 321461161 Active Not Available [facility] 3 22:47:58 Osteopenia 951431512 Active Not Available [facility] 3 22:47:58 Pain in right hand 6940268760151 09 Active 2021 Not Available [facility] 3 22:47:58 Vitamin D deficiency 07809297 Active Not Available [facility] 3 22:47:58 Osteoarthr itis 982763685 Active 2018 Not Available [facility] 3 22:47:58 Anxiety 72914533 Active 2018 Not Available [facility] 3 22:47:58 Dysuria 12101406 Active 2021 Not Available [facility] 3 22:47:58 COVID-19 578351336 Active 2022 Not Available [facility] 3 22:47:58 Fatigue 97868886 Active 2022 Not Available [facility] 3 22:47:58 Abnormal weight 84554519 Active 2022 Not Available [facility] 3 22:47:58 Upper abdominal pain 19314677 Active 2022 Not Available [facility] 3 22:47:58 Jaw pain 920382833 Active 2022 Not Available [facility] 3 22:47:58 Diarrhea 95938013 Active 2022 Not Available [facility] 3 22:47:58 Abdominal pain 11193335 Active 2022 Not Available [facility] 3 22:47:58 Problem Notes None recorded. Procedures Surgical History Date Name Laterality Status Provider Name and Address Organization Details Recorded Time Medicare Wellness CPT Code, subsequent completed Marguerite Duncan RN [facility] 09/03/2022 11:01:46 9 Oncology colorectal scr completed Not Available [facility] 06/12/2022 04:44:13 other completed Not Available [facility] 04/2022 04:44:13 Imaging Results Imaging Date Name Status LastModified by Organiz ation Details LastModified Time 09/06/2022 DEXA completed [facility] (Imaging) [address] [place], [address], 01/01/2023 08:55:22 09/10/2022 XR, chest, 2 view [address], [address], 02/22/2023 18:28:48 09/19/2022 MAMMO, screening, digital, bilateral completed [address], [address], 02/22/2023 18:28:49 02/03/2023 XR, mandible completed [facility] (Imaging) [address] [place], [address], 04/30/2023 10:49:00 02/04/2023 CT, abdomen + pelvis, w/o contrast completed [address] (Imaging) [address] [place], [address], 02/05/2023 17:03:41 11/05/2023 XR, chest, [address] [facility] [address] [place] [address], [address], 12/25/2023 11:31:12 Procedure Notes None recorded. Medical Equipment None Reported. Allergies No known drug allergies Medications Name Sig Start Date Stop Date Status Note LastModified by Organization Details LastModified Time cyclobenz aprine 10 mg tablet active Not Available Not Available No t Available amoxicill in 500 mg capsule Take 1 capsule 3 times a day by oral route for 7 days. active Not Available Not Available No t Available atorvasta tin 20 mg tablet TAKE 1 TABLET BY MOUTH EVERY DAY active Not Available Not Available No t Available azithromy josias 250 mg tablet TAKE 2 TABLETS (500 MG) BY ORAL ROUTE ONCE DAILY FOR 1 DAY THEN 1 TABLET (250 MG) BY ORAL ROUTE ONCE DAILY FOR 4 DAYS 03/18 completed Not Available Not Available Not Available tizanidin e 4 mg tablet take one tablet by mouth twice a day as needed for back pain active Not Available Not Available No t Available hydrocodo ne 5 mg-acetam inophen 325 mg tablet 09/11 completed Not Available Not Available Not Available topiramat e 25 mg tablet TK 1 T PO QD FOR 7 DAYS THEN 1 T BID active Not Available Not Available No t Available ciproflox acin 500 mg tablet 04/13 completed Not Available Not Available Not Available sulfameth oxazole 800 mg-trimet hoprim 160 mg tablet TAKE 1 TABLET BY MOUTH TWICE DAILY 03/14 completed Not Available Not Available Not Available omeprazol e 40 mg capsule,d elayed release TAKE 1 CAPSULE BY MOUTH EVERY DAY 06/04 completed Not Available Not Available Not Available alprazola m 0.25 mg tablet TAKE 1 TABLET BY MOUTH TWICE DAILY active Not Available Not Available No t Available Kenalog 10 mg/mL suspensio n for injection In office injectio n administ ered by the provider 03/14 completed [facility]: [id number] Not Available Not Available Not Available nitrofura ntoin macrocrys mindy 100 mg capsule TK 1 C PO BID 03/18 completed Not Available Not Available Not Available omeprazol e 20 mg capsule,d elayed release TAKE ONE CAPSULE BY MOUTH EVERY DAY active Not Available Not Available No t Available ergocalci ferol (vitamin D2) 1,250 mcg (50,000 unit) capsule TAKE 1 CAPSULE BY MOUTH EVERY OTHER WEEK active Not Available Not Available No t Available budesonid e DR - ER 3 mg capsule,d elayed,ex tended release TAKE 3 CAPSULES BY MOUTH DAILY active Not Available Not Available No t Available Pepcid 20 mg tablet Take 1 tablet twice a day by oral route. 07/25 completed Not Available Not Available Not Available cefuroxim e axetil 500 mg tablet TK 1 T PO BID 05/27 completed Not Available Not Available Not Available methylpre dnisolone 4 mg tablets in a dose pack FOLLOW PACKAGE DIRECTIO NS 11/27 completed Not Available Not Available Not Available cefdinir 300 mg capsule Take 1 capsule twice a day by oral route for 7 days. active Not Available Not Available No t Available amoxicill in 875 mg-potass ium clavulana te 125 mg tablet 02/02 completed Not Available Not Available Not Available escitalop ankit 10 mg tablet TAKE 1 TABLET BY MOUTH EVERY DAY 11/21 completed pt taking 5mg Not Available Not Available Not Available Restasis 0.05 % eye drops in a dropperet te INSTILL 1 DROP IN BOTH EYES TWICE DAILY active Not Available Not Available No t Available escitalop ankit 5 mg tablet TAKE 1 TABLET BY MOUTH EVERY DAY active Not Available Not Available No t Available nitrofura ntoin monohydra te/macroc rystals 100 mg capsule 05/23 completed Not Available Not Available Not Available Vytorin 10 mg-20 mg tablet TK 1 T PO ONCE D 05/12 completed switched to atorvast atin Not Available Not Available Not Available tizanidin e 4 mg capsule TAKE 1 CAPSULE BY MOUTH THREE TIMES DAILY NEEDED FOR SPASMS active Not Available Not Available No t Available Besivance 0.6 % eye drops,timur pension INSTILL 1 GTT IN OPERATIV E EYE TID STARTING 2 DAYS PRIOR TO SURGERY 07/25 completed Not Available Not Available Not Available butalbita l-acetami nophen-ca ffeine 50 mg-300 mg-40 mg capsule TAKE 1 CAPSULE BY MOUTH THREE TIMES DAILY NEEDED FOR PAIN active Not Available Not Available No t Available Prolia 60 mg/mL subcutane ous syringe INJECT 1 ML UNDER THE SKIN DIRECTED active Not Available Not Available No t Available ropivacai ne (PF) 5 mg/mL (0.5 %) injection solution Take 1 mg by injectio n route. 03/14 completed Not Available Not Available Not Available Fluzone High-Dose (PF) 180 mcg/0.5 mL intramusc ular syringe active Not Available Not Available Not Available BromSite 0.075 % eye drops INSTILL 1 DROP IN APPOERAT YAZMIN EYE TWICE DAILY STARTING 2 DAYS PRIOR TO SURGERY active Not Available Not Available No t Available Shingrix (PF) 50 mcg/0.5 mL intramusc ular suspensio n, kit 03/18 completed Not Available Not Available Not Available Lotemax SM 0.38 % eye gel drops INSTILL 1 DROP IN OPERATIV E EYE THREE TIMES DAILY STARTING 2 DAYS PRIOR TO SURGERY 11/28 completed Not Available Not Available Not Available Fluzone Quad (PF) 60 mcg (15 mcg x 4)/0.5 mL IM syringe active Not Available Not Available Not Available ID NOW COVID-19 Test Kit TEST DIRECTED TODAY 05/30 completed Not Available Not Available Not Available Fluzone High-Dose Quad (PF) 240 mcg/0.7 mL IM syringe PHARMACY ADMINIST ERED 03/21 completed Not Available Not Available Not Available aspirin 81 mg capsule Take 1 capsule every day by oral route. 2021 active Not Available Not Available Not Avai lable Paxlovid 300 mg (150 mg x 2)-100 mg tablets in a dose pack Take 3 tablets twice a day by oral route for 5 days. 05/30 completed Not Available Not Available Not Available Vitals Date Recorded Body height Body mass index (BMI) Body weight Body temperature Heart rate Systolic blood pressure Diastolic blood pressure Provider Name and Address Organization Details Last Updated DateTime 3 162.56 cm 24.9 kg/m2 08243.8 9 g 97.6 [degF] 63 /min 118 mm[Hg] 84 mm[Hg] ANGELA Scales [facility] [employer] [facility] 3 11:15:35 Date Recorded Body height Body mass index (BMI) Body weight Body temperature Heart rate Oxygen saturation Oxygen saturation in Arterial blood by Pulse oximetry Systolic blood pressure Diastolic blood pressure Provider Name and Address Organization Details Last Updated DateTime 3 162.56 cm 24.7 kg/m2 19579.3 g 96.8 [degF] 78 /min 99 % 99 % 116 mm[Hg] 76 mm[Hg] Yuki Duke RN [facility] [employer] [facility] 3 10:51:37 Date Recorded Pain severity - 0-10 verbal numeric rating [Score] - Reported Provider Name and Address Organization Details Last Updated DateTime 09/03/2022 0 Marguerite Ducnan RN [facility] [email or web address] [facility] 09/03/2022 11:02:04 Date Recorded Body height Body mass index (BMI) Body weight Body temperature Heart rate Systolic blood pressure Diastolic blood pressure Provider Name and Address Organization Details Last Updated DateTime 3 162.56 cm 24.4 kg/m2 17035.1 2 g 97.2 [degF] 73 /min 112 mm[Hg] 70 mm[Hg] ANGELA Scales [facility] [email or web address] [facility] 3 14:12:00 Date Recorded Body height Body mass index (BMI) Body weight Body temperature Heart rate Systolic blood pressure Diastolic blood pressure Provider Name and Address Organization Details Last Updated DateTime 3 162.56 cm 23.5 kg/m2 10863.1 5 g 97.5 [degF] 67 /min 120 mm[Hg] 70 mm[Hg] ANGELA Scales [facility] [email or web address] [facility] 3 11:12:22 Date Recorded Body height Body mass index (BMI) Body weight Body temperature Heart rate Systolic blood pressure Diastolic blood pressure Provider Name and Address Organization Details Last Updated DateTime 3 162.56 cm 23.3 kg/m2 33117.5 6 g 97.7 [degF] 73 /min 120 mm[Hg] 84 mm[Hg] ANGELA Scales [facility] [email or web address] [facility] 3 10:46:22 Social History Question Answer Notes LastModified by Organization Details LastModified Time Tobacco Smoking Status Never Smoker ANGELA Lopes [facility] [email or web address] [facility] 07/25/2022 13:58:41 Do You Have An Advance Directive? Yes Patient To Bring Copy In For Chart. [id number] Information not available 06/12/2022 What Is Your Level Of Alcohol Consumption? Occasional Small Glass Of Wine [id number] Information not available 06/12/2022 Do You Wear A Helmet When Biking? No Does Not Bike Information not available 07/25/2022 Are You Blind Or Do You Have Difficulty Seeing? No Information not available 07/25/2022 What Is Your Level Of Caffeine Consumption? Moderate 2 Cups Coffee Daily And A Cup Of Tea Daily [id number] Information not available 06/12/2022 How Much Tobacco Do You Chew? None [id number] Information not available 06/12/2022 In The 14 Days Before Symptom Onset, Have You Had Close Contact With A Laboratory-confi rmed COVID-19 While That Case Was Ill? No Information not available 07/25/2022 In The 14 Days Before Symptom Onset, Have You Had Close Contact With A Person Who Is Under Investigation For COVID-19 While That Person Was Ill? No Information not available 07/25/2022 Are You Currently Employed? No [email or web address] Information not available 09/03/2022 Are You Deaf Or Do You Have Serious Difficulty Hearing? No Information not available 07/25/2022 What Type Of Diet Are You Following? REGULAR [id number] Information not available 06/12/2022 Which Illicit Or Recreational Drugs Have You Used? None Information not available 07/25/2022 Do You Or Have You Ever Used E-cigarettes Or Vape? Never Used Electronic Cigarettes Information not available 07/25/2022 What Is The Highest Grade Or Level Of School You Have Completed Or The Highest Degree You Have Received? [id number] Information not available 07/25/2022 What Is Your Occupation? Retired Information not available 07/25/2022 Have There Been Any Changes To Your Family Or Social Situation? No Information not available 07/25/2022 What Is The Fluoride Status Of Your Home? Unknown Information not available 07/25/2022 Are There Any Guns Present In Your Home? No Information not available 07/25/2022 Do You Use Insect Repellent Routinely? No Information not available 07/25/2022 Where Do You Live? SingleLevelHouse Information not available 07/25/2022 Do You Have A Medical Power Of Curriculum Specialist? Yes Information not available 07/25/2022 What Was The Date Of Your Most Recent Tobacco Screening? 03/13/2023 [email or web address] Information not available 03/13/2023 Have You Ever Been Counseled For Unhealthy Alcohol Use? No Information not available 07/25/2022 Do You Have Any Pets? Yes Information not available 07/25/2022 What Is Your Relationship Status? [id number] Information not available 06/12/2022 Do You Use Your Seat Belt Or Car Seat Routinely? Yes Information not available 07/25/2022 Do You Have Smoke And Carbon Monoxide Detectors In Your Home? Yes Information not available 07/25/2022 Are You Passively Exposed To Smoke? No Information not available 07/25/2022 Do You Or Have You Ever Used Smokeless Tobacco? Never Used Smokeless Tobacco [id number] Information not available 06/12/2022 Are There Any Smokers In Your House? No Information not available 07/25/2022 How Much Tobacco Do You Smoke? No [id number] Information not available 06/12/2022 What Types Of Sporting Activities Do You Participate In? None Information not available 07/25/2022 Do You Feel Stressed (tense, Restless, Nervous, Or Anxious, Or Unable To Sleep At Night)? [id number] Information not available 07/25/2022 Do You Use Any Illicit Or Recreational Drugs? No Information not available 07/25/2022 Do You Use Sunscreen Routinely? No Information not available 07/25/2022 Has Tobacco Cessation Counseling Been Provided? No Not Needed-ne aida Smoked Information not available 07/25/2022 How Many Years Have You Smoked Tobacco? 0 Information not available 07/25/2022 Have You Recently Traveled Abroad? No Information not available 07/25/2022 Do You Have Any Dietary Restrictions? No Information not available 07/25/2022 Do You Or Have You Ever Used Any Other Forms Of Tobacco Or Nicotine? No Information not available 07/25/2022 Sex: Female Functional Status Question Answer Note LastModified by Organizat ion Details LastModified Time Do you have difficulty walking or climbing stairs? No Information not available 07/25/2022 Do you have transportation difficulties? No Information not available 07/25/2022 Are you able to walk? YESWOREST Information not available 07/25/2022 Do you have difficulty doing errands alone? No Information not available 07/25/2022 Are you able to care for yourself? Yes Information n ot available 07/25/2022 Do you have difficulty dressing or bathing? No Information not available 07/25/2022 What is your exercise level? Moderate stretch and active with dog [id number] Information not available 06/12/2022 Mental Status Question Answer Note LastModified by Organization D etails LastModified Time Do you have difficulty concentrating, remembering or making decisions? No Information no t available 07/25/2022 Family History Relationship Description Onset Age of this Age Resolved Age Notes LastModified by Organization Details LastModified Time Father Heart disease [id number] Not available 06/12/2022 04:44:20 Mother Family history of malignant neoplasm cyahl Not available 2022 13:58:37 Mother Hypertensive disorder [id number] Not available 06/12/2022 04:44:20 Medical History Condition Response NERVE DISEASE N BLINDNESS N RHEUMATIC FEVER N KIDNEY STONES N BLADDER PROBLEMS N MRSA N OTHER # 1 Y POLIO N LUNG DISEASE/DISORDER N RADIATION / CHEMOTHERAPY N COPD N Other # 2 Y BLOOD DISEASES N SURGERY N EAR OR HEARING PROBLEMS N MUMPS N BOWEL PROBLEMS N DEPRESSION (INCLUDING POST ) N STROKE/TIA N ULCERS N BENIGN PROSTATIC HYPERPLASIA N MEASLES N MYOCARDIAL INFARCTION N OBESITY N GERD/NAUSEA Y ANEURYSM N URINARY/BLADDER/KIDNEY PROBLEMS N CORONARY ARTERY DISEASE (CAD) N ADDICTION CONCERNS N Impotence N ENDOMETRIOSIS N USE OF BLOOD THINNERS N SKIN PROBLEMS N GASTROINTESTINAL DISORDER N PERIPHERAL VASCULAR DISEASE N MUSCLE,JOINT OR BONE PROBLEMS N GASTROINTESTINAL BLEEDING N BLOOD CLOTS N ASTHMA N CATARACTS N ERECTILE DYSFUNCTION N VARICOSITIES N GI PROBLEMS N Low Testosterone N INFERTILITY N AIDS/HIV N CHEMOTHERAPY / RADIATION N LIVER DISEASE N MALE HYPOGONADISM N HYPERTENSION N Deficiency Y ANXIETY DISORDER Y BLOOD TRANSFUSION N ANEMIA/BLOOD DISORDER N CHRONIC EAR INFECTIONS N BRONCHITIS N TUBERCULOSIS N GLAUCOMA N FOOT PROBLEM N DIVERTICULITIS N SLEEP APNEA N CHICKENPOX N INFECTIOUS DISEASE N PROSTATE N HEART ARRHYTHMIA N INSOMNIA N HIGH CHOLESTEROL / HYPERLIPIDEMIA Y EYE PROBLEMS N HYPERTHYROIDISM N NEUROLOGICAL PROBLEMS N EDEMA N CHRONIC PAIN SYNDROME N HYPOTHYROIDISM N CONSTIPATION N CAROTID BLOCKAGE N BACK / NECK PROBLEMS Y HAVE YOU BEEN HOSPITALIZED OR SEEN IN [facility] IN THE PAST YEAR ? N ATHEROSCLEROSIS N BREAST PROBLEMS N DIALYSIS N ECZEMA N OSTEOPOROSIS Y ARTHRITIS Y NO SIGNIFICANT PAST MEDICAL HISTORY N APPENDICITIS N DIABETES, TYPE N BAD TEETH N ENT N HEARTBURN / REFLUX Y AUTISM SPECTRUM DISORDER (ASD) N HEPATITIS / LIVER DISEASE N GOUT N SLEEP DISORDER N ALZHEIMER'S DISEASE N Brain Problems N DEMENTIA N HERPES N SEIZURES/EPILEPSY N HEADACHES/MIGRAINES N VASCULAR DISEASE N PACEMAKER N Blood Disorder N DIZZINESS N HEART DISEASE/HEART PROBLEMS N KIDNEY DISEASE N MULTIPLE SCLEROSIS N CANCER: SPECIFY N CARDIAC ARRHYTHMIA N ATRIAL FIBRILLATION N Gall Stones N PULMONARY EMBOLISM N AUTOIMMUNE DISEASE N Gynecological History Statement/Question Response Date of Last Pap 05/15/2018 Date of Last Mammogram 05/31/2020 Date of Last Colonoscopy Most Recent Bone Density Obstetrics History GPAL:G 2 P 2 0 0 0 Type Value Full Term 2 Total 2 Immunizations Vaccine Type Date Status Note Provider Nam e and Address Organization Details Recorded Time COVID-19, mRNA, LNP-S, PF, 30 mcg/0.3 mL dose 1 completed Not Available [facility] 02/14/2023 22:47:58 COVID-19, mRNA, LNP-S, PF, 10 mcg/0.2 mL dose, soniya-sucrose 2 completed Not Available [facility] 02/14/2023 22:47:58 Influenza, high-dose, quadrivalent, PF 1 completed Not Available [facility] 02/14/2023 22:47:58 COVID-19, mRNA, LNP-S, PF, 30 mcg/0.3 mL dose 1 completed Not Available [facility] 02/14/2023 22:47:58 COVID-19, mRNA, LNP-S, PF, 30 mcg/0.3 mL dose 1 completed Not Available [facility] 02/14/2023 22:47:58 Influenza, high-dose, quadrivalent, PF 0 completed Not Available [facility] 02/14/2023 22:47:58 Influenza, high-dose, trivalent, PF 9 completed Not Available [facility] 02/14/2023 22:47:58 zoster recombinant 9 completed Not Available [facility] 02/14/2023 22:47:58 zoster recombinant 9 completed Not Available [facility] 02/14/2023 22:47:58 Influenza, high-dose, trivalent, PF 5 completed Not Available [facility] 02/14/2023 22:47:58 zoster live 3 completed Not Available [facility] 02/14/2023 22:47:58 pneumococcal polysaccharide PPV23 0 completed Not Available [facility] 02/14/2023 22:47:58 Influenza, high-dose, trivalent, PF 8 completed Not Available [facility] 02/14/2023 22:47:58 Pneumococcal conjugate PCV 13 8 completed Not Available [facility] 02/14/2023 22:47:58 Influenza, high-dose, trivalent, PF 7 completed Not Available [facility] 02/14/2023 22:47:58 Influenza, high-dose, trivalent, PF 6 completed Not Available [facility] 02/14/2023 22:47:58 Influenza, split virus, trivalent, PF 4 completed Not Available [facility] 02/14/2023 22:47:58 Past Encounters Encounter ID Performer Location Encounter Start Date Encounter Closed Date Diagnosis/Indication Diagnosis SNOMED-CT Code Diagnosis ICD10 Code Diagnosis Note [id number] Robert Ramey MD [facility] Internal Med [place] [address], [place] [address] 07/25/2020 00:00:00 08/05/2020 14:29:41 [id number] Robert Ramey MD [facility] Internal Med [place] [address] [place] [address] 11/28/2020 00:00:00 12/18/2020 15:26:38 [id number] Robert Ramey MD [facility] Internal Med [place] [address] [place] [address] 03/27/2021 00:00:00 04/13/2021 15:10:03 [id number] Robert Ramey MD [facility] Internal Med [place] [address] [facility] [place] [address] 07/24/2021 00:00:00 08/21/2021 09:45:14 [id number] Robert Ramey MD [facility] Internal [place] [address] [place] [address] y , [place] [address] 09/11/2021 00:00:00 09/29/2021 16:06:00 [id number] Robert Ramey MD [facility] Internal [place] [address] [place] [address] [place] [address] 11/27/2021 00:00:00 11/27/2021 15:02:19 [id number] Travis Randhawa MD [facility] [place] [address] [place] [address] 01/30/2022 00:00:00 01/30/2022 16:20:33 [id number] Robert Ramey MD [facility] Internal [place] [address] [place] [address] [place] [address] 03/14/2022 00:00:00 03/15/2022 22:06:59 [id number] Robert Ramey MD [facility] Internal [place] [address] [place] [address] y , [place] [address] 03/21/2022 00:00:00 03/21/2022 19:11:50 [id number] Travis Randhawa MD [facility] [place] [address] [place] [address] 05/07/2022 00:00:00 05/08/2022 06:35:19 [id number] Robert Ramey MD [facility] Internal [place] [address] [facility] [place] [address] 05/30/2022 00:00:00 06/01/2022 21:56:37 [id number] Robert Ramey MD [facility] Internal [place] [address] [place] [address] y , [place] [address] 07/25/2022 13:55:00 07/25/2022 14:36:00 Anxiety 98491861 F41.9 Osteoarthritis 394984539 M19.90 Gastroesop hageal reflux disease 685601707 K21.9 Pure hypercholesterolemia 577553830 E78.00 [id number] Robert Ramey MD [facility] Internal [place] [address] [place] [address] y , [place] [address] 08/15/2022 11:06:11 08/15/2022 12:25:07 Abnormal weight 43436222 R63.4 [id number] Robert Ramey MD [facility] Internal [place] [address] [place] [address] , [place] [address] 09/03/2022 10:45:24 09/03/2022 11:34:09 Adult health examination 229217944 Z00.00 Screening for disorder 795162111 Z13.9 Osteopenia 728892344 M85 .80 Anxiety 71195625 F41.9 [id number] Robert Ramey MD [facility] Internal [place] [address] [place] [address] , [place] [address] 11/21/2022 13:54:20 11/21/2022 14:37:22 Pure hypercholesterolemia 746763374 E78.00 Gastroesop hageal reflux disease 951339233 K21.9 Osteopenia 986511783 M85 .80 Vitamin D deficiency 347 38741 E55.9 Anxiety 22512546 F41.9 [id number] Robert Ramey MD [facility] Internal [place] [address] [place] [address] [place] [address] 01/30/2023 10:44:44 01/30/2023 12:16:50 Jaw pain 593009651 R68.84 Diarrhea 90474218 R19.7 Fatigue 21214358 R53.83 Low back pain 895301717 M54.50 Abdominal pain 99061086 R10.9 [id number] [facility] [place] [address] [facility] [place] [address] 03/13/2023 10:40:52 03/13/2023 11:48:36 Anxiety 60090052 F41.9 Osteoarthritis 998055265 M19.90 Diarrhea 27374393 R19.7 Gastroesop hageal reflux disease 059658817 K21.9 Pure hypercholesterolemia 953519882 E78.00 Health Concerns Section Related Observation LastModified by Organization Detai ls LastModified Time None Recorded Concern Status LastModified by Organization Details LastModified Time None Recorded Advance Directives Directive Y: Patient to bring copy in for chart. Payers Encounter Date Sequence Insurance Name Policy Number Policy Jones Covered Member ID Jones Member ID Guarantor Name 08/15/2022 1 [employer] (MEDICARE REPLACEMENT PPO) [id number] 1 Lucia L Roopa [id number] Lucia L Roopa 09/03/2022 1 [employer] (MEDICARE REPLACEMENT PPO) [id number] 1 Lucia L Roopa [id number] Lucia L Roopa 11/21/2022 1 [employer] (MEDICARE REPLACEMENT PPO) [id number] 1 Lucia L Roopa [id number] Lucia L Roopa 01/30/2023 1 [employer] (MEDICARE REPLACEMENT PPO) [id number] 1 Lucia L Roopa [id number] Lucia L Roopa 03/13/2023 1 [employer] (MEDICARE REPLACEMENT PPO) [id number] 1 Lucia L Roopa [id number] Lucia L Roopa Notes Date Note Type Note Provider Name and Address Organization Details Recorded Time 08/15/2022 text/html anxious not eati ng worried about a lot of things lost about 10 lb Robert Ramey MD [address] [facility], [facility] [address], [place], [address], [facility] [email or web address] 08/17/2022 16:03:34 09/03/2022 text/html she states that she is feeling better we are deescalating the Lexaproosteopenia in Prolia DEXA Robert Ramey MD [address], [place], [address], [employer] 09/07/2022 16:01:30 11/21/2022 text/html GERD upper endos copy nothing suspicious she is continuing to take [id number]-digiqau Pepcid. Osteopenia Prolia shots no side effects anxiety doing fine alprazolam she is now down to 5 mg on the generic Lexapro. Dyslipidemia Try to follow low-fat diet no side effects from the atorvastatin low vitamin-D she is on supplementation overall she is doing well Robert Ramey MD [address], [place], [address], [employer] 11/21/2022 14:48:47 01/30/2023 text/html She has had some jaw pain I believe she did see the dentist recentlySome fatigueLoose stools for a couple weeks to maybe a month with no blood maybe a twinge of pain but it is not a predominant feature no mucus that is consistent does not have well waterAnxiety about the same Robert Ramey MD [address], [place], [address], [employer] [facility] [employer] 01/30/2023 21:42:52 03/13/2023 text/html GERD upper endos copy nothing suspicious she is continuing to take nqsi-mhd-czwpcpa Pepcid. Osteopenia Prolia shots no side effects anxiety doing fine alprazolam she is now down to 5 mg on the generic Lexapro. Dyslipidemia Try to follow low-fat diet no side effects from the atorvastatin low vitamin-D she is on supplementation overall she is doing well lab problems with the low back. She continues to have some problems intermittently with loose stool Robert Ramey MD [address], [place], [address], [employer] [facility] [employer] 03/13/2023 14:10:24 OBGyn Episode No OBEpisode recorded.
--- OUTSIDE RECORDS SUMMARY | 2024-08-06 06:37 | XMS_ITS | Continuity of Care Document ---
Author Organization [facility] Address [address] [place] [address] Phone Care Team Providers Care Pipe Setter Name Role Phone Daniele Mendez MD Unavailable [...] Date Provider Providers Copied on Encounter [facility], [address], [id number], [place] tel:[phone] [facility] No Information 7 Vanessa Sanabria. [address] [facility], [facility] [address], [place], [place], [id number] , [place]. tel:[phone] [facility], [address] [place] [address], [id number], [place] tel:[phone] [facility] No Information 7 Vanessa Sanabria. [address] [facility], [address], [place], [place], [id number] , [place]. tel: [phone] [facility], [address] [facility] [address], [place], [place], [id number], [place] [phone] [facility] No Information 200 7 Vanessa Sanabria. [address] [facility], [address], [place], [place], [id number] , [place]. tel: [phone] [facility], [address] [facility] [address], [place], [id number], [place] tel:[phone] [facility] No Information 7 Vanessa Sanabria. [address] [facility], [facility] [address], [place], [place], [id number] , [place]. tel: [phone] Office consultation, [facility], [address] [address], [place], [place], [id number], [place] [phone] [facility] No Information 5 7 Vanessa Sanabria. [address] [facility], [address] [address], [place], [place], [id number] , [place]. tel: [phone] Family History Family Member Type Diagnosis Age [...]
--- OUTSIDE RECORDS SUMMARY | 2024-08-06 06:37 | XMS_ITS | Continuity of Care Document ---
Author Organization [facility] Address [address] [place] [address] [place] [address] Phone Care Team Providers Care Sheet Metal Foreman Name Role Phone [facility] Unavailable Unavail able Alicia Saab Unavailable Unavailable Advance Directives Directive Yes / No Effective Date File Name No Information Encounters Encounter Description Practice Location Reason(s) For Visit Diagnoses Date Provider Providers Copied on Encounter [facility], [address], [place], [place], [id number], [place] tel:[phone] [facility] No Information Sep- 2-200 6 [facility] [address] [facility], [address], [place], [place], [id number] , [place]. [phone] Referring Provider: Pito Ashley MD, [facility] [place] [address] [facility], [address], [place], [address]. tel:[phone] g Provider: Alicia Saab, [address] [place] [address], [address]. tel:[phone] Family History Family Member Type Diagnosis Age At Onset No Information Payers Payer name Insurance type Covered libertarian ID Authoriza tion(s) No Information Social History [...]
--- OUTSIDE RECORDS SUMMARY | 2024-08-06 06:37 | XMS_ITS | Encounter Summary ---
Author Organization [facility] Address [address] [place] [address] Care Team Providers Care Director Of Corporate Sponsorships Name Role Phone Arie Ramey MD Primary Care Provider [phone] Encounter Details Date Type Department Care Team (Latest Contact Info) Description 05/24/2002 Outpatient Historical [facility] Chas Robin MD [address] [facility] [address] [place] [address] SCREENING MAMM-MAILG NEOPL-OTHER (Primary Dx) Social History Tobacco Use Types Packs/Day Years Used Date Smoking Tobacco: Never Assessed Comments Unknown Sex and Gender Information Value Date Recorded Sex Assigned at Not on file Legal Sex 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
--- OUTSIDE RECORDS SUMMARY | 2024-08-06 06:37 | XMS_ITS | Clinical Summary ---
Author Organization [facility] Address [address] [place] [address] Care Team Providers Care Manufacturing Leader Name Role Phone Arie Ramey MD Primary Care Provider [phone] Allergies No known active allergies Medications escitalopram 10 MG tablet Take 10 mg by mouth daily. 10/15/2019 Active atorvastatin 20 MG tablet Take 20 mg by mouth daily. 11/11/2019 Active vitamin D2, ergocalciferol, [address]174 UNITS capsule TK 1 C PO Q OTHER WK 11/29/2019 Active ALPRAZolam 0.25 MG tablet 0.25 mg nightly as needed. 01/25/2020 Active famotidine 10 MG tablet Take 10 mg by mouth 2 (two) times daily. Active RESTASIS 0.05 % ophthalmic emulsion Place 1 drop into both eyes 2 (two) times daily. 05/03/2020 Active denosumab (PROLIA) 60 MG/ML injection 1 mL. Acti ve fexofenadine 180 MG tablet Take 180 mg by mouth. Active pseudoephedrine 30 MG tablet Take 30 mg by mouth. 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 Gender Identity Not on file Sexual Orientation Not on file Last Filed Vital Signs Vital Sign Reading Time Taken Comments Blood Pressure 117/64 05/16/2020 9:07 AM BEE ROBBER Pulse 55 05/16/2020 9:07 AM BEE ROBBER Temperature 36 C (96.8 F) 05/16/2020 9:07 AM BEE ROBBER Respiratory Rate 18 05/16/2020 9:07 AM BEE ROBBER Oxygen Saturation 100% 05/16/2020 9:07 AM BEE ROBBER Inhaled Oxygen Concentration - - Weight 68 kg (150 lb) 05/08/2020 9:32 AM BEE ROBBER Height 162.6 cm (5' 4 ) 05/08/2020 9:32 AM BEE ROBBER Body Mass Index 25.75 05/08/2020 9:32 AM BEE ROBBER Plan of Treatment Health Maintenance Due Date Last Done Comments Colorectal Cancer Screening Colonoscopy (10 Years) 1950 Hepatitis C 1967 DTaP, Tdap and Td Vaccines ( 1 - Tdap) 1968 Annual Medicare Wellness Visit 2014 Dexa Scan (General) 2014 COVID-19 Vaccine (2023-2 5 season) 2023 RSV Immunization or 60+ Years (1 - 1-dose 75+ series) 2024 Zoster Vaccines Completed 12/29/2018, 10/13/2018, 09/30/2012 Pneumococcal Vaccine: 50+ Years Completed 11/02/2019, 10/21/2017 Meningococcal B Vaccine Aged Out No l onger eligible based on patient's age to complete this topic Meningococcal Vaccine Aged Out No misty real eligible based on patient's age to complete this topic RSV Immunizations Under 20 Months Aged Out No longer eligible b ased on patient's age to complete this topic Insurance [employer] Care Teams Manufacturing Leader Relationship Specialty Start Date End Date Arie Ramey MD [address] [place] [address] PCP - General INTERNAL MEDICINE 01/04/20
== END 2024-08-06 06:35 | disposition home or self-care (01) ==
PROVIDERS: PCP Internal Medicine; Visit Provider Nurse Practitioner Adult Health
DX: M47.812 Spondylosis without myelopathy or radiculopathy, cervical region (principal)
CPT/HCPCS: 72141

== ENCOUNTER 2024-10-07 09:52 | Emergency (ER) | payer MEDICARE, SELFPAY ==
--- NOTE | ~2024-10-07 | CT_ITS ---
EXAMINATION: CT brain wo con DATE: 10/07/2024 10:45 INDICATION: Headache and vision changes TECHNIQUE: Computed tomography (CT) of the head was performed without intravenous contrast. Sagittal and coronal reconstructions were performed. The mA was adjusted according to patient size. Iterative reconstruction technique was employed. The dose-length product was 529.67 mGy-cm. COMPARISON: head CT dated 08/06/2020 FINDINGS: No acute intracranial hemorrhage, acute infarction or abnormal extra axial fluid collection. Symmetri c prominence of the sulci and and subarachnoid spaces overlying the convexities consistent with mild age-appropriate diffuse cerebral volume loss. Ventricles are normal and symmetric. No mass/mass effec t. Mild dystrophic calcification is at the bilateral basal ganglia. Changes of bilateral intraocular lens replacement. The orbits, paranasal sinuses and mastoid air cells are normal. IMPRESSION: 1. Normal aging brain. No acute intracranial process. Reviewed, dictated and finalized at location A.
[2024-10-07 10:14] VITALS: BP 146/66; PULSE 72; RESP 16; TEMP 36.8; O2SAT 99
--- NOTE | 2024-10-07 10:15 | ED_ITS ---
HPI - Headache General Chief Complaint: Headache Stated Complaint: atypical migraines Time Seen by Provider: 10/07/24 10:07 History of Present Illness HPI Narrative: 74-year-old female history of anxiety, HLD, atypical migraines presents to the ER complaining of sudden onset of visual disturbances. Patient states that she has an aura. States the visual disturbances are transient. Denies unilateral weakness of. Patient was able to drive herself to the ER without difficulty. Denies a headache, photophobia or nausea. States that she has had similar symptoms in the past was diagnosed with the atypical migraine. Patient states that she was prescribed Fioricet which has helped in the past. Patient denies confusion. Does not torso to occasionally having difficulty finding her words. No history of CVA. Related Data Home Medications ?Medication ?Instructions ?Recorded ?Confirmed ?Last Taken ?Type alprazolam 0.25 mg tablet 0.25 mg PO PRN anxiety 12/11/19 08/25/24 05/27/23 History atorvastatin 20 mg tablet 20 mg PO DAILY 12/11/19 08/25/24 05/26/23 History denosumab 60 mg/mL subcutaneous 60 mg subcut [id number] 12/29/19 08/25/24 05/26/23 History syringe (Prolia) multivitamin 1 tablet PO DAILY 10/26/23 08/25/24 Unknown History fexofenadine 60 mg tablet (Lupe 60 mg PO Q12H 12/02/23 08/25/24 Unknown History Allergy) loperamide 2 mg capsule (Imodium 2 mg PO Q6H PRN 12/02/23 08/25/24 Unknown History A-D) famotidine 10 mg tablet (Pepcid AC) 10 mg PO DAILY 04/05/24 08/25/24 Unknown History escitalopram oxalate 5 mg tablet mg PO DAILY 04/08/24 08/25/24 Unknown History Allergies Allergy/AdvReac Type Severity Reaction Status Date / Time No Known Allergies Allergy Unknown Verified 08/25/24 13:17 Review of Systems 2 Review of Systems: All systems reviewed & are unremarkable except as noted in HPI and below PMFSH Past Medical History Medical History Lymphocytic colitis Renal insufficiency EDER positive (~2019) History of hyperlipidemia History of anxiety Surgical History Surgical History History of bladder surgery Hx of breast reduction, elective Family History Family History Mother Hypertension Cancer Father Hypertension Grandparent Cancer Alzheimers disease Social History Social History Social History: Caffeine- coffee/tea Smoking status: Never smoker Alcohol intake: current Drinks per week: 2 Alcohol use details: occasionally Substance use: never Substance use type: does not use Do You Feel Safe in your Home?: Yes Lack of Transportation: No Lack of Food: Never True Current Housing: I Have Housing Concerned About Future Housing: No Difficulty Paying Gas/Electric Bills: No Difficulty Paying for Meds: No Currently Unemployed: No Education: Associate Degree Difficulty w/ Childcare or Family Care: No Living arrangements: with family Additional living arrangements comments: lives with disabled Occupation/Education: retired Gender identity (if verbalized by the patient): Female Spiritual care concerns: No Exam 2 Const: General: healthy appearing, no acute distress and alert Nutritional Appearance: well nourished Orientation/consciousness: patient oriented x3 Limitations: no limitations HENMT: Head: normal to inspection Eyes: Conjunctivae: conjunctivae normal Pupils: Equal, round and reactive pupils present EOM: EOMs intact bilaterally Direct Ophthalmoscopy: no photophobia Resp: Effort & Inspection: normal respiratory effort Auscultation: clear to auscultation bilaterally Cardio: Rate: regular rate Rhythm: regular rhythm Skin: General skin exam: normal color Neuro: General: patient oriented x3, moves all extremities, no meningeal signs, no focal motor deficits and CN's II-XI intact bilaterally Speech: n ormal speech Gait exam (Neuro): Normal gait present Extrem: General: normal to inspection Psych: Mental Status: mental status grossly normal Affect: normal affect Attitude: cooperative Course Vital Signs Vital signs: Vital Signs Temperature 36.8 C 10/07/24 10:14 Pulse Rate 72 10/07/24 10:14 Respiratory Rate 16 10/07/24 10:14 Blood Pressure 146/66 H 10/07/24 10:14 Pulse Oximetry 99 10/07/24 10:14 Temperature 36.8 C 10/07/24 10:14 Pulse Rate 65 10/07/24 11:13 Respiratory Rate 24 H 10/07/24 11:13 Blood Pressure 97/64 L 10/07/24 11:13 Pulse Oximetry 100 10/07/24 11:13 MDM - Headache MDM Narrative Medical decision making narrative: [age] year presents to ER complaining of atypical migraine with aura. Patient states she has had these symptoms in the past. No neuro deficits on exam. The CBC was reassuring. Chemistry shows a sodium of 127, chloride 94, creatinine 1.1, GFR 48, consistent with chronic kidney disease. Patient was given headache cocktail with improvement of her symptoms. Head CT showed no acute intracranial process. He will of refer patient to PCP for further management. Rx for Fioricet given. Considered migraine, tension headache, cluster headache, CVA, TIA. Patient given explicit return to ER instructions Lab Data 10/07/24 10:27 10/07/24 10:27 Labs: Lab Results 10/07/24 Range/Units 10:27 WBC 5.8 (4.5-10.0) K/mm3 RBC 5.10 (4.2-5.4) M/mm3 Hgb 13.5 (12.0-15.0) g/dL Hct 41.7 (37.0-47.0) % MCV 81.8 (80-100) fl MCH 26.5 (26-34) pg MCHC 32.4 (32-36) g/dl RDW 14.4 (11.5-14.5) % Plt Count 326 (150-375) k/mm3 MPV 9.0 (7.4-10.4) fl Immature Gran % (Auto) 1.2 H (0-0.5) % Neut % (Auto) 58.5 (45.5-73.1) % Lymph % (Auto) 28.2 (18.3-44.2) % [place] % (Auto) 8.7 H (2.6-8.5) % Eos % (Auto) 2.4 (0-4.4) % Baso % (Auto) 1.0 (0.2-1.2) % Lymph # (Auto) 1.63 (0.9-3.2) K/mm3 [place] # (Auto) 0.5 (0.1-0.6) K/mm3 Eos # (Auto) 0.1 (0-0.3) K/mm3 Baso # (Auto) 0.1 (0.0-0.1) K/mm3 Abs Immat Gran (auto) 0.07 H (0.00-0.031) K/mm3 Absolute Neuts (auto) 3.4 (1.3-6.7) K/mm3 Absolute Nucleated RBC 0.000 (0.0-0.012) K/mm3 Nucleated RBC % 0.0 (0.0-0.2) % Sodium 127 L (137-145) mmol/L Potassium 3.7 (3.4-5.0) mmol/L Chloride 94 L (98-107) mmol/L Carbon Dioxide 24 (22-30) mmol/L Anion Gap 9 (4-12) mmol/L BUN 12 (7-17) mg/dL Creatinine 1.11 H (0.7-1.0) mg/dL Estim Creat Clear Calc 36 ml/min Estimated GFR 48 L (59 - ) Glucose 114 H (65-110) mg/dL Calcium 9.5 (8.4-10.2) mg/dL Total Bilirubin 0.7 (0.2-1.3) mg/dL AST 32 (14-36) U/L ALT 21 (6-35) U/L Alkaline Phosphatase 73 (38-126) U/L Total Protein 7.1 (6.3-8.2) g/dL Albumin 4.1 (3.5-5.1) g/dL Urine Color Yellow (Yellow) Urine Appearance Clear (Clear) Urine pH 6.5 (5.0-9.0) Ur Specific [place] 1.018 (1.001-1.035) Urine Protein Negative (Negative) mg/dL Urine Glucose (UA) Negative (Negative) mg/dL Urine Ketones Trace H (Negative) mg/dL Ur Blood (Man) 2+ H (Negative) Urine Nitrate Negative (Negative) Urine Bilirubin Negative (Negative) Urine Urobilinogen 0.2 (<2.0) mg/dL Add Ur Microanalysis Reviewed Leukocyte Esterase Rfl 1+ H (Negative) TONYA/UL Urine RBC 11-20 H (0-2) /hpf Urine WBC 0-5 (0-3) /hpf Ur Squamous Epith Cells None seen (Few) /hpf Urine Bacteria None seen /hpf Urine Casts 0-2 Discharge Plan Discharge Clinical Impression: Migraine with aura Patient Disposition: Home Condition: Stable Instructions: Antibiotic Form, Migraine Headache (ED) Patient Language: Finnish Prescriptions: New tofojlfsjd-lrljhekudzyaz-qvwr [Fioricet] 50-300-40 mg capsule 1 cap PO Q8H PRN (Reason: pain) Qty: 30 0RF No Action multivitamin [One A Day Vitamin] Tablet 1 tablet PO DAILY Prolia 60 mg/mL syringe 60 mg SUB-Q [id number] fexofenadine [Lupe Allergy] 60 mg tablet 60 mg PO Q12H loperamide [Imodium A-D] 2 mg capsule 2 mg PO Q6H PRN famotidine [Pepcid AC] 10 mg tablet 10 mg PO DAILY escitalopram oxalate 5 mg tablet PO DAILY atorvastatin 20 mg tablet 20 mg PO DAILY alprazolam 0.25 mg tablet 0.25 mg PO PRN methylprednisolone [Medrol (Randall)] 4 mg tablets,dose pack See Rx Instructions PO PER PKG DIR Qty: 21 0RF Rx Instructions: PO PER PKG DIR Follow-up/Referrals: Tanvir,MD Arie [Primary Care Provider] - Time of Disposition: 11:53
--- NOTE | 2024-10-07 10:17 | ECG_ITS ---
Test Date: 2024-10-07 11:26:32 Measurements Intervals [place] Rate: 61 P: 78 WA: 169 QRS: 36 QRSD: 102 T: 25 QT: 419 QTc: 423 Interpretive Statements SINUS RHYTHM WITH ATRIAL AND VENTRICULAR PREMATURE COMPLEXES BORDERLINE ST-T WAVE ABNORMALITY- ANT/INF LEADS BASELINE ARTIFACT- I, II, III, AVR, AVL, AVF, V1, V5 BORDERLINE ECG No previous ECG available for comparison Electronically Signed On 10-07-2024 12:03:40 CDT by Ulices Garcia D.O.
[2024-10-07] MEDS: diphenhydrAMINE HCl INJ 50 MG/ML VIAL 25 MG IV PUSH (10:37)
[2024-10-07] MEDS: METOCLOPRAMIDE HCL INJ 10 MG/2 ML VIAL IV PUSH (10:37)
[2024-10-07] MEDS: SODIUM CHLORIDE 0.9% IV 1,000 ML 999 ML IV CONT (10:37)
[2024-10-07] MEDS: KETOROLAC 30 MG/ML VIAL (*BKC) IV PUSH (10:37)
[2024-10-07 10:38] LABS: Basophils Absolute Auto 0.1 K/mm3 (0.0-0.1); Eosinophils Absolute Auto 0.1 K/mm3 (0-0.3); Eosinophils Percent Auto 2.4 % (0-4.4); Hematocrit 41.7 % (37.0-47.0); Hemoglobin 13.5 g/dL (12.0-15.0); Immature Granulocyte Absolute 0.07 K/mm3 (0.00-0.031); Immature Granulocyte Percent A 1.2 % (0-0.5); Lymphocytes Absolute Auto 1.63 K/mm3 (0.9-3.2); Lymphocytes Percent Auto 28.2 % (18.3-44.2); Mean Corpuscular HGB Conc 32.4 g/dl (32-36); Mean Corpuscular Hemoglobin 26.5 pg (26-34); Mean Corpuscular Volume 81.8 fl (80-100); Monocytes Absolute Auto 0.5 K/mm3 (0.1-0.6); Monocytes Percent Auto 8.7 % (2.6-8.5); Neutrophils Absolute Auto 3.4 K/mm3 (1.3-6.7); Neutrophils Percent Auto 58.5 % (45.5-73.1); Platelet Count Result 326 k/mm3 (150-375); Red Cell Distribution Width 14.4 % (11.5-14.5); White Blood Count 5.8 K/mm3 (4.5-10.0)
[2024-10-07 10:49] LABS: Alanine Aminotransferase 21 U/L (6-35); Albumin Level 4.1 g/dL (3.5-5.1); Alkaline Phosphatase 73 U/L (38-126); Anion Gap 9 mmol/L (4-12); Aspartate Amino Transferase 32 U/L (14-36); Bilirubin,Total 0.7 mg/dL (0.2-1.3); Blood Urea Nitrogen 12 mg/dL (7-17); Calcium 9.5 mg/dL (8.4-10.2); Carbon Dioxide 24 mmol/L (22-30); Chloride 94 mmol/L (98-107); Estimated CRCL calculation 36 ml/min; Estimated Glomerular Filt Rate 48; Glucose 114 mg/dL (65-110); Potassium 3.7 mmol/L (3.4-5.0); Sodium 127 mmol/L (137-145); Total Protein 7.1 g/dL (6.3-8.2)
[2024-10-07 11:06] LABS: Add Urine Microscopic? YES; Appearance Urine Clear (Clear); Bacteria Urine None Seen /hpf; Bilirubin Urine Negative (Negative); Blood Urine 2+ (Negative); Color Urine Yellow (Yellow); Glucose Urine UA Negative (Negative); Ketones Urine Trace mg/dL (Negative); Leukocyte Esterase Ur 1+ LEU/UL (Negative); Need Manual Microscopic Reviewed; Nitrate Urine Negative (Negative); Non Pathogenic Casts 0-2; Protein Urine Negative (Negative); Specific Grav Ur 1.018 (1.001-1.035); Squamous Epithelial Cell Urine None Seen /hpf (Few); Urobilinogen Urine 0.2 mg/dL (<2.0); WBC Urine 0-5 /hpf (0-3); pH Urine 6.5 (5.0-9.0)
[2024-10-07] MEDS: dexAMETHasone SOD PHOS INJ 10 MG/ML 1 ML VIAL IV PUSH (11:12)
[2024-10-07] MEDS: MAGNESIUM SULF 2 GM/WATER 50ML 2 GM/50 ML BAG IVPB (11:12)
[2024-10-07 11:13] VITALS: BP 97/64; PULSE 65; RESP 24; O2SAT 100
--- NOTE | 2024-10-07 11:19 | PC.NURSE ---
Bedside report received from Eduar RN-patient resting commfortably
--- NOTE | 2024-10-07 11:35 | ECG_ITS ---
Test Date: 2024-10-07 11:35:30 Measurements Intervals [place] Rate: 63 P: 54 NE: 156 QRS: -42 QRSD: 110 T: 13 QT: 421 QTc: 433 Interpretive Statements SINUS RHYTHM LEFT AXIS DEVIATION INCOMPLETE RIGHT BUNDLE BRANCH BLOCK DELAYED PRECORDIAL R/S TRANSITION BORDERLINE ECG Compared to ECG 10/07/2024 11:26:32 NO SIGNIFICANT CHANGE Electronically Signed On 10-07-2024 12:55:39 CDT by Ulices Garcia D.O.
[2024-10-07 12:03] VITALS: BP 98/60; PULSE 70; RESP 23; O2SAT 98
== END 2024-10-07 12:04 | disposition home or self-care (01) ==
PROVIDERS: Emergency Provider Nurse Practitioner Family; PCP Internal Medicine
DX: G43.109 Migraine with aura, not intractable, without status migrainosus (principal); E78.5 Hyperlipidemia, unspecified; N28.9 Disorder of kidney and ureter, unspecified; F41.9 Anxiety disorder, unspecified; Z79.899 Other long term (current) drug therapy; Z79.620 Long term (current) use of immunosuppressive biologic; I45.10 Unspecified right bundle-branch block; R94.31 Abnormal electrocardiogram [ECG] [EKG]
CPT/HCPCS: 36415; 70450; 80053; 81001; 85025; 87086; 93005; 96365; 96366; 96375; 99284; J1100; J1200; J1885; J2765; J3475; J7030

== ENCOUNTER 2024-10-28 08:26 | Outpatient (CLI) | payer MEDICARE, SELFPAY ==
--- NOTE | ~2024-10-28 | DEXA_ITS ---
Bone Density Report Name: DELANO ZHONG Age: 74 Sex: Female Ethnicity: White Date of : 1950 Indication: osteopenia; monitoring treatment; height loss; Referring Provider: Arie Allen Study: Bone densitometry was performed. Exam Date: October 28, 2024 Accession number: [id number] Bone Density: Region BMD T-score Z-score Classification AP Spine(L1-L4) 1.133 0.8 3.2 Normal Femoral Neck (Left) 0.576 -2.5 -0.4 Osteoporosis Total Hip (Left) 0.829 -0.9 0.9 Normal Femoral Neck (Right) 0.572 -2.5 -0.4 Osteoporosis Total Hip (Right) 0.824 -1.0 0.8 Normal Total Hip Mean 0.827 -1.0 0.9 Normal World Health Organization criteria for BMD impression classify patients as: Normal (T-score at or above -1.0), Osteopenia (T-score between -1.0 and -2.5), or Osteoporosis (T-score at or below -2.5). 10-year Fracture Risk: FRAX not reported because: Some T-score for Spine Total or Hip Total or Femoral Neck at or below -2.5 Treated for osteoporosis Previous Exams: -- Region Exam Age BMD T-score BMD Change BMD Change Date g/cm2 vs Baseline vs Previous -- AP Spine (L1-L4) 10/28/2024 74 1.133 0.8 20.2%* 20.2%* 02/04/2017 66 0.942 -1.0 Total Hip(Left) 10/28/2024 74 0.829 -0.9 7.1%* 7.1%* 02/04/2017 66 0.774 -1.4 Total Hip(Right) 10/28/2024 74 0.824 -1.0 5.7%* 5.7%* 02/04/2017 66 0.780 -1.3 -- *Denotes significance at 95% confidence level, LSC for AP Spine = 0.022 g/cm2, LSC for Total Hip = 0.027 g/cm2 Clinical Information Provided by Patient: Is being treated for osteoporosis Has used the following medications: Prolia (i.e. denosumab), Vitamin D, Calcium Patient maximum height was 65 Menopause Age: 56 No regular weight bearing exercise Onset of menses at age 12 Number of children 2 Impression: The patient has osteoporosis, based on the Left Femoral Neck T-score. No significant bone loss was observed. Discussion: PATIENT UNDER TREATMENT WITH NO SIGNIFICANT BMD LOSS SINCE LAST EXAM. In an untreated patient, BMD typically declines with age. A lack of decline or gain is usually a sign that treatment is efficacious and fracture risk is reduced. It is important to ask patients whether they are taking their medications and to encourage continued and appropriate compliance with their osteoporosis therapies to reduce fracture risk. It is also important to review their risk factors and encourage appropriate calcium and vitamin D intakes, exercise, fall prevention and other lifestyle measures. Follow-Up: Consider a repeat BMD and Vertebral Fracture Assessment (VFA) exam in 2 years or sooner if medically necessary, to reassess this patient's status. Reported by: ASAD on 10/28/2024 9:15:00 AM. Reviewed, dictated and finalized at location A.
== END 2024-10-28 08:27 | disposition home or self-care (01) ==
PROVIDERS: PCP Internal Medicine; Visit Provider Internal Medicine
DX: M81.0 Age-related osteoporosis without current pathological fracture (principal); Z78.0 Asymptomatic menopausal state
CPT/HCPCS: 77080

== ENCOUNTER 2025-01-05 14:33 | Outpatient (CLI) | payer MEDICARE, SELFPAY ==
--- OUTSIDE RECORDS SUMMARY | 2005-09-22 19:00 | XMS_ITS | Continuity of Care Document ---
Author Organization Formerly [facility] Address [address] [place] [address] [place] [address] Phone Care Team Providers Care Licensed Final Expense Agents Name Role Phone [facility] Unavailable Unavail able Alicia Saab Unavailable Unavailable Advance Directives Directive Yes / No Effective Date File Name No Information Encounters Encounter Description Practice Location Reason(s) For Visit Diagnoses Date Provider Providers Copied on Encounter [facility], [address], [place], [place], [id number], [place] tel:[phone] [facility] No Information Sep- 2-200 6 [facility] [employer] [address] [facility], [address], [place], [place], [id number] , [place]. [phone] Referring Provider: Pito Ashley MD, [facility] [place] [address] [facility], [address], [place], [address]. tel:[phone] g Provider: Alicia Saab, [address] [place] [address], [address]. tel:[phone] Family History Family Member Type Diagnosis Age At Onset No Information Payers Payer name Insurance type Covered republican ID Authoriza tion(s) No Information Social History Type Description Quantity Date Captured Comments Sex Female Smoking Status No Information Chief Complaint And Reason For Visit No Information Reason For Referral Reason For Referral No Information History Of Present Illness Encounter Date Complaint History Of Prese nt Illness No Information Functional Status Date Functional Assessmen t No Information Instructions Date Instruction Additional Infor mation No Information Assessments Type Assessment Date No Information Patient Care Teams Name Effective Dates (start - stop) Status Members No Information
--- OUTSIDE RECORDS SUMMARY | 2006-07-18 05:01 | XMS_ITS | Continuity of Care Document ---
Author Organization [facility] Address [address] [place] [address] Phone Care Team Providers Care Store Administrative Assistant Name Role Phone Daniele Mendez MD Unavailable Unavailable Procedures Procedure Date Postop followup visit Postop followup visit X-ray exam of wrist, complete 7 Postop followup visit Application of forearm cast Cast Supplies, Short Arm, Adult 11yrs +, Fiberglass X-ray exam of wrist, 2 views Postop followup visit X-ray exam of wrist, 2 views Office consultation, moderate 7 Clsd trtmnt distal rdl Fx w/manip Advance Directives Directive Yes / No Effective Date File Name No Information Encounters Encounter Description Practice Location Reason(s) For Visit Diagnoses Date Provider Providers Copied on Encounter [facility], [address], [id number], [place] tel:[phone] [facility] No Information 7 Vanessa Sanabria. [address] [facility], [facility] [address], [place], [place], [id number] , [place]. tel:[phone] [facility], [address] [place] [address], [id number], [place] tel:[phone] [facility] No Information 7 Vanessa Sanabria. [address] [facility], [address], [place], [place], [id number] , [place]. tel: [phone] [facility], [address] [facility] [address], [place], [place], [id number], [place] [phone] [facility] No Information 200 7 Vanessa Sanabria. [address] [facility], [address], [place], [place], [id number] , [place]. tel: [phone] [facility], [address] [facility] [address], [place], [id number], [place] tel:[phone] [facility] No Information 7 Vanessa Sanabria. [address] [facility], [facility] [address], [place], [place], [id number] , [place]. tel: [phone] Office consultation, [facility], [address] [address], [place], [place], [id number], [place] [phone] [facility] No Information 5 7 Vanessa Sanabria. [address] [facility], [address] [address], [place], [place], [id number] , [place]. tel: [phone] Family History Family Member Type Diagnosis Age At Onset No Information Payers Payer name Insurance type Covered green party ID Authoriza tion(s) No Information Social History [...]
--- NOTE | ~2025-01-05 | MM_ITS ---
EXAMINATION: MM screening ben BI w sharan HISTORY: Screening TECHNIQUE: Craniocaudal and mediolateral oblique 3-D tomosynthesis images were obtained and synthetic 2-D images were generated. CAD analysis was submitted and interpreted. COMPARISON: 05/31/2020 BREAST PARENCHYMAL COMPOSITION: There are scattered areas of fibroglandular density. FINDINGS: There is no evidence of suspicious mass, calcification, or architectural distortion to suggest malignancy. There has been no suspicious interval change. IMPRESSION: 1. No mammographic evidence of malignancy. Recommend routine screening mammography in one year. BI-RADS Category 2: Benign finding(s) Reviewed, dictated and finalized at location Q. IMPRESSION: 1. No mammographic evidence of malignancy. Recommend routine screening mammogra phy in one year. BI-RADS Category 2: Benign finding(s)
--- OUTSIDE RECORDS SUMMARY | 2025-01-05 14:37 | XMS_ITS | Encounter Summary ---
Author Organization [facility] Address [address] [place] [address] Care Team Providers Care Undertaker Assistant Name Role Phone Arie Ramey MD Primary Care Provider [phone] Encounter Details Date Type Department Care Team (Latest Contact Info) Description 09/09/2007 Outpatient Historical HIS IMG-LAB [facility] Maria C Domínguez MD [address] [facility] [address] [place] [address] Other Screening Mammogram Social History Tobacco Use Types Packs/Day Years Used Date Smoking Tobacco: Never Assessed Comments Unknown Sex and Gender Information Value Date Recorded Sex Assigned at Not on file Legal Sex Female 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 [place], [place] [address] Admit Date: 09/09/2007 LUCIA BLAS Sex: F Admit Prov: MARIA C DOMÍNGUEZ Date: 1950 Primary Care Prov: ARIE RAMEY CMRN: [id number] [id number] [facility] Ordering Prov: MARIA C DOMÍNGUEZ Accession Number: [id number] Interpretation DIGITAL SCREENING MAMMOGRAM WITH COMPUTER ASSISTED [...] BROCK SUGGS 09/10/2007 09:42 Transcribed: 09/10/2007 09:42 [facility] Procedure Note Provider, Historical - 09/10/[address] [address] Admit Date: 09/09/2007 TREVINJAYNA ELYLB Lema Sex: F Admit Prov: MARIA C DOMÍNGUEZ Date: 1950 Primary Care Prov: ARIE RAMEY CMRN: [id number] [facility] [id number] [facility] Ordering Prov: MARIA C DOMÍNGUEZ [...] BROCK SUGGS 09/10/2007 09:42 Transcribed: 09/10/2007 09:42 [facility] Maria C Domínguez MD MAMMO ORDERABLES Final Result documented in this encounter Visit Diagnoses Diagnosis Other screening mammogram documented in this encounter Care Teams Undertaker Assistant Relationship Specialty Start Date End Date Arie Ramey MD [address] [place] [address] PCP - General 05/24/02 documented as of this encounter
--- OUTSIDE RECORDS SUMMARY | 2025-01-05 14:37 | XMS_ITS | Clinical Summary ---
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
--- OUTSIDE RECORDS SUMMARY | 2025-01-05 14:37 | XMS_ITS | Encounter Summary ---
Author Organization [facility] Address [address] [place] [address] Care Team Providers Care Slag Expander Name Role Phone Arie Ramey MD Primary Care Provider [phone] Encounter Details Date Type Department Care Team (Latest Contact Info) Description 08/04/2006 Outpatient Historical HIS IMG-LAB [facility] Chas Robin MD [address] [facility] [address] [place] [phone] Other Screening Mammogram (Primary Dx) Social History Tobacco Use Types Packs/Day Years Used Date Smoking Tobacco: Never Assessed Comments Unknown Sex and Gender Information Value Date Recorded Sex Assigned at Not on file Legal Sex Female 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
--- OUTSIDE RECORDS SUMMARY | 2025-01-05 14:37 | XMS_ITS | Encounter Summary ---
Author Organization [facility] Address [address] [place] [address] Care Team Providers Care Business Area Manager Name Role Phone Arie Ramey MD Primary Care Provider Encounter Details Date Type Department Care Team (Latest Contact Info) Description 09/07/2008 Outpatient Historical HIS IMG-LAB [facility] Maria C Domínguez MD [address] [facility] [address] [place] [address] Other Screening Mammogram Social History Tobacco Use Types Packs/Day Years Used Date Smoking Tobacco: Never Assessed Comments Unknown Sex and Gender Information Value Date Recorded Sex Assigned at Not on file Legal Sex Female 4:57 AM RN ONCOLOGY Gender Identity Not on file Sexual Orientation [...] AM CDT Narrative 09/12/2008 8:14 AM CDT [facility] [address] [place], [place] [address] Admit Date: 09/07/2008 LUCIA BLAS Sex: F Admit Prov: MARIA C DOMÍNGUEZ Date: 1950 Primary Care Prov: ARIE RAMEY CMRN: [id number] [id number] Ordering Prov: MARIA C DOMÍNGUEZ Accession Number: [id number] Interpretation BILATERAL FULL FIELD DIGITAL SCREENING MAMMOGRAM [...] SDJ Procedure Note Cassandra Tavarez - 09/12/2008 [id number] [place], [place] [address] Admit Date: 09/07/2008 LUCIA BLAS Sex: F Admit Prov: MARIA C DOMÍNGUEZ Date: 1950 Primary Care Prov: ARIE RAMEY CMRN: [id number] [id number] [facility] Ordering Prov: MARIA C DOMÍNGUEZ [...] mammogram documented in this encounter Care Teams Business Area Manager Relationship Specialty Start Date End Date Arie Ramey MD [address] [place] [address] PCP - General 05/24/02 documented as of this encounter
--- OUTSIDE RECORDS SUMMARY | 2025-01-05 14:37 | XMS_ITS | Clinical Summary ---
Author Organization [facility] Address [facility] [place] [address] Care Team Providers Care Soft Drink Powder Mixer Name Role Phone Arie Ramey MD Primary Care Provider [phone] Allergies No known active allergies Medications escitalopram 10 MG tablet Take 10 mg by mouth daily. 10/15/2019 Active atorvastatin 20 MG tablet Take 20 mg by mouth daily. 11/11/2019 Active vitamin D2, ergocalciferol, 18119 UNITS capsule TK 1 C PO Q [...] (03/01/2020): Added automatically from request for surgery [id number] Social History Tobacco Use Types Packs/Day Years Used Date Smoking Tobacco: Never Smokeless Tobacco: Never Alcohol Use Standard Drinks/Week Comments Yes 0 (1 standard drink = 0.6 oz pur e alcohol) Comments No Sex and Gender Information Value Date Recorded Sex Assigned at Not on file Legal Sex Female 5:53 PM BLOOD BANK LABORATORY TECHNOLOGIST Gender Identity Not on file Sexual Orientation Not on file Last Filed Vital Signs Vital Sign Reading Time Taken Comments Blood Pressure 117/64 05/16/2020 9:07 AM BLOOD BANK LABORATORY TECHNOLOGIST Pulse 55 05/16/2020 9:07 AM BLOOD BANK LABORATORY TECHNOLOGIST Temperature 36 C (96.8 F) 05/16/2020 9:07 AM BLOOD BANK LABORATORY TECHNOLOGIST Respiratory Rate 18 05/16/2020 9:07 AM BLOOD BANK LABORATORY TECHNOLOGIST Oxygen Saturation 100% 05/16/2020 9:07 AM BLOOD BANK LABORATORY TECHNOLOGIST Inhaled Oxygen Concentration - - Weight 68 kg (150 lb) 05/08/2020 9:32 AM BLOOD BANK LABORATORY TECHNOLOGIST Height 162.6 cm (5' 4) 05/08/2020 9:32 AM BLOOD BANK LABORATORY TECHNOLOGIST Body Mass Index 25.75 05/08/2020 9:32 AM BLOOD BANK LABORATORY TECHNOLOGIST Plan of Treatment Health Maintenance Due Date Last Done Comments Colorectal Cancer Screening Colonoscopy (10 Years) 1950 Hepatitis C 1967 DTaP, Tdap and Td Vaccines ( 1 - Tdap) 1968 Annual Medicare Wellness Visit 2014 Dexa Scan (General) 2014 RSV Immunization or 60+ Years (1 - 1-dose 75+ series) 2024 COVID-19 Vaccine ( - 2023-2 5 season) 2024 Zoster Vaccines Completed 12/29/2018, 10/13/2018, 09/30/2012 [...] complete this topic Insurance [employer] Care Teams Soft Drink Powder Mixer Relationship Specialty Start Date End Date Arie Ramey MD PCP - General INTERNAL MEDICINE 01/04/20
--- OUTSIDE RECORDS SUMMARY | 2025-01-05 14:37 | XMS_ITS | Encounter Summary ---
Author Organization [facility] Address [address] [place] [address] Care Team Providers Care Handle Attacher Name Role Phone Arie Ramey MD Primary Care Provider [phone] Encounter Details Date Type Department Care Team (Latest Contact Info) Description 07/15/2005 Outpatient Historical HIS IMG-LAB [facility] Chas Robin MD [address] [facility] [address] [place] [phone] Other Screening Mammogram (Primary Dx) Social History Tobacco Use Types Packs/Day Years Used Date Smoking Tobacco: Never Assessed Comments Unknown Sex and Gender Information Value Date Recorded Sex Assigned at Not on file Legal Sex Female 4:57 AM NATUROPATH Gender Identity Not on file Sexual Orientation Not on file documented as of this encounter Plan of Treatment Not on file documented as of this encounter Visit Diagnoses Diagnosis Other screening mammogram- Primary documented in this encounter Care Teams Handle Attacher Relationship Specialty [place] [address] [place] [phone] PCP - General 05/24/02 documented as of this encounter
--- OUTSIDE RECORDS SUMMARY | 2025-01-05 14:37 | XMS_ITS | Encounter Summary ---
Author Organization [facility] Address [address] [place] [address] Care Team Providers Care Touch Up Painter Name Role Phone Arie Ramey MD Primary Care Provider [phone] Encounter Details Date Type Department Care Team (Latest Contact Info) Description 06/16/2003 Outpatient Historical HIS IMG-LAB [facility] Chas Robin MD [address] [facility] [address] [place] [phone] SCREENING MAMM-MAILG NEOPL-OTHER (Primary Dx) Social History Tobacco Use Types Packs/Day Years Used Date Smoking Tobacco: Never Assessed Comments Unknown Sex and Gender Information Value Date Recorded Sex Assigned at Not on file Legal Sex Female 4:57 AM ELECTRICAL CONTROL ASSEMBLER Gender Identity Not on file Sexual Orientation Not on file documented as of this encounter Plan of Treatment Not on file documented as of this encounter Visit Diagnoses Diagnosis Other screening mammogram- Primary documented in this encounter Care Teams Touch Up Painter Relationship Specialty [place] [address] [place] [phone] PCP - General 05/24/02 documented as of this encounter
--- OUTSIDE RECORDS SUMMARY | 2025-01-05 14:37 | XMS_ITS | Clinical Summary ---
Author Organization [facility] Address [address] [place] [address] Phone Care Team Providers Care Subsurface Augmentee Operator Name Role Phone Arie Ramey MD Primary Care Provider [phone] Allergies Active Allergy Reactions Criticality Noted Date Comments Other 02/02/2020 Prochlorperazine 11/10/2019 Other reaction(s): Unknown Medications ALPRAZolam (XANAX) 0.25 MG tablet TK 1 T PO BID PRN 01/25/2020 Active atorvastatin (LIPITOR) 20 MG tablet TK 1 T PO QD 11/11/2019 Active Denosumab (Prolia) 60 MG/ML solution prefilled syringe 1 mL Active ergocalciferol (VITAMIN D2) 1.25 MG (28127 UT) capsule TK 1 C PO Q [...] (04/27/2020): Added automatically from request for surgery [id number] Vitamin D deficiency 01/28/2020 Pure hypercholesterolemia 01/28/2020 [...] MDT Gender Identity Female 03/07/2021 6:43 AM [facility] Sexual Orientation Straight 03/07/2021 6: 43 AM [facility] Last Filed Vital Signs Vital Sign Reading Time Taken Comments Blood Pressure 112/70 11/14/2021 3:13 PM CDT Pulse 72 11/14/2021 3:13 PM CDT Temperature 35.8 C (96.5 F) 11/14/2021 3:13 PM CDT Respiratory Rate - - Oxygen Saturation - - Inhaled Oxygen Concentration - - Weight 70.8 kg (156 lb) 11/14/2021 3:13 PM CDT Height 162.6 cm (5' 4) 11/14/2021 3:13 PM CDT Body Mass Index 26.78 11/14/2021 3:13 PM CDT Plan of Treatment Health Maintenance Due Date Last Done Comments COVID-19 Vaccine ( season) 2024 02/21/2021, 07/02/2020, 06/11/2020 Influenza Vaccine (#1) 2024 , 02/08/2014, 02/08/2014 Pneumococcal PPSV23/PCV13 65 + Years / Low and Medium Risk Completed 11/02/2019, 10/21/2017, 10/21/2017 Insurance [employer] Care Teams Subsurface Augmentee Operator Relationship Specialty Start Date End Date Arie Ramey MD [address] [address] PCP - General Family Medicine 12/22/19
--- OUTSIDE RECORDS SUMMARY | 2025-01-05 14:37 | XMS_ITS | Encounter Summary ---
Author Organization [facility] Address [address] [place] [address] Care Team Providers Care Echo Tech Name Role Phone Unavailable Primary Care Provider Unavailabl e Reason for Visit * Reason Onset Date Comments Appointment 10/11/2024 Encounter Details Date Type Department Care Team (Late st Contact Info) Description 10/11/2024 Telephone [facility] - Centralized Scheduling [address] [place] [id number] None, Physician Appointment Social History Tobacco Use Types Packs/Day Years Used Date Smoking Tobacco: Never Smokeless Tobacco: Never Alcohol Use Standard Drinks/Week Comments Never 0 (1 standard drink = 0.6 oz pur e alcohol) Comments Unknown Sex and Gender Information Value Date Recorded Sex Assigned at Not on file Legal Sex Female 9:57 AM CDT Gender Identity Not on file Sexual Orientation Not on file documented as of this encounter Miscellaneous Notes * Telephone Encounter - Nayeli Phoenix - 10/11/2024 3:22 PM CDT Patient called stating that she would like to cancel her appt for tomorrow documented in this encounter Plan of Treatment Not on file documented as of this encounter Visit Diagnoses Not on filedocumented in this encounter
--- OUTSIDE RECORDS SUMMARY | 2025-01-05 14:37 | XMS_ITS | Encounter Summary ---
Author Organization [facility] Address [address] [place] [address] Care Team Providers Care Preforms Laminator Name Role Phone Unavailable Primary Care Provider Unavailabl e Encounter Details Date Type Department Care Team (Late st Contact Info) Description 10/09/2024 Ophth Exam [facility] - Ophthalmology [address] [place] [address] Elmira Bedolla MD [address] [place] [address] Social History Tobacco Use Types Packs/Day Years [...]
--- OUTSIDE RECORDS SUMMARY | 2025-01-05 14:37 | XMS_ITS | Clinical Summary ---
Author Organization [facility] Address [address] [place] [address] Care Team Providers Care Gravel Truck Driver Name Role Phone Unavailable Primary Care Provider Unavailabl e Source Comments [facility],non-owned Affiliates and Associated Physician Practices is amultiple site organization consisting of ambulatory clinics and hospital sitesin [place], [place], [place]. This disclosure is being madepursuant to the Care Everywhere program and may not contain all information available regarding this patient. Last updated 18.[facility] Allergies No known active allergies Encounters Date Type Department Care Team Description 10/11/2024 Telephone [facility] - Centralized Scheduling [address] [place] [address] None, Physician Appointment 10/09/2024 1:44 AM CDT - 10/09/2024 3:54 AM CDT Emergency [facility] [address] [place] [phone] Karen Simons MD Visual disturbance Discharge Disposition: Home or Self Care 10/09/2024 Ophth Exam [facility] - Ophthalmology [address] [facility], [place] [phone] Elmira Bedolla MD 10/09/2024 Travel from Last 3 Months Social History Tobacco Use Types Packs/Day Years Used Date Smoking Tobacco: Never Smokeless Tobacco: Never Tobacco Cessation:Counseling Given: Not Answered Alcohol Use Standard Drinks/Week Comments Never 0 (1 standard drink = 0.6 oz pur e alcohol) Comments Unknown Sex and Gender Information Value Date Recorded Sex Assigned at Not on file Legal Sex Female 9:57 AM CDT Gender Identity Not on file Sexual Orientation Not on file Last Filed Vital Signs Vital Sign Reading Time Taken Comments Blood Pressure 115/89 10/09/2024 12:54 AM CDT Pulse 72 10/09/2024 12:54 AM CDT Temperature 36.8 C (98.3 F) 10/09/2024 12:54 AM CDT Respiratory Rate 18 10/09/2024 12:54 AM CDT Oxygen Saturation 99% 10/09/2024 12:54 AM CDT Inhaled Oxygen Concentration - - Weight 64.4 kg (142 lb) 10/09/2024 12:54 AM CDT Height 162.6 cm (5' 4) 10/09/2024 12:54 AM CDT Body Mass Index 24.37 10/09/2024 12:54 AM CDT Plan of Treatment Health Maintenance Due Date Last Done Comments BONE DENSITY TESTING 1949 COLON MONITORING 1949 COLONOSCOPY - COLON CA SCREENING 1949 CT COLONOGRAPHY - COLON CA SCREENING 1949 FIT - COLON CA SCREENING 1949 FLEX SIG - COLON CA SCREENING 1949 LIPID TESTING 1949 HEPATITIS C SCREENING 04/27/1967 DTAP/TDAP/TD VACCINES (1 - Tdap) 1968 PNEUMOCOCCAL VACCINE 50+ (1 of 1 - PCV) 1999 ZOSTER VACCINE (1 of 2) 1999 MAMMOGRAM 05/19/2019 05/19/2017, 12/0 09/2015, 02/24/2015, Additional history exists DEPRESSION SCREENING 04/14/2024 MEDICARE AWV CALENDAR YEAR 2024 Respiratory Syncytial Virus (RSV) Vaccine Pt: or over 60 yrs (1 - 1-dose 75+ series) 2024 COLOGUARD (AGES 45-75) - COLON CA SCREENING 09/03/2024 09/03/2021, 07/08/2018 Colorectal Cancer Screening 09/03/2024 COVID-19 VACCINE (2024- season) 2024 09/19/2021, 02/21/2021, 07/02/2020, Additional history exists INFLUENZA VACCINE (#1) 2024 , 01/23/2023, 01/26/2022, Additional history exists HEPATITIS B VACCINE Aged Out No longe r eligible based on patient's age to complete this topic HIB VACCINE Aged Out No longer eligi ble based on patient's age to complete this topic HPV VACCINE Aged Out No longer eligi ble based on patient's age to complete this topic MENINGOCOCCAL (Group B) VACCINE SHARED DECISION-MAKING Aged Out No longer eligible based on patient's age to complete this topic MENINGOCOCCAL GROUPS A/C/Y/W VACCINE Aged Out No longer eligible based on patient's age to complete this topic Insurance A[employer] MEDICARE ADV AETNA MEDICARE ADV SELF PAY NO INSURANCE Member Subscriber Plan / Payer (Ef fective for All Dates) Name:Lucia Blas Member ID:Not on file Relation to Subscriber:Not on file Name:LUCIA BLAS Subscriber ID:Not on file (Home) Address: [address] [place] [address] Payer ID:Not on file Group ID:Not on file Type:Self Pay Address: [place], [place] AETNA MEDICARE ADV SELF PAY NO INSURANCE Member Subscriber Plan / Payer (Ef fective for All Dates) Name:Roopa Lucia Member ID:Not on file Relation to Subscriber:Not on file Name:ROOPA,LUCIA Subscriber ID:Not on file (Home) Address: [address] [place] [address] Payer ID:Not on file Group ID:Not on file Type:Self Pay Address: [place], [place] AETNA MEDICARE ADV SELF PAY NO INSURANCE Member Subscriber Plan / Payer (Ef fective for All Dates) Name:Lucia Blas Member ID:Not on file Relation to Subscriber:Not on file Name:LUCIA BLAS Subscriber ID:Not on file (Home) Address: [address] [place] [address] Payer ID:Not on file Group ID:Not on file Type:Self Pay Address: [place], [place] T MEDICARE ADV SELF PAY NO INSURANCE Member Subscriber Plan / Payer (Ef fective for All Dates) Name:Lucia Blas Member ID:Not on file Relation to Subscriber:Not on file Name:LUCIA BLAS Subscriber ID:Not on file (Home) Address: [address] [place] [address] Payer ID:Not on file Group ID:Not on file Type:Self Pay Address: [place], [place] A[employer] MEDICARE ADV SELF PAY NO INSURANCE Member Subscriber Plan / Payer (Ef fective for All Dates) Name:Lucia Blsa Member ID:Not on file Relation to Subscriber:Not on file Name:LUCIA BLAS Subscriber ID:Not on file (Home) Address: [address] [place] [address] Payer ID:Not on file Group ID:Not on file Type:Self Pay Address: [place] AETNA MEDICARE ADV SELF PAY NO INSURANCE Member Subscriber Plan / Payer (Ef fective for All Dates) Name:Lucia Blas Member ID:Not on file Relation to Subscriber:Not on file Name:LUCIA BLAS Subscriber ID:Not on file (Home) Address: [address] [place] [address] Payer ID:Not on file Group ID:Not on file Type:Self Pay Address: [place], [place]
--- OUTSIDE RECORDS SUMMARY | 2025-01-05 14:37 | XMS_ITS | Encounter Summary ---
Author Organization [facility] Address [address] [place] [address] Care Team Providers Care Insulator Cutter And Former Name Role Phone Arie Ramey MD Primary Care Provider [phone] Encounter Details Date Type Department Care Team (Latest Contact Info) Description 07/02/2004 Outpatient Historical [facility] Chas Robin MD [address] [place] [phone] SCREENING MAMM-MAILG NEOPL-OTHER (Primary Dx) Social History Tobacco Use Types Packs/Day Years Used Date Smoking Tobacco: Never Assessed Comments Unknown Sex and Gender Information Value Date Recorded Sex Assigned at Not on file Legal Sex Female 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
--- OUTSIDE RECORDS SUMMARY | 2025-01-05 14:37 | XMS_ITS | Encounter Summary ---
Author Organization [facility] Address [address] [place] [address] Care Team Providers Care Director Institution Name Role Phone Arie Ramey MD Primary Care Provider [phone] Encounter Details Date Type Department Care Team (Latest Contact Info) Description 05/24/2002 Outpatient Historical [facility] Chas Robin MD [address] [facility] [address] [place] [phone] SCREENING MAMM-MAILG NEOPL-OTHER (Primary Dx) Social History Tobacco Use Types Packs/Day Years Used Date Smoking Tobacco: Never Assessed Comments Unknown Sex and Gender Information Value Date Recorded Sex Assigned at Not on file 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
== END 2025-01-05 14:34 | disposition home or self-care (01) ==
LOC: ANHFOHIMG 14:35
PROVIDERS: PCP Internal Medicine; Visit Provider Obstetrics & Gynecology
DX: Z12.31 Encounter for screening mammogram for malignant neoplasm of breast (principal)
CPT/HCPCS: 77063; 77067

== ENCOUNTER 2025-02-10 13:57 | Emergency (ER) | payer MEDICARE, SELFPAY ==
[2025-02-10 14:08] VITALS: BP 131/73; PULSE 72; RESP 16; TEMP 36.6; O2SAT 99
--- NOTE | 2025-02-10 15:17 | ECG_ITS ---
Test Date: 2025-02-10 15:23:14 Measurements Intervals [place] Rate: 60 P: 65 TX: 175 QRS: -50 QRSD: 110 T: 38 QT: 390 QTc: 390 Interpretive Statements SINUS RHYTHM POSSIBLE LEFT ATRIAL ENLARGEMENT INCOMPLETE RIGHT BUNDLE BRANCH BLOCK LEFT ANTERIOR FASCICULAR BLOCK CANNOT R/O SEPTAL INFARCT, AGE INDETERMINATE BASELINE ARTIFACT- I, II, III, AVR, AVF, V1-V2 ABNORMAL ECG Compared to ECG 10/07/2024 11:35:30 Left anterior fascicular block now present Electronically Signed On 02-10-2025 15:58:45 CDT by Ulices Garcia D.O.
--- NOTE | 2025-02-10 15:18 | ED.GENADULT ---
HPI - General Adult General Chief complaint: Abdominal Pain Stated complaint: Digestive Prob Time Seen by Provider: 02/10/25 15:08 Source: patient and RN notes reviewed Mode of arrival: ambulatory Limitations: no limitations History of Present Illness HPI narrative: 74-year-old female patient presents today complaining of upper abdominal ?burning?, rumbling, and indigestion since yesterday as well as some mild nausea. Denies pain in the abdomen. Denies diarrhea, constipation, radiation of the discomfort, dizziness or lightheadedness, sweats or chills, numbness or tingling, shortness of breath. She has tried Pepcid and Tums without improvement. Reports history of hiatal hernia but states her hiatal hernia symptoms are not similar to current symptoms. Patient states she is eating and drinking, had soup for lunch. Reports that she is leaving on vacation in a few days and wanted to get checked before she left. Related Data Home Medications ?Medication ?Instructions ?Recorded ?Confirmed ?Last Taken ?Type alprazolam 0.25 mg tablet 0.25 mg PO PRN anxiety 12/11/19 12/08/24 05/27/23 History atorvastatin 20 mg tablet 20 mg PO DAILY 12/11/19 12/08/24 05/26/23 History denosumab 60 mg/mL subcutaneous 60 mg subcut [id number] 12/29/19 12/08/24 05/26/23 History syringe (Prolia) multivitamin 1 tablet PO DAILY 10/26/23 12/08/24 Unknown History fexofenadine 60 mg tablet (Lupe 60 mg PO Q12H 12/02/23 12/08/24 Unknown History Allergy) loperamide 2 mg capsule (Imodium 2 mg PO Q6H PRN 12/02/23 12/08/24 Unknown History A-D) famotidine 10 mg tablet (Pepcid AC) 10 mg PO DAILY 04/05/24 12/08/24 Unknown History escitalopram oxalate 5 mg tablet mg PO DAILY 04/08/24 12/08/24 Unknown History calcium carbonate 500 mg PO DAILY 12/08/24 12/08/24 Unknown History cholecalciferol (vitamin D3) 62.5 mcg PO 12/08/24 12/08/24 Unknown History mcg (2,500 unit) capsule phytonadione (vitamin K1) 5 mg 2.5 mg PO DAILY 12/08/24 12/08/24 Unknown History tablet Allergies Allergy/AdvReac Type Severity Reaction Status Date / Time No Known Allergies Allergy Unknown Verified 02/10/25 14:23 [facility] Past Medical History Medical History Lymphocytic colitis Renal insufficiency EDER positive (~2020) History of hyperlipidemia History of anxiety Surgical History Surgical History History of bladder surgery Hx of breast reduction, elective Family History Family History Mother Hypertension Cancer lung Father Hypertension Grandparent Alzheimers disease Social History Social History Social History: Caffeine- coffee/tea Smoking status: Never smoker Alcohol intake: current Drinks per week: 2 Alcohol use details: occasionally Substance use: never Substance use type: does not use Do You Feel Safe in your Home?: Yes Lack of Transportation: No Lack of Food: Never True Current Housing: I Have Housing Concerned About Future Housing: No Difficulty Paying Gas/Electric Bills: No Difficulty Paying for Meds: No Currently Unemployed: No Education: Associate Degree Difficulty w/ Childcare or Family Care: No Living arrangements: with family Additional living arrangements comments: lives with disabled Occupation/Education: retired Gender identity (if verbalized by the patient): Female Spiritual care concerns: No Comments At time of signature, I have reviewed and agree with nursing past medical, surgical, social and family history unless otherwise noted. Please see nursing chart for further information. There is no relevant family history pertinent to the presenting complaint Exam Narrative: GENERAL: Well-appearing, well-nourished, and in no acute distress. HEAD: Normocephalic, atraumatic. EYES: EOMI. No redness or drainage. Conjunctivae normal. ENT: Mucous membranes pink and moist. NECK: Normal AROM. CHEST: No respiratory distress. Clear to auscultation. HEART: Regular rate and rhythm. No murmur appreciated. Normal peripheral pulses. ABDOMEN: Soft,, nondistended, normal active bowel sounds.+ mildly tender in the right lower quadrant without rebound or guarding. EXTREMITIES: Normal range of motion. No edema. SKIN: Warm, dry, no rash. Capillary refill normal. Normal skin turgor. NEURO: No focal deficits. Alert and oriented x3. Gait steady. PSYCH: Normal affect. No signs of depression or anxiety. Course Course Level of Care: Express Care Visit Vital Signs Vital signs: Vital Signs Temperature 97.9 F 02/10/25 14:08 Pulse Rate 72 02/10/25 14:08 Respiratory Rate 16 02/10/25 14:08 Blood Pressure 131/73 02/10/25 14:08 Pulse Oximetry 99 02/10/25 14:08 Temperature 97.9 F 02/10/25 14:08 Pulse Rate 72 02/10/25 14:08 Respiratory Rate 16 02/10/25 14:08 Blood Pressure 131/73 02/10/25 14:08 Pulse Oximetry 99 02/10/25 14:08 Reviewed Medical Decision Making MDM Narrative Medical decision making narrative: 74-year-old female patient presents today complaining of upper abdominal ?burning?, rumbling, and indigestion since yesterday as well as some mild nausea. Denies pain in the abdomen. Denies diarrhea, constipation, radiation of the discomfort, dizziness or lightheadedness, sweats or chills, numbness or tingling, shortness of breath. She has tried Pepcid and Tums without improvement. Reports history of hiatal hernia but states her hiatal hernia symptoms are not similar to current symptoms. Upon exam, patient is well appearing with mildly tender right lower quadrant without rebound or guarding. She has no tenderness in the epigastrium or remainder of the abdomen. EKG shows sinus rhythm. Offered patient transfer to the ER for further evaluation of her symptoms, especially due to the mild tenderness in her right lower abdomen. Patient declines ER transfer at this time as she would like to try Mylanta or gaviscon at home. We discussed possible differential diagnoses as well as diagnostic limitations of the [facility]. States that she will proceed to the ER tomorrow if symptoms persist. VSS. Differential Diagnosis Differential Diagnosis: Hiatal hernia, GERD, esophagitis, gastritis, [place], appendicitis Vital Signs Vital Signs: Vital Signs Temperature 97.9 F 02/10/25 14:08 Pulse Rate 72 02/10/25 14:08 Respiratory Rate 16 02/10/25 14:08 Blood Pressure 131/73 02/10/25 14:08 Pulse Oximetry 99 02/10/25 14:08 Temperature 97.9 F 02/10/25 14:08 Pulse Rate 72 02/10/25 14:08 Respiratory Rate 16 02/10/25 14:08 Blood Pressure 131/73 02/10/25 14:08 Pulse Oximetry 99 02/10/25 14:08 ECG Data EKG #1: Attestation: I personally reviewed and interpreted this ECG as follows: ECG completion date: 02/10/25 ECG completion time: 15:23 Prior ECG tracings: available for review Interpretation: Sinus rhythm. HR 60. NV interval 175 Critical Care Time Critical Care Time Critical Care Time: No Discharge Plan Discharge Clinical Impression: Abdominal discomfort Patient Disposition: Home Condition: Stable Instructions: Abdominal Pain (ED) Additional Instructions: You have declined transfer to the ER today for further evaluation. If symptoms worsen or persist, please proceed to the ER. Patient Language: Zambian Prescriptions: No Action multivitamin [One A Day Vitamin] Tablet 1 tablet PO DAILY Prolia 60 mg/mL syringe 60 mg SUB-Q [id number] fexofenadine [Lupe Allergy] 60 mg tablet 60 mg PO Q12H loperamide [Imodium A-D] 2 mg capsule 2 mg PO Q6H PRN famotidine [Pepcid AC] 10 mg tablet 10 mg PO DAILY escitalopram oxalate 5 mg tablet PO DAILY calcium carbonate 500 mg calcium (1,250 mg) tablet 500 mg PO DAILY phytonadione (vitamin K1) 5 mg tablet 2.5 mg PO DAILY cholecalciferol (vitamin D3) 62.5 mcg (2,500 unit) capsule PO [id number] [Fioricet] 50-300-40 mg capsule 1 cap PO Q8H PRN (Reason: pain) Qty: 30 0RF atorvastatin 20 mg tablet 20 mg PO DAILY alprazolam 0.25 mg tablet 0.25 mg PO PRN Follow-up/Referrals: Tanvir,MD Arie [Primary Care Provider] Time of Disposition: 15:46
== END 2025-02-10 15:49 | disposition home or self-care (01) ==
PROVIDERS: Emergency Provider Nurse Practitioner; PCP Internal Medicine
DX: R10.10 Upper abdominal pain, unspecified (principal); R11.0 Nausea
CPT/HCPCS: 93005; 99213; G0463

== ENCOUNTER 2025-03-06 08:41 | Emergency (ER) | payer MEDICARE, SELFPAY ==
[2025-03-06 08:48] VITALS: BP 114/67; PULSE 72; RESP 16; TEMP 36.4; O2SAT 100
--- NOTE | 2025-03-06 09:42 | ED.URI ---
HPI - URI/Sore Throat General Chief Complaint: Upper Respiratory Infection Stated Complaint: Congestion Time Seen by Provider: 03/06/25 09:34 Source: patient and RN notes reviewed Mode of arrival: ambulatory Limitations: no limitations History of Present Illness HPI Narrative: 74-year-old female patient presents today with a 2 week history of cough, postnasal drip, nasal congestion. Patient started getting sick on her way back from [facility]. Her dry cough has turned productive and she has developed some chest wall pain with coughing. Denies fever or shortness throat. She initially started taking Lupe but has switched over to Mucinex over the past 3-4 days. Denies much improvement with either. Denies history of asthma or COPD. She is a nonsmoker. Related Data Home Medications ?Medication ?Instructions ?Recorded ?Confirmed ?Last Taken ?Type alprazolam 0.25 mg tablet 0.25 mg PO PRN anxiety 12/11/19 03/06/25 05/27/23 History atorvastatin 20 mg tablet 20 mg PO DAILY 12/11/19 03/06/25 05/26/23 History denosumab 60 mg/mL subcutaneous 60 mg subcut [id number] 12/29/19 03/06/25 05/26/23 History syringe (Prolia) multivitamin 1 tablet PO DAILY 10/26/23 03/06/25 Unknown History fexofenadine 60 mg tablet (Lupe 60 mg PO Q12H 12/02/23 03/06/25 Unknown History Allergy) loperamide 2 mg capsule (Imodium 2 mg PO Q6H PRN loose stool 12/02/23 03/06/25 Unknown History A-D) famotidine 10 mg tablet (Pepcid AC) 10 mg PO DAILY 04/05/24 03/06/25 Unknown History escitalopram oxalate 5 mg tablet mg PO DAILY 04/08/24 03/05/25 Unknown History calcium carbonate 500 mg PO DAILY 12/08/24 03/06/25 Unknown History cholecalciferol (vitamin D3) 62.5 mcg PO 12/08/24 03/05/25 Unknown History mcg (2,500 unit) capsule phytonadione (vitamin K1) 5 mg 2.5 mg PO DAILY 12/08/24 03/06/25 Unknown History tablet estradiol 0.01% (0.1 mg/gram) vaginal 03/06/25 Unknown History vaginal cream Allergies Allergy/AdvReac Type Severity Reaction Status Date / Time No Known Allergies Allergy Unknown Verified 03/06/25 08:59 [facility] Past Medical History Medical History Lymphocytic colitis Renal insufficiency EDER positive (~2019) History of hyperlipidemia History of anxiety Surgical History Surgical History History of bladder surgery Hx of breast reduction, elective Family History Family History Mother Hypertension Cancer lung Father Hypertension Grandparent Alzheimers disease Social History Social History Social History: Caffeine- coffee/tea Smoking status: Never smoker Alcohol intake: current Drinks per week: 2 Alcohol use details: occasionally Substance use: never Substance use type: does not use Do You Feel Safe in your Home?: Yes Lack of Transportation: No Lack of Food: Never True Current Housing: I Have Housing Concerned About Future Housing: No Difficulty Paying Gas/Electric Bills: No Difficulty Paying for Meds: No Currently Unemployed: No Education: Associate Degree Difficulty w/ Childcare or Family Care: No Living arrangements: with family Additional living arrangements comments: lives with disabled Occupation/Education: retired Gender identity (if verbalized by the patient): Female Spiritual care concerns: No Comments At time of signature, I have reviewed and agree with nursing past medical, surgical, social and family history unless otherwise noted. Please see nursing chart for further information. There is no relevant family history pertinent to the presenting complaint Exam Narrative: GENERAL: Mildly ill-appearing, well-nourished, and in no acute distress. HEAD: Normocephalic, atraumatic. EYES: EOMI. No redness or drainage. Conjunctivae normal. ENT: Mucous membranes pink and moist. Nares congested. No rhinorrhea. Bilateral maxillary sinus tenderness. TMs normal bilaterally. Throat normal. Uvula midline. NECK: Normal AROM. Supple. No lymphadenopathy. CHEST: No respiratory distress. Clear to auscultation. HEART: Regular rate and rhythm. No murmur appreciated. EXTREMITIES: Normal range of motion. No edema. SKIN: Warm, dry, no rash. Capillary refill normal. Normal skin turgor. NEURO: No focal deficits. Alert and oriented x3. Gait steady. PSYCH: Normal affect. No signs of depression or anxiety. Course Course Level of Care: Express Care Visit Vital Signs Vital signs: Vital Signs Temperature 97.5 F L 03/06/25 08:48 Pulse Rate 72 03/06/25 08:48 Respiratory Rate 16 03/06/25 08:48 Blood Pressure 114/67 03/06/25 08:48 Pulse Oximetry 100 03/06/25 08:48 Temperature 97.5 F L 03/06/25 08:48 Pulse Rate 72 03/06/25 08:48 Respiratory Rate 16 03/06/25 08:48 Blood Pressure 114/67 03/06/25 08:48 Pulse Oximetry 100 03/06/25 08:48 Reviewed MDM - URI/Sore Throat MDM Narrative Medical decision making narrative: 74-year-old female patient presents today with a 2 week history of cough, postnasal drip, nasal congestion. Patient started getting sick on her way back from [facility]. Her dry cough has turned productive and she has developed some chest wall pain with coughing. Denies fever or shortness throat. She initially started taking Lupe but has switched over to Mucinex over the past 3-4 days. Denies much improvement with either. Denies history of asthma or COPD. She is a nonsmoker. Upon exam, patient is mildly ill appearing with nasal congestion and maxillary sinus tenderness. She will be treated with a course of Augmentin for sinusitis. She may continue OTC medication as well. Patient agrees with plan. Vital signs stable. Anticipatory guidance given. Differential Diagnosis Differential diagnosis: Likely upper respiratory infection, otitis media, sinusitis, viral infection and bronchitis Critical Care Time Critical Care Time Critical Care Time: No Discharge Plan Discharge Clinical Impression: Sinusitis Qualifiers: Sinusitis location: maxillary Chronicity: acute Recurrence: non-recurrent Qualified Code(s): J01.00 - Acute maxillary sinusitis, unspecified Patient Disposition: Home Condition: Stable Instructions: Antibiotic Form, Sinusitis (ED) Additional Instructions: Please take the Augmentin as prescribed until gone. You may continue [id number]-[id number]-[id number] medication as needed. Follow-up with your PCP in 3-4 days if symptoms are not improving. Patient Language: Romansh Prescriptions: New amoxicillin-pot clavulanate 875-125 mg tablet 1 tablet PO Q12H 7 Days Qty: 14 0RF No Action multivitamin [One A Day Vitamin] Tablet 1 tablet PO DAILY estradiol 0.01 % (0.1 mg/gram) cream VAGINAL Prolia 60 mg/mL syringe 60 mg SUB-Q [id number] fexofenadine [Lupe Allergy] 60 mg tablet 60 mg PO Q12H loperamide [Imodium A-D] 2 mg capsule 2 mg PO Q6H PRN (Reason: loose stool) famotidine [Pepcid AC] 10 mg tablet 10 mg PO DAILY escitalopram oxalate 5 mg tablet PO DAILY calcium carbonate 500 mg calcium (1,250 mg) tablet 500 mg PO DAILY phytonadione (vitamin K1) 5 mg tablet 2.5 mg PO DAILY cholecalciferol (vitamin D3) 62.5 mcg (2,500 unit) capsule PO [id number] [Fioricet] 50-300-40 mg capsule 1 cap PO Q8H PRN (Reason: pain) Qty: 30 0RF atorvastatin 20 mg tablet 20 mg PO DAILY alprazolam 0.25 mg tablet 0.25 mg PO PRN Follow-up/Referrals: Tanvir,MD Arie [Non-Staff] Time of Disposition: 09:46
== END 2025-03-06 09:50 | disposition home or self-care (01) ==
PROVIDERS: Emergency Provider Nurse Practitioner
DX: J01.00 Acute maxillary sinusitis, unspecified (principal); E78.5 Hyperlipidemia, unspecified; F41.9 Anxiety disorder, unspecified
CPT/HCPCS: 99213; G0463

== ENCOUNTER 2025-03-11 10:43 | Emergency (ER) | payer MEDICARE, SELFPAY ==
--- NOTE | ~2025-03-11 | XR_ITS ---
Examination: XR chest 2V Clinical History: cough/sob Comparison: 11/05/2023 Technique: PA and Lateral Findings: Cardiomediastinal silhouette normal size and configuration. Lungs clear. No acute bony abnormality. IMPRESSION: 1. No acute cardiopulmonary findings. Reviewed, dictated and finalized at location R. [facility]
--- NOTE | 2025-03-11 10:48 | ED.URI ---
HPI - URI/Sore Throat General Chief Complaint: Upper Respiratory Infection Stated Complaint: Trouble Breathing Time Seen by Provider: 03/11/25 11:00 Source: patient Mode of arrival: ambulatory Limitations: no limitations History of Present Illness HPI Narrative: Aliyah is a 74-year-old female patient presenting to the clinic today with complaints of difficulty breathing. She reports when she is lying flat she feels as though she is wheezing and her chest is rattling. Was seen approximately 1 week ago and diagnosed with sinusitis. Was given prescription for Augmentin. She has 1 day left of her medications. States the symptoms have been going on for over 2 weeks. States she is coughing up and blowing out phlegm at this time. Is concerned she may have pneumonia. States she feels very anxious about her breathing. Related Data Home Medications ?Medication ?Instructions ?Recorded ?Confirmed ?Last Taken ?Type alprazolam 0.25 mg tablet 0.25 mg PO PRN anxiety 12/11/19 03/06/25 05/27/23 History atorvastatin 20 mg tablet 20 mg PO DAILY 12/11/19 03/06/25 05/26/23 History denosumab 60 mg/mL subcutaneous 60 mg subcut [id number] 12/29/19 03/06/25 05/26/23 History syringe (Prolia) multivitamin 1 tablet PO DAILY 10/26/23 03/06/25 Unknown History fexofenadine 60 mg tablet (Lupe 60 mg PO Q12H 12/02/23 03/06/25 Unknown History Allergy) famotidine 10 mg tablet (Pepcid AC) 10 mg PO DAILY 04/05/24 03/06/25 Unknown History escitalopram oxalate 5 mg tablet mg PO DAILY 04/08/24 03/05/25 Unknown History calcium carbonate 500 mg PO DAILY 12/08/24 03/06/25 Unknown History cholecalciferol (vitamin D3) 62.5 mcg PO 12/08/24 03/05/25 Unknown History mcg (2,500 unit) capsule estradiol 0.01% (0.1 mg/gram) vaginal 03/06/25 Unknown History vaginal cream Allergies Allergy/AdvReac Type Severity Reaction Status Date / Time No Known Allergies Allergy Unknown Verified 03/06/25 08:59 Review of Systems Review of Systems: Pertinent positives per HPI. Patient denies any fever, chills, rash, headache, visual changes, dizziness, cough, shortness of breath, chest pain, palpitations, nausea, vomiting, diarrhea, constipation, abdominal pain, or any urinary issues. [facility] Past Medical History Medical History Lymphocytic colitis Renal insufficiency EDER positive (~2019) History of hyperlipidemia History of anxiety Surgical History Surgical History History of bladder surgery Hx of breast reduction, elective Family History Family History Mother Hypertension Cancer lung Father Hypertension Grandparent Alzheimers disease Social History Social History Social History: Caffeine- coffee/tea Smoking status: Never smoker Alcohol intake: current Drinks per week: 2 Alcohol use details: occasionally Substance use: never Substance use type: does not use Lack of Transportation: No Lack of Food: Never True Current Housing: I Have Housing Concerned About Future Housing: No Difficulty Paying Gas/Electric Bills: No Difficulty Paying for Meds: No Currently Unemployed: No Education: Associate Degree Difficulty w/ Childcare or Family Care: No Living arrangements: with family Additional living arrangements comments: lives with disabled Occupation/Education: retired Gender identity (if verbalized by the patient): Female Spiritual care concerns: No Comments At the time of my signature, I reviewed and agree with the nursing past medical, surgical, social, and family history. There is no relevant family history pertinent to the patient complaint. Exam Narrative: General: Well-developed, well nourished, in no apparent distress Head: Normocephalic, atraumatic Eyes: Pupils equally round and reactive to light bilaterally, EOM intact, sclera and conjunctive clear, no discharge, lids normal Ears: TMs intact and congested, ear canals clear, no drainage, grossly hearing normal. Nose: Nares patent, clear discharge, no inflammation, no sinus tenderness. Mouth: Oral pharynx without lesions or masses, good dentition, MMM. Postnasal drip Neck: Supple, trachea midline, no enlargement of anterior or posterior cervical nodes, no thyroid masses or goiter palpable. Cardio: Regular rate and rhythm, s1 and s2 normal, no murmur appreciated. Resp: Diminished in the bases otherwise clear, no rhonchi, rales, wheezing or rubs Course Course Emergency Course: Portions of this record may have been created with voice recognition software. Level of Care: Express Care Visit Vital Signs Vital signs: Vital Signs Temperature 36.3 C L 03/11/25 10:55 Pulse Rate 76 03/11/25 10:55 Respiratory Rate 16 03/11/25 10:55 Blood Pressure 130/68 03/11/25 10:55 Pulse Oximetry 99 03/11/25 10:55 Temperature 36.3 C L 03/11/25 10:55 Pulse Rate 76 03/11/25 10:55 Respiratory Rate 16 03/11/25 10:55 Blood Pressure 130/68 03/11/25 10:55 Pulse Oximetry 99 03/11/25 10:55 Vital signs reviewed MDM - URI/Sore Throat MDM Narrative Medical decision making narrative: At the time of visit patient is resting comfortably on the exam table. Patient appears to be nontoxic. Complaints of difficulty breathing. She reports when she is lying flat she feels as though she is wheezing and her chest is rattling. Was seen approximately 1 week ago and diagnosed with sinusitis. Was given prescription for Augmentin. She has 1 day left of her medications. States the symptoms have been going on for over 2 weeks. States she is coughing up and blowing out phlegm at this time. Is concerned she may have pneumonia. States she feels very anxious about her breathing. On exam patient has bilateral TMs intact and congested, clear nasal drainage, mild anterior turbinate inflammation, oral pharynx with postnasal drip, heart rates regular rate and rhythm, lung sounds are diminished in the bases otherwise clear. Patient is requesting chest x-ray. Diagnostics: Chest x-ray was negative for any acute cardiopulmonary process. Plan: I suspect patient has bronchitis. Prescription for prednisone and albuterol inhaler was sent to the pharmacy. Supportive measures were discussed with the patient and they voiced understanding discharge instructions and agrees to treatment plan. Return precautions reviewed Differential Diagnosis Differential diagnosis: Likely upper respiratory infection, otitis media, sinusitis, viral infection, bronchitis, influenza, pharyngitis and other (COVID) Imaging Data Radiologist's impression: ITS Impressions Chest X-Ray 03/11/25 11:10 IMPRESSION: 1. No acute cardiopulmonary findings. Discharge Plan Discharge Clinical Impression: Bronchitis Patient Disposition: Home Condition: Stable Instructions: Antibiotic Form, Acute Bronchitis (ED) Additional Instructions: Chest x-rays negative for any acute cardiopulmonary process. Take prescription medications only as prescribed-prednisone and albuterol inhaler Increase fluids and stay well hydrated May take Tylenol or motrin as directed on bottle for pain/fever May use Flonase 1 spray in each nare daily May take OTC antihistamines such as Zyrtec or Claritin daily as directed on bottle May apply Vicks vapor rub to chest to open sinuses Sinus rinses for congestion Cepacol spray, cough drops, throat lozenges, warm tea with honey/lemon, gargle salt water to soothe throat BRAT diet for diarrhea Clear liquids x 24 hours then advance as tolerated for nausea/vomiting Go to the ED if you develop a worsening in your condition- high fever not controlled by Tylenol or Motrin, dehydration, weakness, lethargy, shortness of breath, or chest pain. Follow up with your PCP in 3-5 days if symptoms persist. Patient Language: Estonian Prescriptions: New albuterol sulfate 90 mcg/actuation HFA aerosol inhaler 2 puff inhalation Q4-6H PRN (Reason: shortness of breath or wheezing) 30 Days Qty: 8.5 0RF prednisone 20 mg tablet 40 mg PO DAILY 5 Days Qty: 10 0RF No Action multivitamin [One A Day Vitamin] Tablet 1 tablet PO DAILY estradiol 0.01 % (0.1 mg/gram) cream VAGINAL amoxicillin-pot clavulanate 875-125 mg tablet 1 tablet PO Q12H 7 Days Qty: 14 0RF Prolia 60 mg/mL syringe 60 mg SUB-Q [id number] fexofenadine [Lupe Allergy] 60 mg tablet 60 mg PO Q12H famotidine [Pepcid AC] 10 mg tablet 10 mg PO DAILY escitalopram oxalate 5 mg tablet PO DAILY calcium carbonate 500 mg calcium (1,250 mg) tablet 500 mg PO DAILY cholecalciferol (vitamin D3) 62.5 mcg (2,500 unit) capsule PO [id number] [Fioricet] 50-300-40 mg capsule 1 cap PO Q8H PRN (Reason: pain) Qty: 30 0RF atorvastatin 20 mg tablet 20 mg PO DAILY alprazolam 0.25 mg tablet 0.25 mg PO PRN Follow-up/Referrals: Tanvir,MD Arie [Primary Care Provider] Time of Disposition: 11:15 Quality NIHSS Nursing Documentation ED NIHSS nursing documentation: reviewed/agree
[2025-03-11 10:55] VITALS: BP 130/68; PULSE 76; RESP 16; TEMP 36.3; O2SAT 99
== END 2025-03-11 11:35 | disposition home or self-care (01) ==
PROVIDERS: Emergency Provider Nurse Practitioner Family; PCP Internal Medicine
DX: J40 Bronchitis, not specified as acute or chronic (principal); E78.5 Hyperlipidemia, unspecified; F41.9 Anxiety disorder, unspecified
CPT/HCPCS: 71046; 99213; G0463